=== PATIENT | female | born 1965 | race Caucasian/White ===

== ENCOUNTER 2020-01-19 08:46 | Outpatient (CLI) | payer MEDICAID, SELFPAY ==
[2020-01-21 17:42] LABS: COVID-19 RT-PCR Result NEGATIVE (Negative)
== END 2020-01-19 09:06 ==
PROVIDERS: PCP Neuromusculoskeletal Medicine & OMM; Visit Provider Orthopaedic Surgery
DX: Z11.59 Encounter for screening for other viral diseases (principal); Z01.818 Encounter for other preprocedural examination
CPT/HCPCS: U0003

== ENCOUNTER 2020-07-08 13:06 | Outpatient (REF) | payer MEDICAID, SELFPAY ==
--- NOTE | 2020-07-08 11:42 | PAPFT_PTH ---
PATIENT: Rox Cervantes LOC: [facility] U#:[id number] AGE/SX: 54/F ROOM: RE07/08/[address]: Toya Muniz MD : 1965 BED: DIS: 07/08/2020 SPEC #: [id number] RECD: 07/08/20 18:25 STATUS: JEANETH REAmado #: [id number] DEBORA: 07/08/20 11:[address]: Toya Muniz DEPT: [facility] Cytology RECD BY: Yenifer Leon ENTERED: 07/08/20 18:26 SP TYPE: PAPFT OTHR DR: Percy Roche Tissues: 1 - CX/ENDOCX FOR PAP SMEARS Procedures: PAP THIN PREP/UVM Screening HPV DNA PROBE Comments: [id number]
== END 2020-07-08 13:07 | disposition home or self-care (01) ==
LOC: LBN 13:06
PROVIDERS: PCP Neuromusculoskeletal Medicine & OMM; Visit Provider Obstetrics & Gynecology
DX: Z12.4 Encounter for screening for malignant neoplasm of cervix (principal); Z11.51 Encounter for screening for human papillomavirus (HPV); R87.810 Cervical high risk human papillomavirus (HPV) DNA test positive
CPT/HCPCS: 88142; 87624

== ENCOUNTER 2020-07-16 02:02 | Outpatient (CLI) | payer MEDICAID, SELFPAY ==
--- NOTE | 2020-07-16 06:45 | DI.MAMMO_ITS ---
EXAM: MAMMO SCREENING CLINICAL HISTORY: screening,z12.39 TECHNIQUE: Mammograms were interpreted according to the usual protocol including computer analysis w [employer] CAD system, tomosynthesis and C-view imaging. COMPARISON: FINDINGS: The breasts are of moderate density with fairly symmetrical distribution of fibroglandular tissue. N o dominant mass or clumped microcalcification is identified in either breast. No prior examinations are available for comparison. IMPRESSION: No specific evidence of malignancy at this time. Routine screening examinations are suggested at yea rly intervals in this age group according to the ACS ACR guidelines. BI-RADS Category 1 - Negative Breast Density - Category B - Scattered areas of fibroglandular density
== END 2020-07-16 02:22 ==
PROVIDERS: PCP Neuromusculoskeletal Medicine & OMM; Visit Provider Obstetrics & Gynecology
DX: Z12.31 Encounter for screening mammogram for malignant neoplasm of breast (principal)
CPT/HCPCS: 77063; 77067

== ENCOUNTER → 2022-04-02 13:03 | Outpatient (CLI) | payer MEDICAID, SELFPAY ==
--- NOTE | 2022-04-02 08:00 | DI.RAD_ITS ---
Exam(s) XR KNEE LT 4V AP,LAT,GERALDO,PAT XR KNEE RT 4V AP,LAT,GERALDO,PAT EXAM: XR KNEE RT 4V AP,LAT,GERALDO,PAT CLINICAL HISTORY: Severe knee pain, OA of bilateral knees, M17.0 TECHNIQUE: COMPARISON: CR XR KNEE LT 4V AP,LAT,GERALDO,PAT from 04/02/2022 FINDINGS: Four views of each knee were obtained. On the right, there is mild narrowing of the cartilaginous joint space of the medial tibiofemoral jarred nt. Otherwise cartilaginous joint spaces are well maintained. Moderate marginal osteophytes are not ed involving all 3 joints of the right knee. There are moderate-sized superior and inferior patellar enthesophytes. On the left, there may be slight narrowing of the medial tibiofemoral cartilaginous joint space. Oth erwise cartilaginous joint spaces are well maintained. Mild marginal osteophytes seen involving all 3 joints, superior patellar enthesophyte is also noted. IMPRESSION: Mild DJD both knees period RADIATION DOSE DELIVERED: Total DLP
--- OUTSIDE RECORDS SUMMARY | 2022-04-02 13:05 | XMS_ITS | CCD ---
:1965 Author Care Team Providers Name Role Phone MAE ALVAREZ Attending Physician Unavailable Vital Signs Unknown or Not Available. Allergies Unknown or Not Available. Procedures Unknown or Not Available. History of Immunizations Unknown or Not Available. Problems Unknown or Not Available. Results Unknown or Not Available. Active Medications Unknown or Not Available. Medications Administered During Visit Unknown or Not Available. Encounters Unknown or Not Available. Social History Smoking Status Code Start Date End Date Never smoker [id number] Patient Decision Aids Unknown or Not Available. Discharge Instructions You were admitted to [facility] on 06/21/2021 05:52 You were discharged from [facility] on 06/21/2021 05:52 Should you have any questions prior to d ischarge, please contact a member of your healthcare team. If you have left the [facility] and have any questions, please contact your primary care physician. Chief Complaint and Reason For Visit Unknown or Not Available. Function Status Unknown or Not Available. Plan of Care Unknown or Not Available. Referral/Transition of Care Unknown or Not Available.
--- OUTSIDE RECORDS SUMMARY | 2022-04-02 13:06 | XMS_ITS | Continuity of Care Document ---
:1965 Author Organization [facility] Address [address] [place] [address] Care Team Providers Name Role Phone Percy Roche Primary Care Physician Encounter [facility] Date(s): 02/16/22 - 02/16/22 [facility] [address] [place] [address] Discharge Disposition: Home or Self Care Attending Physician: Rox Clancy NP Admitting Physician: Rox Clancy NP Referring Physician: Rox Clancy FUEL CELL TEST ENGINEER Allergies, Adverse Reactions, Alerts Substance Reaction Severity Status meperidine Unknown Active aspirin Unknown Active cyclobenzaprine Unknown Active Demerol Unknown Active diphenhydrAMINE Unknown Active Assessment and Plan Future Appointments Immunizations Given and Recorded Vaccine Date Status Refusal Reason zoster vaccine, inactivated1 04/28/21 Recorded zoster vaccine, inactivated2 01/06/21 Recorded tetanus-diphth toxoids (Td) adult/adol3 01/06/21 Recorded SARS-CoV-2 (COVID-19) mRNA-1273 vaccine 09/22/20 Recorded SARS-CoV-2 (COVID-19) mRNA-1273 vaccine 08/25/20 Recorded influenza virus vaccine, inactivated 03/31/11 Recorded influenza virus vaccine, inactivated 09/09/10 Recorded tetanus/diphth/pertuss (Tdap) adult/adol 09/09/10 Recorde d 1Result Comment: Validated by RN FUEL CELL TEST ENGINEER. Patient tolerated well. Pressure bandage a2 Result Comment: pt. tolerated vaccine well; diluent Lot# [id number] Comment: pt. tolerated vaccine well Medications erythromycin 0.5% ophthalmic ointment 1 louis, Eye-Both, TID, APPLY 1 CM RIBBON INTO THE LOWER CONJUNCTIVAL SAC(S) IN THE AFFECTED EYE(S) BYOPHTHALMIC ROUTE 3 TIMES PER DAY, 0 Refill(s) Start Date: 12/31/21 Status: Orderedsertraline 100 mg oral tablet 150 mg = 1.5 tab, Oral, Daily, 0 Refill(s) Start Date: 11/18/21 Status: OrderedtraMADol 50 mg oral tablet 50 mg = 1 tab, Oral, every 12 hr, PRN as needed for pain, # 56 tab, 0 Refill(s), Pharmacy: [id number] Start Date: 01/21/22 Status: OrderedtraZODone 50 mg oral tablet 50 mg = 1 tab, Oral, every night at bedtime, 0 Refill(s) Start Date: 11/18/21 Status: Orderedtriamcinolone 0.1% topical cream 1 louis, Topical, BID, # 80 g, 3 Refill(s), Pharmacy: [id number] Start Date: 12/09/21 Status: Ordered Problem List Condition Confirmation Course Effective Dates Status Health I nformant Status Arthropathy Confirmed Active Calcaneal spur of Confirmed Active right foot Carpal tunnel Confirmed Active syndrome Ganglion and cyst of Confirmed Active synovium, tendon and bursa Deformity Confirmed 03/06/20 Active Depressive disorder Confirmed Active Hip pain Confirmed Active Hyperlipidemia Confirmed Active Idiopathic Confirmed Active osteoarthritis Insomnia Confirmed Active Knee pain Confirmed Active Obesity Confirmed Active Plantar fascial Confirmed Active fibromatosis Sciatica Confirmed Active Snoring Confirmed Active Procedures Procedure Date Related Diagnosis Body Site Status Carpal tunnel release1 08/07/21 Compl eted Cholecystectomy 01/03/96 Completed 1Right and Left at [facility] Social History Social History Type Response Tobacco Former tobacco user Tobacco Use:. Sex Female Patient Care team information PersonnelName: Percy Roche DO Address: Address: [place] [facility] [address]
--- OUTSIDE RECORDS SUMMARY | 2022-04-02 13:06 | XMS_ITS | Encounter Summary ---
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 Reason for Visit Reason Comments Follow-up Encounter Details Date Type Department Care Team Description 04/15/2020 Office Visit [facility] Slava Remy fic Achilles tendinitis of left lower extremity (Primary Dx); [facility] Bailee Lawton MD Little's deformity, bilateral [place] [address] Diony [place], [facility] [address] [facility] [phone] Social History Tobacco Use Types Packs/Day Years Used Date Smoking Tobacco: Former Cigarettes 0.3 Quit : 02/2019 Smokeless Tobacco: Never Comments: off and on 15 yrs Sex Assigned at Date Recorded Not on file documented as of this encounter Functional Status Functional Status Response Date of Assessment Because of a physical, mental, or emotional condition, No 03/10/2019 does this person have difficulty doing errands alone such as visiting a doctor's office or shopping? Cognitive Status Response Date of Assessment Because of a physical, mental, or emotional condition, No 03/10/2019 does this person have serious difficulty concentrating, remembering, or making decisions? documented as of this encounter Progress Notes Slava Remy MD - 04/15/2020 1515 EST Diagnosis: ICD-10-CM ICD-9-CM 1. 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 Roche She is now 3 months post left Achilles debridement and Little's resection. The patient denies fever, wound drainage, increasing redness, pus, increasing pain, increasing swelling. Post op problems reported: none. Current immobilization: walking boot. Pain Vitals: Pain Location: Foot Sandhu-Wiley Pain Rating (Scale 0-10): Hurts little more Numeric Pain Level (Scale 1-10): 5 Pain in another site? : No Pain Quality: Aching, Sore, Numbness, Tingling Pain Duration: Continuous Pain Aggravating Factors: Activity, Movement Outpatient Medications Prior to Visit Medication Sig Dispense Refill ??? acetaminophen (TYLENOL) 500 mg tablet Take 500 mg by mouth every 6 hours as needed for Pain. ??? oxyCODONE (ROXICODONE) 5 mg immediate release tablet Take 1 Tab by mouth every 6 hours as neededfor Pain. Daily Max: 20 mg (Patient not taking: Reported on 02/05/2020) 10 Tab 0 ??? promethazine (PHENERGAN) 12.5 mg tablet Take 1 Tab by mouth every 6 hours as needed for Nausea. (Patient not taking: Reported on 02/05/2020) 20 Tab 0 ??? sertraline (ZOLOFT) 100 mg tablet Take 150 mg by mouth daily. ??? traMADol (ULTRAM) 50 mg tablet Take 50 mg by mouth. No facility-administered medications prior to visit. Allergies Allergen Reactions ??? Aspirin ??? Benadryl [Diphenhydramine Hcl] ??? Flexeril [Cyclobenzaprine] Objective: General : alert, no distress Gait: Normal, ambulatory aid: walking boot. Neurosensory: decreased slightly over the lateral left heel Vascular: intact Incision: healing well, no significant drainage, no dehiscence, no significant erythema Tenderness: left: mild Swelling: left: mild ROM: left - her Starks test is physiologic. Imaging: none Assessment: Status post left Achilles debridement and Little's resection. Doing well postoperatively. Plan: ICD-10-CM ICD-9-CM 1. 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 Amb Consult/Follow Up Physical Therapy Immobilization: none Activities: No impact loading activities for 6 weeks. Medications: none Imaging at next visit: none Follow up: Return in about 3 months (around 07/14/2020). Cc: Referring Provider - Dr. Roche PCP - Percy Roche documented in this encounter Plan of Treatment Scheduled Referrals Name Type Priority Associated Diagnoses Order S chedule AMB CONS/FOLLOW UP Outpatient Referral Routine Calcific Achill es Expected: PHYSICAL THERAPY tendinitis of left 04/22 lower extremity (Approximate) Little's deformity, bilateral documented as of this encounter Visit Diagnoses Diagnosis Calcific Achilles tendinitis of left low er extremity - Primary Little's deformity, bilateral documented in this encounter Care Teams Pantograph Ii Engraver Relationship Specialty Start Date End Date Percy Roche DO PCP - General 03/08/[address] [place] [id number] documented as of this encounter
--- OUTSIDE RECORDS SUMMARY | 2022-04-02 13:06 | XMS_ITS | CCD ---
:1965 Author Care Team Providers Name Role Phone MAE ALVAREZ Attending Physician Unavailable Vital Signs Unknown or Not Available. Allergies Allergy Code Allergy Type Reaction Status CYCLOBENZAPRINE 40375 Drug allergy Hives Active BENADRYL 073193 Drug allergy Hives Active ASPIRIN 119 Drug allergy Hives Active Procedures Unknown or Not Available. History of Immunizations Unknown or Not Available. Problems Unknown or Not Available. Results Unknown or Not Available. Active Medications Unknown or Not Available. Medications Administered During Visit Unknown or Not Available. Encounters Encounter Diagnosis Diagnosis Code Start Date Carpal tunnel syndrome, bilateral upper limbs [id number] 08/08/2021 Social History Smoking Status Code Start Date End Date Never smoker [id number] Patient Decision Aids Unknown or Not Available. Discharge Instructions You were admitted to [facility] on 08/08/2021 08:48 with a principal diagnosis of Carpal tunnel syndrome, bilateral upp er limbs You were discharged from [facility] on 08/08/2021 08:48 Should you have any questions prior to d ischarge, please contact a member of your healthcare team. If [facility] and have any questions, please contact your primary care physician. Chief Complaint and Reason For Visit Unknown or Not Available. Function Status Unknown or Not Available. Plan of Care Unknown or Not Available. Referral/Transition of Care Unknown or Not Available.
--- OUTSIDE RECORDS SUMMARY | 2022-04-02 13:06 | XMS_ITS | Encounter Summary ---
:1965 Author Organization [facility] Address [address] [place] [address] Care Team Providers Name Role Phone Percy Roche DO Primary Care Provider Encounter Details Date Type Department Care Team Description 01/23/2020 Hospital Encounter [facility] OR Slava Remy, [address] [place] [address] [facility] [phone] [place] [address] (Wo rk) Social History Tobacco Use Types Packs/Day Years Used Date Smoking Tobacco: Former Cigarettes 0.3 Quit : 02/2019 Smokeless Tobacco: Never Comments: off and on 15 yrs Sex Assigned at Date Recorded Not on file COVID-19 Exposure Response Date Recorded In the last month, have you been in contact with No / Unsure 01/23/2020 6:07 EDT someone who was confirmed or suspected to have Coronavirus / COVID-19? documented as of this encounter Last Filed Vital Signs Vital Sign Reading Time Taken Comments Blood Pressure 138/64 01/23/2020 1115 EDT Pulse - - Temperature 36.4 ??C (97.5 ??F) 01/23/2020 1115 EDT Respiratory Rate 10 01/23/2020 1115 EDT Oxygen Saturation 98% 01/23/2020 1115 EDT Inhaled Oxygen Concentration - - Weight 117.2 kg (258 lb 6.1 oz) 01/23/2020 0706 EDT Height 152.4 cm (5') 01/23/2020 0648 EDT Body Mass Index 50.46 01/23/2020 0648 EDT documented in this encounter Functional Status Functional Status Response [...] making decisions? documented as of this encounter Discharge Instructions Nanette Santana RN - 01/23/2020 Stay non-weight bearing on the left in short-leg splint. Keep incision dry. Followup with Dr. Remy in 2 weeks. Future Appointments Date Time Provider Department [facility] 02[facility]05/2020 8[facility]00 [facility] Pain control: There are 3 forms of medications you can take to decrease your pain. You can take all of them in combination, since that can increase the effectiveness of your pain relief. The three types of medications are: 1. Non-steroidal anti-inflammatories (NSAID's) Motrin/Advil/Ibuprofen - can take 3 pills (600mg) 4 times a day Aleve - you can take 2 pills (440mg) twice a day You should only take one type of NSAID (for example, DO NOT take Aleve with Motrin) 2. Tylenol/acetaminophen - you can take 2 extra-strength pills (500mg each) up to 4 times a day 3. Narcotic - take this as it is prescribed. In general, you can maximize the pain relief using the NSAID and Tylenol before you take the narcotic. At very least, maximizing the use of the NSAID/Tylenol pills should help to decrease your need to use the narcotic medication. PLEASE NOTE THAT YOU MAY BE PREVENTED FROM TAKING EITHER AN NSAID MEDICATION OR TYLENOL DUE TO OTHERMEDICAL CONDITIONS AFFECTING YOUR KIDNEYS, LIVER, OR HEART; OR THEY MAY INTERACT WITH OTHER MEDICATIONS YOU ARE ALREADY TAKING. DO NOT TAKE ANY OF THE NSAID MEDICATIONS IF YOU HAVE PROBLEMS WITH BLEEDING OR CLOTTING, UNLESS YOUR[facility]ALTH[facility] CARE PROVIDER HAS GIVEN THEIR APPROVAL TO TAKE SUCH MEDICATIONS. IF ANY OF THE ABOVE SITUATIONS APPLIES TO YOU, PLEASE FOLLOW THE RECOMMENDATIONS OF YOUR PRIMARY CARE PROVIDER OR GIVE THEM A CALL IF YOU HAVE ANY QUESTIONS OR CONCERNS REGARDING WHAT YOU SHOULD BE TAKING. If there are any questions, please call [phone] and ask for Sammy Hawkins. TakeTylenol again at 4:00pm. documented in this encounter Medications at Time of Discharge Medication Sig Dispensed Refills Start Date End Date acetaminophen (TYLENOL) 500 Take 500 mg by mouth 0 mg tablet every 6 hours as needed for Pain. oxyCODONE (ROXICODONE) 5 mg Take 1 Tab by mouth 10 Tab 0 01/23/2020 immediate release tablet every 6 hours as needed for Pain. Daily Max: 20 mg promethazine (PHENERGAN) Take 1 Tab by mouth 20 Tab 0 12.5 mg tablet every 6 hours as needed for Nausea. sertraline (ZOLOFT) 100 mg Take 150 mg by mouth 0 tablet daily. traMADol (ULTRAM) 50 mg Take 50 mg by mouth. 0 tablet documented as of this encounter Ordered Prescriptions Prescription Sig Dispensed Refills Start Date End Date promethazine (PHENERGAN) Take 1 Tab by mouth 20 Tab 0 12.5 mg tablet every 6 hours as needed for Nausea. oxyCODONE (ROXICODONE) 5 mg Take 1 Tab by mouth 10 Tab 0 01/23/2020 immediate release tablet every 6 hours as needed for Pain. Daily Max: 20 mg documented in this encounter Discharge Disposition Disposition Code Departure Means Destination Home or Self Senior Care documented in this encounter H&P Notes Jerzy Maxwell MD - 01/23/2020 0627 EDT The preoperative history and physical which was performed within 30 days of this procedure has been reviewed and the clinically appropriate elements of the physical examination havebeen repeated. There are no changes to the documented history and physical or if so such changes aredocumented below Jerzy Maxwell MD 01/23/2020 6:27 documented in this encounter Nursing Notes Nancy Woodward RN - 01/23/2020 0702 EDT The Patient Declines testing for prior to the Surgery/ Procedure. The following were Explained to the Patient: ?? Testing is done to minimize the risk of potential adverse effects of Anesthesia/ Surgery on a developing fetus ?? It is a [facility] Policy to test all females who are having menstrual periods ?? It is for their safety and that of a developing fetus should they be ?? The Patient does have the right to decline and understands the risks of not obtaining the test The Surgeon Dr Remy and Anesthesiologist Dr Busby were notified. Nancy Woodward RN - 01/23/2020 0659 EDT Preop Covid DOS screening questionnaire Please document by exception (only check those that apply). Have you had any of the following symptoms recently? No Yes Chronic ? Cough Shortness of breath or difficulty breathing Fever Chills Fatigue Muscle or body aches Severe Headache New loss of taste or smell Sore throat Congestion or runny nose Rash Nausea, vomiting, or diarrhea (rare in adults. More common in children) Were you covid tested? Yes If yes, have you self-isolated/quarantined since your test? Yes See admission vital signs documentation for admission temperature. 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] Post-op Diagnosis * Little's deformity, 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] * Lipoma of left lower extremity [D17.24] * 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 Debridement of left Achilles calcific tendonitis was resection of bone spur at insertion. 2. Resection of left Little deformity. 3. Repair of Achilles tendon on the left with reattachment. 4. resection of lipoma from posterior ankle PREOPERATIVE DIAGNOSIS: Calcific tendinitis with posterior Achilles insertional heel spur and Little deformity. Left posterior-lateral ankle lipoma POSTOPERATIVE DIAGNOSIS: Calcific tendinitis with posterior Achilles insertional heel spur and Little deformity. Left posterior-lateral ankle lipoma SURGEON: Slava Remy MD LEAF STAMPER: MD Alissa ANESTHESIA: General. TOURNIQUET TIME: 58 minutes. ESTIMATED BLOOD LOSS: 5 cc. SPECIMENS: None. DRAINS: None. COMPLICATIONS: None. NARRATIVE: The patient was placed on the operating room table in prone position after anesthesia wasadministered. Preoperative antibiotics were given intravenously. Pneumatic tourniquet was then placed on the left upper calf with adequate Webril underpadding and the left lower extremity was sterilelyprepped and draped in the usual fashion. The leg was then exsanguinated using an Esmarch and then tourniquet inflated to 250 mmHg. A posterior longitudinal incision was then made over the distal Achilles, encompassing the insertion. This was taken down sharply with hemostasis achieved by judicious useof electrocautery. Blunt dissection was then carried out until the tendon sheath was identified. Subc utaneous dissection Was carried out laterally to expose the lipoma, which measured 2 cm x 3 cm. It was circumferentially dissected free of the surrounding soft tissue and resected. The sheath was then carefully from the underlying Achilles tendon. Once this was done, theAchilles was then split over the palpable insertional calcification. The heel spur was then fully exposed. The heel spur was then resected in its entirety. It was seen to encompass >80% of the Achilles insertion. The remaining Achilles was then completely released from its calcaneal insertion and the end of the tendon debrided of calcified and degenerated tissue. Once the heel spur was resected, this allowed direct access to the Little deformity which was then resected by a combination of osteotome, rongeur and rasp. Due to the extensive calcification within the tendon itself that was resected,there was effective shortening of the tendon. This was addressed by a V-Y lengthening that was carried out just above the insertion of the soleus. This achieved a cm of lengthening, which was sufficient to permit full dorsiflexion of the ankle when the distal Achilles was at its attachment. The V-Y lengthening was then sutured using 2-0 Fiberwire. The Achilles reattachment was then accomplished usinga #2 Fiberwire suture passed through the Achilles using a Krackow stitch. A 4.5mm FootPrint suture anchor was then placed into the posterior calcaneus at the site where the Achilles had been detached. The suture was then passed through the suture anchor and tensioned with the ankle in plantarflexion, and then secured. Excellent re-approximation of the Achilles was achieved without any instability of the reconstruction when the ankle was dorsiflexed to neutral. At this point, the wound was copiously i rrigated with solution. The posterior part of the Achilles was then reapproximated using a running 3-0 Monocryl suture distally. The tendon sheath was then repaired using a running 3-0 Monocryl suture.At this point, the tourniquet was deflated and hemostasis achieved. The wound was then closed using 3-0 Monocryl suture in subcutaneous tissue and 5-0 chromic gut in the skin. The incision was injectedwith 0.5% Marcaine without epinephrine. Sterile dressing was then applied and leg placed into a Vincent splint in slight plantarflexion. The vascular status of the foot at the termination of the case wassatisfactory. The patient tolerated the procedure well and was taken to the recovery room in stable condition. Slava Remy MD 01/23/2020 9:28 documented in this encounter Plan of Treatment Not on filedocumented as of this encounter Procedures Procedure Name Priority Date/Time Associated Comments Diagnosis POC US ANESTHESIA Routine 01/23/2020 10:49 Result s for this NERVE BLOCK EDT procedure are i n POPLITEAL FOSSA the results section. 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 Special Needs Pop Block, Foot Set: Drill, K-wire, FootPrint surture anchors, baby Hohmans, Suture:FiberWire EXCISION, TALUS OR 01/23/2020 7:22 EDT Little's deformity, left CALCANEUS, PARTIAL Lipoma of lef t lower extremity Calcific Achilles tendinitis of left lower extremity Special Needs Pop Block, Foot Set: Drill, K-wire, FootPrint surture anchors, baby Hohmans, Suture:FiberWire REPAIR, TENDON, ACHILLES, 01/23/2020 7:22 EDT Johnson glund's deformity, left SECONDARY Lipoma of left l ower extremity Calcific Achilles tendinitis of left lower extremity Special Needs Pop Block, Foot Set: Drill, K-wire, FootPrint surture anchors, baby Hohmans, Suture:FiberWire ECG REPORT - SCANNED 01/18/2020 9:40 EDT documented in this encounter Results POC US ANESTHESIA NERVE BLOCK POPLITEAL FOSSA (01/23/2020 10:49 EDT) Specimen (Source) Anatomical Location Collection Method / Collectio n Time Received Time / Laterality Volume Narrative 01/23/2020 10:49 EDT This is a non-reportable exam. Alejandra Le MD IMG US POC ORDERABLES ECG REPORT - SCANNED (01/18/2020 9:40 EDT) Specimen (Source) Anatomical Collection Method Collection Time Re ceived Time Location / / Volume Laterality 01/18/2020 9:40 EDT Narrative This result has an attachment that is no t available. 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 Calcific Achilles tendinitis of left low er extremity documented in this encounter Administered Medications Inactive Administered Medications - up to 3 most recent administrations Medication Order MAR Action Action Date Dose Rate Site acetaminophen (TYLENOL) tablet Given 01/23/2020 9:57 EDT 1,000 m g 1,000 mg 1,000 mg, oral, Once (NO Time Specified), 1 dose, Starting on Wed01/23/20 at 0945, Until Wed01/23/20 at 0957, Routine atropine 0.1 mg/mL syringe 0.5 mg 0.5 mg, intravenous, PRN, Starting on Wed01/23/20 at 09 06, Until 04/06/20 at 1755, Symptomatic HR < 50, Routine, Recovery (only) fentaNYL citrate (PF) injection 25-50 mc g Given 01/23/2020 10:10 EDT 50 mcg 25-50 mcg, intravenous, EVERY 5 MIN PRN, Starting on Wed01/23/20 at 0906, Until 04/06/20 at 1755, Pain, Routine, Recovery (only) Given 01/23/2020 9:57 EDT 25 mcg HYDROmorphone (PF) (DILAUDID) 0.5 mg/0.5 mL syringe 0.3-0.5 mg 0.3-0.5 mg, intravenous, EVERY 10 MINUTES PRN, Startin g on Wed01/23/20 at 0906, Until 04/06/20 at 1755, Pain, Routine, Recovery (o nly) lactated ringers (LR) infusion Continued by Anesthesia 01/23/2020 8:08 EDT at 25 mL/hr, intravenous, CONTINUOUS, Starting on Wed01/23/20 at 0700, Until 04/06/20 at 1755, Routine, Preprocedure New Bag 01/23/2020 7:15 EDT 25 mL/hr lactated ringers (LR) infusion Rate Documented 01/23/2020 10:04 EDT 75 mL/hr at 75 mL/hr, intravenous, CONTINUOUS, Starting on 01/23/20 at 0930, Until 04/06/20 at 1755, Routine, Recovery (only) naloxone (NARCAN) injection 0.2 mg 0.2 mg, intravenous, PRN, Starting on 01/23/20 at 09 06, Until 04/06/20 at 1755, Opioid Reversal, Routine, Recovery (only) documented in this encounter Historical Medications This list may reflect changes made after this encounter. Medication Sig Dispensed Refills Start Date End Date acetaminophen (TYLENOL) 500 Take 500 mg by mouth 0 mg tablet every 6 hours as needed for Pain. added in this encounter Active and Recently Administered Medications Times are shown in EDT. Scheduled Medication Order 01/21/2020 01/22/2020 01/23/2020 acetaminophen (TYLENOL) tablet 1,000 mg (COMPLETED) 0957 (Given - Provider: Nanette Burrows, LOUANN) 1,000 mg, oral, ONCE, 1 dose, Starting T ue 01/23/20 at 0945, Until Discontinued, Routine ceFAZolin (ANCEF) syringe 2 g (COMPLETED) 0752 (Given - Provider: Efrem Prieto MD) 2 g, intravenous, Administer over 10 Min utes, PRE-OP ONCE, 1 dose, 01/23/20 at 0745, Routine, Preprocedure Continuous Medication Order 01/21/2020 01/22/2020 01/23/2020 lactated ringers (LR) infusion 0 715 (New Bag - Provider: Nancy Woodward RN)0808 (Continued by Anesthesia - Provider: Efrem Prieto MD)0949 (Completed - Provider: Efrem Prieto MD) at 25 mL/hr, intravenous, CONTINUOUS, St arting 01/23/20 at 0700, Until 04/06/20 at 1755, Routine, Preprocedure lactated ringers (LR) infusion 1 004 (Rate Documented - Provider: Nanette Burrows RN) at 75 mL/hr, intravenous, CONTINUOUS, St arting 01/23/20 at 0930, Until 04/06/20 at 1755, Routine, Recovery (only) PRN Medication Order 01/21/2020 01/22/2020 01/23/2020 atropine 0.1 mg/mL syringe 0.5 mg 0.5 mg, intravenous, PRN, Starting Tue at 0906, Until 04/06/20 at 1755, Symptomatic HR < 50, Routine, Recovery (only) fentaNYL citrate (PF) injection 25-50 mcg 0957 (Given - Provider: Nanette Burrows, RN)1010 (Given - Provider: Nanette Burrows, RN) 25-50 mcg, intravenous, EVERY 5 MIN PRN, Starting 01/23/20 at 0906, Until 04/06/20 at 1755, Pain, Routine, Recovery (only) HYDROmorphone (PF) (DILAUDID) 0.5 mg/0.5 mL syringe 0.3-0.5 mg 0.3-0.5 mg, intravenous, EVERY 10 MINUTE S PRN, Starting 01/23/20 at 0906, Until 04/06/20 at 1755, Pain, Routine, Recovery (only) naloxone (NARCAN) injection 0.2 mg 0.2 mg, intravenous, PRN, Starting Tue at 0906, Until 04/06/20 at 1755, Opioid Reversal, Routine, Recovery (only) documented in this encounter Orders Medications Ordered That Might Not Have Count Last Ord ered Date First Ordered Date Been Administered atropine 0.1 mg/mL syringe 0.5 mg 1 01/23/2020 ceFAZolin (ANCEF) syringe 2 g 1 01/23/2020 HYDROmorphone (PF) (DILAUDID) 0.5 mg/0.5 1 020 mL syringe 0.3-0.5 mg lidocaine (PF) 10 mg/mL (1 %) injection 2 1 2019 mg metoCLOPramide (REGLAN) injection 10 mg 1 01/23/20 20 naloxone (NARCAN) injection 0.2 mg 1 01/23/2020 Nursing Count Last Ordered Date First Ordered Date INSERT PERIPHERAL IV 1 01/23/2020 Transfer Count Last Ordered Date First Ordered Date TEACHING SERVICE 1 01/23/2020 Discharge Count Last Ordered Date First Ordered Date DISCHARGE PATIENT 1 01/23/2020 documented in this encounter Care Teams Field Marketing Team Leader Relationship Specialty Start Date End Date Percy Roche DO PCP - General 03/08/19 [address] [place] [address] documented as of this encounter
--- OUTSIDE RECORDS SUMMARY | 2022-04-02 13:06 | XMS_ITS | Clinical Summary ---
:[address] [facility] Address [address] [place] [address] Care Team Providers Name Role Phone Percy Roche DO Primary Care Provider Allergies Active Allergy Reactions Severity Noted Date Comments Aspirin 03/10/2019 Diphenhydramine Hcl 03/10/2019 Cyclobenzaprine 03/10/2019 Medications Medication Sig Dispensed Refills Start Date End Date Status traMADol (ULTRAM) 50 mg Take 50 mg by 0 Active tablet mouth. sertraline (ZOLOFT) 100 Take 150 mg by 0 Active mg tablet mouth daily. acetaminophen (TYLENOL) Take 500 mg by 0 Active 500 mg tablet mouth every 6 hours as needed for Pain. oxyCODONE (ROXICODONE) 5 Take 1 Tab by 10 Tab 0 01/23/2020 Active mg immediate release mouth every 6 tablet hours as needed for Pain. Daily Max: 20 mg Additional Information Patient not taking. Reported on 02/05/2020 promethazine (PHENERGAN) 12.5 Take 1 Tab by mouth every 20 Tab 0 01/23/2020 Active mg tablet 6 hours as needed for Nausea. Additional Information Patient not taking. Reported on 02/05/2020 naproxen sodium (ALEVE) 220 mg tablet Take 220 mg by mouth daily. 0 Active traZODone (DESYREL) 50 mg tablet Take 50 mg by mouth at bedtime. 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 06/12/2019 Little's deformity, bilateral 06/12/2019 Surgical History Surgery Date Site/Laterality Comments CHOLECYSTECTOMY SECTION WRIST GANGLION EXCISION Medical History Medical History Date Comments Achilles tendinitis bilat Little's deformity bilat History of general anesthesia w/o issue Exercise involving walking 1 mile 2 x pe r wk, 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 , can do 2 flights w/o SOB Pain feet and knees Social History Tobacco Use Types Packs/Day Years Used Date Smoking Tobacco: Former Cigarettes 0.3 Quit : 02/2019 Smokeless Tobacco: Never Comments: off and on 15 yrs Sex Assigned at Date Recorded Not on file Obstetrics History Last Filed Vital Signs Vital Sign Reading [...] Body Mass Index 50.46 01/23/2020 0648 EDT Plan of Treatment Health Maintenance Due Date Last Done Comments Hepatitis C Screen 1965 COVID-19 Vaccine (#1) 05/06/1965 Medical Devices Implanted Type Area Temperature Regulator Pyrometer Device Identifier Shelf Model / Expiration Serial / Date Lot [place] Suture Fiberwire 4.5mm Footprint [id number] - [id number] Anch or Left: [employer] [id number] 07/28/2024 [id number] / Implanted: Qty: 1 on 01/23/2020 by Slava Remy MD at [facility] [employer] / [id number] Insurance Payer Benefit Plan Subscriber ID Effective Phone Address Typ e / Group Dates MEDICAID ACO MEDICAID ACO [id number] 2019-Pre [phone] [address] Medicaid [place] sent [address] [facility] [place] [address] (Work) Rox Cervantes Personal/Family Self 1965 [address] (Home) [place] [address] (Work) Rox Cervantes Personal/Family Self 1965 [address]Home) [place] [address] (Work) Rox Cervantes Personal/Family Self 1965 [address] (Home) [place] [address] (Work) Rox Cervantes Personal/Family Self 1965 [address] (Home) [place] [address] (Work) Rox Cervantes Personal/Family Self 1965 [address] (Home) [place] [address] (Work) Rox Cervantes Personal/Family Self 1965 [address]Home) [place] [address] (Work) Rox Cervantes Personal/Family Self 1965 [address] (Home) [place] [address] (Work) Advance Directives For more information, please contact: [phone] Latest Code Status on File Code Status Date Activated Date Inactivated Comments Full Code 01/23/2020 7:16 04/06/2020 17:55 Reason for decision includes: Full code consistent with over all plan of care Who participated in the discussion? Not Discussed Care Teams Rail Bonder Relationship Specialty Start Date End Date Percy Roche DO PCP - General 03/08/19 [address] [place] [address]
--- OUTSIDE RECORDS SUMMARY | 2022-04-02 13:06 | XMS_ITS | CCD ---
:1965 Author Care Team Providers Name Role Phone MAE ALVAREZ Attending Physician Unavailable Vital Signs Unknown or Not Available. Allergies Allergy Code Allergy Type Reaction Status CYCLOBENZAPRINE 29127 Drug allergy Hives Active BENADRYL 20330920 Drug allergy Hives Active ASPIRIN 1191 Drug allergy Hives Active Procedures Procedure Code Procedure Type Date Neuroplasty &/Or Transposition; [place] [address] CPT 08/08/2021 Carpal Tunnel History of Immunizations Unknown or Not Available. Problems Unknown or Not Available. Results Unknown or Not Available. Active Medications Medications Administered During Visit Medication Dose Units Frequency Route Date/Time of L ast Dose CEPHALEXIN CAPSULE: 500MG 1000 MG X1 PO 08/08/2021 13:34 ACETAMINOPHEN TABLET: 325MG 975 MG X1 PO 08/08/2021 13:34 Encounters Encounter Diagnosis Diagnosis Code Start Date Carpal tunnel syndrome, bilateral upper limbs G5603 08/08/2021 Social History Smoking Status Code Start Date End Date Never smoker [id number] Patient Decision Aids Unknown or Not Available. Discharge Instructions You were admitted to [facility] on 08/08/2021 12:01 with a principal diagnosis of Carpal tunnel syndrome, bilateral upp er limbs You had the following procedures done: Neuroplasty &/Or Transposition; Median Nerve At Carpal Tunnel You were discharged from [facility] on 08/08/2021 15:30 Should you have any questions prior to [...]
--- OUTSIDE RECORDS SUMMARY | 2022-04-02 13:06 | XMS_ITS | CCD ---
:1965 Author Care Team Providers Name Role Phone MAE ALVAREZ Attending Physician Unavailable Vital Signs Unknown or Not Available. Allergies Allergy Code Allergy Type Reaction Status CYCLOBENZAPRINE Drug allergy Hives Active BENADRYL 20330920 Drug allergy Hives Active ASPIRIN 1191 Drug allergy Hives Active Procedures Unknown or Not Available. History of Immunizations Unknown or Not Available. Problems Unknown or Not Available. Results [facility] COVID RHEONIX* - Collect Date/Robel e: 08/06/2021 09:38 Test Name Code Test Result Test Units Test Ref Range Tier- 63242-2 PRE-OP N/A SARS COV2 RNA: 52050-1 NEGATIVE N/A REFERENCE RAN GE: NEGAT Active Medications Unknown or Not Available. Medications Administered During Visit Unknown or Not Available. Encounters Encounter Diagnosis Diagnosis Code Start Date Pre-surgery testing [id number] 08/06/2021 Social History Smoking Status Code Start Date End Date Never smoker [id number] Patient Decision Aids Unknown or Not Available. Discharge Instructions You were admitted to [facility] on 08/06/2021 06:14 with a principal diagnosis of Encounter for preprocedural laborator y examination You had the following tests done: COPLE Y COVID RHEONIX* You were discharged from [facility] on 08/06/2021 06:14 Should you have any questions prior to [...]
--- OUTSIDE RECORDS SUMMARY | 2022-04-02 13:06 | XMS_ITS | Encounter Summary ---
:1965 Author Organization [facility] Address [address] [place] [address] Care Team Providers Name Role Phone Percy Roche DO Primary Care Provider Encounter Details Date Type Department Care Team Description 07/09/2020 Lab Requisition [facility] Toya Muniz for other Pathology & MD Albert general examination Laboratory Medicine [address] [facility], [id number] [place] [address] [phone] (Wo rk) Social History Tobacco Use Types [...] making decisions? documented as of this encounter Plan of Treatment Not on filedocumented as of this encounter Procedures Procedure Name Priority Date/Time Associated Comments Diagnosis PAP TEST Today 07/08/2020 11:42 Encounter for other Resu lts for this EST general examination procedur e are in the results section. HUMAN PAPILLOMAVIRUS Today 07/08/2020 11:42 Encounter for ot her Results for this (HPV) DETECTION-HIGH EST general examination procedure are in RISK TYPES the results section. documented in this encounter Results (ABNORMAL) HUMAN PAPILLOMAVIRUS (HPV) DETECTION-HIGH RISK TYPES (07/08/2020 11:42 EST) [facility] [employer] Method Time Signature Human Positive Negative 07/18/2020 [facility] MEDICAL Papillomavirus (A) 10:36 EST CENTER (HPV) LABORATORY Detection-High SERVICES Types Comment: E6 OR E7 mRNA from one or more types of HPV types 16,18,31,33,35,39,45,51,52,56,58,59,66, and 68 is detected by business continuity consultant mediated amplification. High and intermediate ris k HPV types are associated with most squamous intraepithelial lesions and cervical can cers. Specimen Anatomical Collection Method Collection Time Receive d Time (Source) Location / / Volume Laterality Pap Test (Cervix 07/08/2020 11:42 021 and/or EST 15:32 EST Endocervix) Toya Muniz MD MICROBIOLOGY - GENERAL ORDER KARL Performing Organization Address City/State/ZIP Code Phon e Number [facility] [address] [place] [address] SERVICES PAP TEST (07/08/2020 11:42 EST) Component Value Ref Test Analysis Performed At [facility] [employer] Range Method Time Signature Specimens A. Cervix and/or 07/18/2020 [facility] MEDICAL Endocervix , 10:[address] [facility] CENTER ThinPrep Imaging LABORATORY System with SERVICES Manual Evaluation Specimen Satisfactory for 07/18/2020 [facility] MEDICAL Adequacy Evaluation - 10:36 EST CENTER transformation LABORATORY zone component SERVICES present General Negative for 07/18/2020 [facility] MEDICAL Categorization intraepithelial 10:36 EST CENTER lesion or LABORATORY malignancy SERVICES Descriptive Shift in jayme 07/18/2020 [facility] MEDICAL Diagnosis present 10:36 EST CENTER suggestive of LABORATORY bacterial SERVICES vaginosis. Attestation . 07/18/2020 [facility] MEDICAL Elect ronically 10:36 EST CENTER signed by LABORATORY Graciela Phillips, SERVICES CT(ASCP) o n 07/18/2020 a t 1036 Clinical History See below 07/18/2020 [facility] 10:36 [facility] LABORATORY SERVICES HPV The result for the Human Pap illomavirus (HPV) Detection-High Risk Types is Positive . E6 OR E7 mRNA from one or more types of HPV types 16,18,31,33,35,39,45,51,52,56,58,59,66, and 68 is detected by escalante 07/18/2020 [facility] scription mediated amplifica tion. High and intermediate risk HPV types are associated with most squamous intraepithelial lesions and cervical cancers. Testing was performed on specimen [id number] and 10 :[address] [facility] CENTER was resulted on 07/18/2020 1022 EST by JAYSHREE BOWLING RESULTS IN LABORATORY SERVICES Performing Lab [facility] 07/18/2020 [facility] MEDIC AL LAB 10:36 [facility] LABORATORY SERVICES Scanned Images 07/18/2020 [facility] 10:36 [facility]ORY SERVICES Specimen Anatomical Collection Method Collection Time Receive d Time (Source) Location / / Volume Laterality Pap Test (Cervix 07/08/2020 11:42 021 and/or EST 14:41 EST Endocervix) Toya Muniz MD PATHOLOGY ORDERABLES Performing Organization Address City/State/ZIP Code Phon e Number [facility] [address] [place] [address] SERVICES documented in this encounter Visit Diagnoses Diagnosis Encounter for other general examination documented in this encounter Care Teams Sheet Fed Printer Relationship Specialty Start Date End Date Percy Roche DO PCP - General 03/08/[address] [place] [address] documented as of this encounter
--- OUTSIDE RECORDS SUMMARY | 2022-04-02 13:06 | XMS_ITS | CCD ---
:1965 Author Care Team Providers Name Role Phone MAE ALVAREZ Attending Physician Unavailable Vital Signs Unknown or Not Available. Allergies Allergy Code Allergy Type Reaction Status CYCLOBENZAPRINE 16648 Drug allergy Hives Active BENADRYL 20330920 Drug allergy Hives Active ASPIRIN 1191 Drug allergy Hives Active Procedures Unknown or Not Available. History of Immunizations Unknown or Not Available. Problems Unknown or Not Available. Results [facility] COVID RHEONIX* - Collect Date/Robel e: 07/30/2021 10:14 Test Name Code Test Result Test Units Test Ref Range Tier- 51762-6 PRE-OP N/A SARS COV2 RNA: 54372-4 NEGATIVE N/A REFERENCE RAN GE: NEGAT Active Medications Unknown or Not Available. Medications Administered During Visit Unknown or Not Available. Encounters Encounter Diagnosis Diagnosis Code Start Date Pre-surgery testing [id number] 07/30/2021 Social History Smoking Status Code Start Date End Date Never smoker [id number] Patient Decision Aids Unknown or Not Available. Discharge Instructions You were admitted to [facility] on 07/30/2021 05:42 with a principal diagnosis of Encounter for preprocedural laborator y examination You had the following tests done: COPLE Y COVID RHEONIX* You were discharged from [facility] on 07/30/2021 05:42 Should you have any questions prior to [...]
--- OUTSIDE RECORDS SUMMARY | 2022-04-02 13:06 | XMS_ITS | CCD ---
:1965 Author Care Team Providers Name Role Phone CHARY LI Attending Physician Unavailable CHARY LI Rounding (Secondary) Physician Unavailab le Vital Signs Unknown or Not Available. Allergies Allergy Code Allergy Type Reaction Status CYCLOBENZAPRINE 85954 Drug allergy Hives Active BENADRYL 137076 Drug allergy Hives Active ASPIRIN 1191 Drug allergy Hives Active Procedures Unknown or Not Available. History of Immunizations Unknown or Not Available. Problems Unknown or Not Available. Results Unknown or Not Available. Active Medications Unknown or Not Available. Medications Administered During Visit Unknown or Not Available. Encounters Encounter Diagnosis Diagnosis Code Start Date Procedure on nervous system [id number] 08/22/2021 Social History Smoking Status Code Start Date End Date Never smoker 530381957 Patient Decision Aids Unknown or Not Available. Discharge Instructions You were admitted to [facility] on 08/22/2021 11:09 with a principal diagnosis of Encounter for surgical aftercare foll owing surgery on the nervous system You were discharged from [facility] on 08/22/2021 00:00 Should you have any questions prior to [...]
--- OUTSIDE RECORDS SUMMARY | 2022-04-02 13:06 | XMS_ITS | Encounter Summary ---
:1965 Author Organization [facility] Address [address] [place] [address] Care Team Providers Name Role Phone Percy Roche DO Primary Care Provider Reason for Visit Reason Onset Date Comments COVID-19 01/17/2020 Encounter Details Date Type Department Care Team Description 01/17/2020 Telephone [facility] Slava Lezama MD [facility] [address] [place] [address] [address] [phone] Social History Tobacco Use Types Packs/Day Years Used Date Smoking Tobacco: Former Cigarettes 0.3 Quit : 02/2019 Smokeless Tobacco: Never Comments: off and on 15 yrs Sex Assigned at Date Recorded Not on file COVID-19 Exposure Response Date Recorded In the last month, have you been in contact with No / Unsure 01/15/2020 15:43 EDT someone who was confirmed or suspected to have Coronavirus / COVID-19? documented as of this encounter Functional Status [...] making decisions? documented as of this encounter Miscellaneous Notes Telephone Encounter - Coty Gonzáles - 01/18/2020 0952 EDT Called patient regarding covid testing for procedure 01/22. LMOM x 2 to call @ [phone] to schedule 01/17-01/18 by 12 Telephone Encounter - Patrica Koenig - 01/17/2020 0943 EDT Called patient to schedule COVID-19 testing. Requested a call back @[phone] on [phone] & [phone]. This is our 1st attempt at contacting patient documented in this encounter Plan of Treatment Not on filedocumented as of this encounter Visit Diagnoses Not on filedocumented in this encounter Care Teams Manager Proposal Relationship Specialty Start Date End Date Percy Roche DO PCP - General 03/08/19 [address] [place] [address] documented as of this encounter
--- OUTSIDE RECORDS SUMMARY | 2022-04-02 13:06 | XMS_ITS | CCD ---
:1965 Author Care Team Providers Name Role Phone MAE ALVAREZ Attending Physician Unavailable MAE ALVAREZ Rounding (Secondary) Physician Unavaila ble Vital Signs Unknown or Not Available. Allergies Unknown or Not Available. Procedures Unknown or Not Available. History of Immunizations Unknown or Not Available. Problems Unknown or Not Available. Results Unknown or Not Available. Active Medications Unknown or Not Available. Medications Administered During Visit Unknown or Not Available. Encounters Encounter Diagnosis Diagnosis Code Start Date Carpal tunnel syndrome, bilateral upper limbs G5603 07/16/2021 Social History Smoking Status Code Start Date End Date Never smoker [id number] Patient Decision Aids Unknown or Not Available. Discharge Instructions You were admitted to [facility] on 07/16/2021 15:34 with a principal diagnosis of Carpal tunnel syndrome, bilateral upp er limbs You were discharged from [facility] on 07/16/2021 00:00 Should you have any questions prior to d ischarge, please contact a member of your healthcare team. If you have left the spital and have any questions, please contact your primary care physician. Chief Complaint and Reason For Visit Unknown or Not Available. Function Status Unknown or Not Available. Plan of Care Unknown or Not Available. Referral/Transition of Care Unknown or Not Available.
--- OUTSIDE RECORDS SUMMARY | 2022-04-02 13:06 | XMS_ITS | Encounter Summary ---
:1965 Author Organization [facility] Address [address] [place] [address] Care Team Providers Name Role Phone Percy Roche DO Primary Care Provider Reason for Visit Reason Comments Foot Problem Encounter Details Date Type Department Care Team Description 07/15/2020 Office Visit [facility] Slava Remy fic Achilles tendinitis of both lower extremities (Primary Dx); Foot & Ankle Program - MD Leighann Little's deformity, bilateral [address] [place], [facility] [address] [phone] Social History Tobacco Use Types Packs/Day Years [...] encounter Progress Notes Slava Remy MD - 07/15/2020 1245 EST Diagnosis: ICD-10-CM ICD-9-CM 1. 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 Roche She is now 6 months post left Achilles debridement and Little's resection. The patient denies fever, wound drainage, increasing redness, pus, increasing pain, increasing swelling. Post op problems reported: Persistent but improving numbness over the dorsolateral left foot/ankle. Current immobilization: none. Pain Vitals: Pain Location: Foot Numeric Pain Level (Scale 1-10): 0 Outpatient Medications Prior to Visit Medication Sig Dispense Refill ??? acetaminophen (TYLENOL) 500 mg tablet Take 500 mg by mouth every 6 hours as needed for Pain. ??? naproxen sodium (ALEVE) 220 mg tablet Take 220 mg by mouth daily. ??? oxyCODONE (ROXICODONE) 5 mg immediate release [...] mg tablet Take 50 mg by mouth. ??? traZODone (DESYREL) 50 mg tablet Take 50 mg by mouth at bedtime. No facility-administered medications prior to visit. Allergies Allergen Reactions ??? Aspirin ??? Benadryl [Diphenhydramine Hcl] ??? Flexeril [Cyclobenzaprine] Objective: General : alert, no distress Gait: Normal, ambulatory aid: none. Neurosensory: decreased over the left SPN Vascular: intact Incision: healing well, no significant drainage, no dehiscence, no significant erythema Tenderness: left: none Swelling: left: mild ROM: left - her Starks test is physiologic. Imaging: none Assessment: Status post left Achilles debridement and Little's resection. Doing well postoperatively. She wantsto begin the process to schedule her surgery on the right side. This would also be an Achilles debridement with possible reattachment, and Little's resection. Risks and benefits of the surgery were discussed with the patient (including risks of infection, bleeding, nerve damage, healing, and anesthesia), and all questions were answered. She understands and will call when she wishes to proceed with the surgery. Plan: ICD-10-CM ICD-9-CM 1. 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 Immobilization: none Activities: Activities as tolerated Medications: none Imaging at next visit: none Follow up: Return for surgery on the right. Cc: Referring Provider - Dr. Roche PCP - Percy Roche documented in this encounter Plan of Treatment Not on filedocumented as of this encounter Visit Diagnoses Diagnosis Calcific Achilles tendinitis of both low er extremities - Primary Little's deformity, bilateral documented in this encounter Historical Medications This list may reflect changes made after this encounter. Medication Sig Dispensed Refills Start Date End Date traZODone (DESYREL) 50 mg Take 50 mg by mouth 0 tablet at bedtime. naproxen sodium (ALEVE) Take 220 mg by mouth 0 220 mg tablet daily. added in this encounter Care Teams Atomic Physics Professor Relationship Specialty Start Date End Date Percy Roche DO PCP - General 03/08/[address] [place] [address] documented as of this encounter
--- OUTSIDE RECORDS SUMMARY | 2022-04-02 13:06 | XMS_ITS | Encounter Summary ---
:1965 Author Organization [facility] Address [address] [place] [address] Care Team Providers Name Role Phone Percy Roche DO Primary Care Provider Encounter Details Date Type Department Care Team Description 01/23/2020 Surgery [facility] Main [place] OR Slava Remy, left debridement / [address] Christo arcos MD repair achilles, [place] [address] spur removal, resection [phone] [place], [place] [address] flexur hallux longus [phone] (Wo rk) transfer for achilles reconstru ction, removal ankle lipoma [2 7654 (CPT??)] Surgery Details Date/Time Status Location OR Service Patient Class Case Class Case Trauma Type Case? 01/23/20 0725 Posted [facility] OR [facility] Orthopedics [facility] H - Outpatient Elective Surgery Panel 1 Procedure LRB Anes Op Region Wound Class Commen ts left debridement / repair Left Patient Choice Ankle Class I/ Clean 90 mins achilles, bone spur removal, resection [place], [place] flexur hallux longus transfer for achilles reconstruction, removal ankle lipoma PARTIAL EXCISION, BONE; Left Patient Choice Ankle Class I/ Clean TALUS/CALCANEUS EXCISION, TUMOR, SOFT TISSUE Left Patient Choice Ankle Cla ss I/ Clean FOOT/TOE; SUBQ TISSUE Surgeon Surgeon Role Service Panel Slava Remy MD Primary Orthopedics 1 Jerzy Maxwell MD Resident - Assisting Orthopedics 1 Special Needs Pop Block, Foot Set: Drill, K-wire, Foot Print surture anchors, baby Hohmans, Suture:FiberWire documented in this encounter Social History Tobacco Use Types Packs/Day Years [...] Sign Reading Time Taken Comments Blood Pressure 132/72 01/23/2020 0949 EDT Pulse - - Temperature 36.3 ??C (97.3 ??F) 01/23/2020 0949 EDT Respiratory Rate 10 01/23/2020 0949 EDT Oxygen Saturation 99% 01/23/2020 0949 EDT Inhaled Oxygen Concentration - - Weight [...] Department Center 02/05/2020 8:00 Slava Remy MD TillFootAnk None Pain control: There are 3 forms [...] HAVE PROBLEMS WITH BLEEDING OR CLOTTING, UNLESS [facility] CARE PROVIDER HAS GIVEN THEIR APPROVAL TO TAKE SUCH MEDICATIONS. IF ANY OF THE ABOVE SITUATIONS APPLIES TO YOU, PLEASE FOLLOW THE RECOMMENDATIONS OF YOUR PRIMARY CARE PROVIDER OR GIVE THEM A CALL IF YOU HAVE ANY QUESTIONS OR CONCERNS REGARDING WHAT YOU SHOULD BE TAKING. If there are any questions, please call [phone] and ask for Sammy Hawkins. TakeTylenol again [...] Code Departure Means Destination Home or Self Nursing Home documented in this encounter H&P Notes Jerzy [...] a developing fetus ?? It is a [facility] Policy to test all females who are [...] TISSUE (L) Operative Note Date: 01/23/2020 Location: [facility] OR Name: Rox Cervantes, : 1965, Diagnosis [...] transfer for achilles reconstruction, removal ankle lipoma [address]47[address] - IN REPAIR ACHILLES TENDON,SECONDARY PARTIAL EXCISION, BONE; TALUS/CALCANEUS 94885 - IN PART REMV TALUS OR CALCANEUS EXCISION, TUMOR, SOFT TISSUE FOOT/TOE; SUBQ TISSUE 39595 - IN EXCISION TUMOR SOFT TISSUE FOOT/TOE SUBQ <1.5CM [...] posterior-lateral ankle lipoma SURGEON: Slava Remy MD CHEESE SUPERVISOR: MD Alissa ANESTHESIA: General. TOURNIQUET TIME: 58 [...] that is no t available. 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 Calcific Achilles tendinitis of left low er extremity Little's deformity, left Lipoma of left lower extremity Calcific Achilles tendinitis of left low er [...] mg 0.5 mg, intravenous, PRN, Starting on 01/23/20 at 09 06, Until 04/06/20 at 1755, Symptomatic HR < 50, Routine, Recovery (only) fentaNYL citrate (PF) injection 25-50 mc g Given 01/23/2020 10:10 EDT 50 mcg 25-50 mcg, intravenous, EVERY 5 MIN PRN, Starting on 01/23/20 at 0906, Until 04/06/20 at 1755, Pain, Routine, Recovery (only) Given 01/23/2020 9:57 EDT 25 mcg HYDROmorphone (PF) (DILAUDID) 0.5 mg/0.5 mL syringe 0.3-0.5 mg 0.3-0.5 mg, intravenous, EVERY 10 MINUTES PRN, Startin g on 01/23/20 at 0906, Until 04/06/20 at 1755, Pain, Routine, Recovery (o nly) lactated ringers (LR) infusion Continued by Anesthesia 01/23/2020 8:08 EDT at 25 mL/hr, intravenous, CONTINUOUS, Starting on 01/23/20 at 0700, Until 04/06/20 at 1755, Routine, Preprocedure New Bag 01/23/2020 7:15 EDT 25 mL/hr lactated ringers (LR) infusion Rate Documented 01/23/2020 10:04 EDT 75 mL/hr at 75 mL/hr, intravenous, CONTINUOUS, Starting on e 01/23/20 at 0930, Until 04/06/20 at 1755, [...] (COMPLETED) 0957 (Given - Provider: Nanette Burrows, RN) 1,000 mg, oral, ONCE, 1 dose, Starting [...] Burrows, RN)1010 (Given - Provider: Nanette Burrows, LOUANN) 25-50 mcg, intravenous, EVERY 5 MIN PRN, [...] 01/23/2020 documented in this encounter Care Teams Recreation Leader Relationship Specialty Start Date End Date Percy Roche DO PCP - General 03/08/19 [address] [place] [address] documented as of this encounter
--- OUTSIDE RECORDS SUMMARY | 2022-04-02 13:06 | XMS_ITS | Encounter Summary ---
:1965 Author Organization [facility] Address [address] [place] [address] Care Team Providers Name Role Phone Percy Roche DO Primary Care Provider Reason for Visit Reason Comments Tendonitis Left ankle Encounter Details Date Type Department Care Team Description 03/04/[address] [facility] Slava Remy nd's deformity, bilateral (Primary Dx); Foot & Ankle Program - MD Leighann Calcific Achilles tendinitis of left low er extremity [address] [place], [facility] [phone] Social History Tobacco Use Types Packs/Day Years [...] as of this encounter Progress Notes Slava Rmey MD - 03/04/2020 1100 EDT Diagnosis: ICD-10-CM ICD-9-CM 1. 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 Brenna stroud. provider found She is now 6 weeks post left Achilles debridement with reattachment, and Little's resection. The patient denies fever, wound drainage, increasing redness, pus, increasing pain, increasing swelling. Post op problems reported: none. Current immobilization: Achilles walking boot. Pain Vitals: Pain Location: Ankle Numeric Pain Level (Scale 1-10): 4 Pain Quality: Sore Facility-Administered Medications Prior to Visit Medication Dose Route Frequency Provider Last Rate Last Dose ??? atropine 0.1 mg/mL syringe 0.5 mg 0.5 mg intravenous PRN Efrem Prieto MD ??? fentaNYL citrate (PF) injection 25-50 mcg 25-50 mcg intravenous Q5 MINUTES PRN Efrem Prieto MD 50 mcg at 01/23/20 1010 ??? HYDROmorphone (PF) (DILAUDID) 0.5 mg/0.5 mL syringe 0.3-0.5 mg 0.3-0.5 mg intravenous Q10 MINUTES PRN Efrem Prieto MD ??? lactated ringers (LR) infusion intravenous CONTINUOUS Radha Cardenas MD Stopped at 01/23/20 0949 ??? lactated ringers (LR) infusion intravenous CONTINUOUS Efrem Prieto MD 75 mL/hr at 01/22/201004 ??? naloxone (NARCAN) injection 0.2 mg 0.2 mg intravenous PRN Efrem Prieto MD Outpatient Medications Prior to Visit Medication Sig [...] mg tablet Take 50 mg by mouth. Allergies Allergen Reactions ??? Aspirin ??? Benadryl [Diphenhydramine Hcl] ??? Flexeril [Cyclobenzaprine] Objective: General : alert, no distress Gait: Normal, ambulatory aid: Achilles walking boot. Neurosensory: intact Vascular: intact Incision: healing well, no significant drainage, no dehiscence, no significant erythema Tenderness: left: mild Swelling: left: mild ROM: left - her Starks test is physiologic, ankle passively to neutral without pain Imaging: none Assessment: Status post left Achilles debridement with reattachment, and Little's resection. Doing well postoperatively. Plan: ICD-10-CM ICD-9-CM 1. 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 Pneumatic Walking Boot - Tall (L4360) Immobilization: walking boot Activities: No impact loading activities. Medications: none Imaging at next visit: none Follow up: Return in about 6 weeks (around 04/15/2020). Cc: Referring Provider - Dr. Ceja ref. provider found PCP - Percy Roche Amandeep Huffman MA - 03/04/2020 1100 EDT Patient has received and signed [facility] patient consent form. Copy of consent will be placedin the scans section of patient chart. AMANDEEP HUFFMAN MA documented in this encounter Plan of Treatment Not on filedocumented as of this encounter Visit Diagnoses Diagnosis Little's deformity, bilateral - Primary Calcific Achilles tendinitis of left low er extremity documented in this encounter Orders Equipment Count Last Ordered Date First Ordered Date PNEUMATIC WALKING BOOT - TALL (L4360) 1 03/04/2020 documented in this encounter Care Teams Senior Librarian Relationship Specialty Start Date End Date Percy Roche DO PCP - General 03/08/19 [address] [place] [address] documented as of this encounter
--- OUTSIDE RECORDS SUMMARY | 2022-04-02 13:06 | XMS_ITS | Encounter Summary ---
:1965 Author Organization [facility] Address [address] [place] [address] Care Team Providers Name Role Phone Percy Roche DO Primary Care Provider Encounter Details Date Type Department Care Team Description 01/19/2020 Lab Requisition [facility] Outr Resulting Lab, Pathology & Laboratory Provider General acute hospital [address] [place] [address] Social History Tobacco Use Types Packs/Day Years [...] Procedure Name Priority Date/Time Associated Comments Diagnosis DO NOT ORDER Today 01/19/2020 11:38 Results for this STANDALONE - [facility] EDT procedure are in COVID TEST the results section. COVID-19 TESTING Routine 01/19/2020 11:38 Results for this EDT procedure are i n the results section. documented in this encounter Results DO NOT ORDER STANDALONE - [facility] COVID TEST (01/19/2020 11:38 EDT) Analysis Performed At Patho logist Time Signature COVID-19 NEGATIVE Negative 01/21/2020 [facility] rt-PCR Result 15:18 EDT [facility] Comment: 2019-novel Coronavirus (2019-nCoV) not d etected by the qRT-PCR assay. Consider testing for other respiratory viruses or re-collecting for 2019-nCoV testing. Note: Optimum timing for peak viral levels du ring infections caused by 2019-nCoV have not been determined. Collection of multiple specimens from the same patient may be necessary to detect the virus. Limitations Positive results are indicative of activ e infection with SARS-CoV-2 but do not rule out bacterial infection or co-infection with other viruses. The agent detected may not be the definite cause of diseas e. In addition, detection of viral RNA m ay not indicate the presence of infectious virus or that SARS-CoV-2 is the causative agent for clinical symptoms. Negative results do not preclude SARS-Co V-2 infection and should not be used as the sole basis for patient management decisions. Negative results must be combined with clinical observations, patient his tory, and epidemiological information. F alse negative results may also occur if amplification inhibitors are present in the specimen or if inadequate numbers of organisms are present in the specimen. Op timum specimen types and timing for peak viral levels during infections caused by SARS-CoV-2 have not been fully determined. Collection of multiple specimens (types and time points) from the same patient may be necessary to detect the virus. The test was validated for use with uppe r respiratory specimens obtained via nasopharyngeal or oropharyngeal swabs in VTM, UTM, M4, M5, M6, saline, and MTM media. The performance of this test has not be en established for other specimens. Spec imens collected using other FDA recommended Specimen Collection Materials listed in the FDA COVID-19 [employer] communication (August 10, 2019) are pr ocessed with the caveat that they were n ot all validated for use with this test and the result must be interpreted in this context. Furthermore, a false negative results may occur if a specimen is improperly collected, transported or handled. If the virus mutates in the RT-PCR targe t region, SARS-CoV-2 may not be detected or may be detected less predictably. Inhibitors or other types of interferenc e may produce a false negative result. An interference study evaluating the effect of common cold medications was not performed. This test is not FDA-cleared but its per formance characteristics were established by our CLIA-certified, CAP-accredited, high complexity laboratory in accordance with CLIA regulations, [employer] (CAP) guidelines (Jul), and FDA guidance (Jul 15, 2019). This test is only for use under the Food and Drug Administration's Emergency Use Authorization. Specimen Anatomical Location Collection Method Collection Time Received Time (Source) / Laterality / Volume Swab ENTIRE NASOPHARYNX 01/19/2020 11:38 01/18 / Unknown EDT 15:39 EDT Provider Outr Resulting Lab MICROBIOLOGY - GENERAL ORD ERABLES Performing Organization Address City/State/ZIP Code Phon e Number [facility] [place], [place] COVID-19 TESTING (01/19/2020 11:38 EDT) [facility] Signature COVID-19 NEGATIVE Negative 01/21/2020 [facility] rt-PCR Result 17:36 EDT [facility] Comment: 2019-novel Coronavirus (2019-nCoV) not d etected by the qRT-PCR assay. Consider testing for other respiratory viruses or re-collecting for 2019-nCoV testing. Note: Optimum timing for peak viral levels du ring infections caused by 2019-nCoV have not been determined. Collection of multiple specimens from the same patient may be necessary to detect the virus. Limitations Positive results are indicative of activ e infection with SARS-CoV-2 but do not rule out bacterial infection or co-infection with other viruses. The agent detected may not be the definite cause of diseas e. In addition, detection of viral RNA m ay not indicate the presence of infectious virus or that SARS-CoV-2 is the causative agent for clinical symptoms. Negative results do not preclude SARS-Co V-2 infection and should not be used as the sole basis for patient management decisions. Negative results must be combined with clinical observations, patient his tory, and epidemiological information. F alse negative results may also occur if amplification inhibitors are present in the specimen or if inadequate numbers of organisms are present in the specimen. Op timum specimen types and timing for peak viral levels during infections caused by SARS-CoV-2 have not been fully determined. Collection of multiple specimens (types and time points) from the same patient may be necessary to detect the virus. The test was validated for use with uppe r respiratory specimens obtained via nasopharyngeal or oropharyngeal swabs in VTM, UTM, M4, M5, M6, saline, and MTM media. The performance of this test has not be en established for other specimens. Spec imens collected using other FDA recommended Specimen Collection Materials listed in the FDA COVID-19 [employer] communication (August 10, 2019) are pr ocessed with the caveat that they were n ot all validated for use with this test and the result must be interpreted in this context. Furthermore, a false negative results may occur if a specimen is improperly collected, transported or handled. If the virus mutates in the RT-PCR targe t region, SARS-CoV-2 may not be detected or may be detected less predictably. Inhibitors or other types of interferenc e may produce a false negative result. An interference study evaluating the effect of common cold medications was not performed. This test is not FDA-cleared but its per formance characteristics were established by our CLIA-certified, CAP-accredited, high complexity laboratory in accordance with CLIA regulations, College of [employer]ologists (CAP) guidelines (Jul), and FDA guidance (Jul 15, 2019). This test is only for use under the Food and Drug Administration's Emergency Use Authorization. Performing Lab [facility] 01/21/2020 17:3 6 EDT [facility] Specimen Anatomical Collection Method Collection Time Receive d Time (Source) Location / / Volume Laterality Swab 01/19/2020 11:38 01/19/2020 EDT 15:39 EDT Provider Outr Resulting Lab MICROBIOLOGY - GENERAL ORD ERABLES Performing Organization Address City/State/ZIP Code Phon e Number [facility] [address] [place] [address] SERVICES [facility] [place], [place] documented in this encounter Visit Diagnoses Not on filedocumented in this encounter Care Teams Inclinometer Tester Relationship Specialty Start Date End Date Percy Roche DO PCP - General 03/08/19 [address] [place] [address] documented as of this encounter
--- OUTSIDE RECORDS SUMMARY | 2022-04-02 13:06 | XMS_ITS | Encounter Summary ---
:1965 Author Organization [facility] Address [address] [place] [address] Care Team Providers Name Role Phone Percy Roche DO Primary Care Provider Encounter Details Date Type Department Care Team Description 01/23/2020 Travel Social History Tobacco Use Types Packs/Day Years [...] on filedocumented in this encounter Care Teams Dial Refinisher Relationship Specialty Start Date End Date Percy Roche DO PCP - General 03/08/19 [address] [place] [address] documented as of this encounter
--- OUTSIDE RECORDS SUMMARY | 2022-04-02 13:06 | XMS_ITS | Continuity of Care Document ---
:[address] [facility] Address [address] [place] [address] Care Team Providers Name Role Phone Percy Roche Primary Care Physician [facility] - 03/17/22 [facility] [address] [place] [address] Discharge Disposition: Home or Self Care Attending Physician: Rox Clancy NP Admitting Physician: Rox Clancy NP Referring Physician: Rox Clancy RESIDENTIAL SUPERVISOR Allergies, Adverse Reactions, Alerts Substance Reaction Severity Status meperidine Unknown Active aspirin Unknown Active cyclobenzaprine Unknown Active Demerol Unknown Active diphenhydrAMINE Unknown Active Immunizations Given and Recorded Vaccine Date Status Refusal Reason zoster vaccine, inactivated1 04/28/21 Recorded zoster vaccine, inactivated2 01/06/21 Recorded tetanus-diphth toxoids (Td) adult/adol3 01/06/21 Recorded SARS-CoV-2 (COVID-19) mRNA-1273 vaccine 09/22/20 Recorded SARS-CoV-2 (COVID-19) mRNA-1273 vaccine 08/25/20 Recorded influenza virus vaccine, inactivated 03/31/11 Recorded influenza virus vaccine, inactivated 09/09/10 Recorded tetanus/diphth/pertuss (Tdap) adult/adol 09/09/10 Recorde d 1Result Comment: Validated by RN RESIDENTIAL SUPERVISOR. Patient tolerated well. Pressure bandage a2 Result Comment: pt. tolerated vaccine well; diluent Lot# [id number] Comment: pt. tolerated vaccine well Medications erythromycin 0.5% ophthalmic ointment 1 louis, Eye-Both, TID, APPLY 1 CM RIBBON INTO THE LOWER CONJUNCTIVAL SAC(S) IN THE AFFECTED EYE(S) BYOPHTHALMIC ROUTE 3 TIMES PER DAY, 0 Refill(s) Start Date: 12/31/21 Status: Orderedmagnesium gluconate 250 mg oral tablet 500 mg 2 tab, Oral, BID, may substitute with magnesium gluconate 500mg 1 tab bid x 90 days at 180 tabs x 3 refills, # 360 tab, 3 Refill(s), Pharmacy: [id number] Start Date: 03/06/22 Stop Date: 03/01/23 Status: Orderedsertraline 100 mg oral tablet 150 mg = 1.5 tab, Oral, Daily, 0 Refill(s) Start Date: 11/18/21 Status: OrderedtraMADol 50 mg oral tablet 50 mg = 1 tab, Oral, every 12 hr, PRN as needed for pain, # 56 tab, 0 Refill(s), Pharmacy: [facility] Start Date: 03/10/22 Status: OrderedtraZODone 50 mg oral tablet 50 mg = 1 tab, Oral, every night at bedtime, 0 Refill(s) Start Date: 11/18/21 Status: Orderedtriamcinolone 0.1% topical cream 1 louis, Topical, BID, # 80 g, 3 Refill(s), Pharmacy: [id number] Start Date: 12/09/21 Status: Ordered Problem [...] Knee pain Confirmed Active Obesity Confirmed Active Obstructive sleep Confirmed Active apnea Plantar fascial Confirmed Active fibromatosis Sciatica Confirmed Active Snoring Confirmed Active Procedures Procedure Date Related Diagnosis Body Site Status Carpal tunnel release1 08/07/21 Compl eted Cholecystectomy 01/03/96 Completed 1Right and Left at [facility] Results Laboratory List Name Date Ferritin 03/17/22 TSH w/ Rflx to Free T4 03/17/22 Free T4 03/17/22 Most recent to oldest [Reference Range]: 1 T4 Free [0.76-1.46 ng/dL] 0.89 ng/dL (03/17/22 3:33 PM) Ferritin Level [8-252 ng/mL] 98 ng/mL (03/17/22 3:33 PM) TSH [0.358-3.740 mcIntlUnit/mL] 4.560 mcIntlUnit/mL *HI* (03/17/22 3:33 PM) Social History Social History Type Response Tobacco Former tobacco user Tobacco Use:. Sex Female Patient Care team information PersonnelName: Percy Roche DO Address: Address: MD Primary Care [address]
--- OUTSIDE RECORDS SUMMARY | 2022-04-02 13:06 | XMS_ITS | Encounter Summary ---
:1965 Author Organization [facility] Address [address] [place] [address] Care Team Providers Name Role Phone Percy Roche DO Primary Care Provider Encounter Details Date Type Department Care Team Description 01/23/2020 Anesthesia Event [facility] OR Graciela Busby MD [address] [facility], Level 2 [place] [address] [place] [address] Efrem Prieto MD [address] [place], [place] [id number] [place], [place] [address] Anesthesia Record Procedure Summary Procedure Name Responsible Anesthesia Start Anesthesia Stop Anesthesiologist Time Time left debridement / Graciela Busby MD 01/23/20 0730 01/23/20 09 50 repair achilles, bone spur removal, resection haglunds, possible flexur hallux longus transfer for achilles reconstruction, removal ankle lipoma (Left: Ankle) Events Date Time Event Comment 01/23/2020 0730 An Start The patient was re-evaluated immediately before moderate or deep sedation use, before anesthesia induction, or be fore the anesthesia procedure. 0730 An Start Data 0745 An Induction The patient was reevaluated immediately before moderate or deep sedation use and before anesthesia induction. 0750 An Intubation 0752 Anesthesia Ready 0809 An Tourn Inflated Tourniquet Inf lated - Location = left leg, Pressure = 250 mmHg 0908 An Tourn Deflated Tourniquet Def lated - Duration = 58 minutes 0942 An Extubation 0945 an stop data 0949 Handoff to RN I completed my h andoff to the receiving nurse during which we: 1. Identified the patient 2. Identified the r esponsible provider 3. Reviewed the pertinent medica l history 4. Discussed the surgical course 5. Review ed intra-op anesthesia management and issues durin g anesthesia 6. Set expectations for post-procedu re period 7. Allowed opportunity for questions an d acknowledgement of understanding. 0950 An Stop Name Total fentanyl citrate (PF) injection 100 mcg HYDROmorphone vial 2 mg/mL 0.6 mg lidocaine 2% (PF) injection glass vial 100 mg ketAMINE 5 mL prefilled syringe 20 mg midazolam 1 mg/mL 2 mL vial 2 mg ondansetron (PF) (ZOFRAN) injection 4 mg phenylephrine pre-filled syringe 100 mcg propOFol (DIPRIVAN) injection 200 mg rocuronium 10 mg/mL vial 60 mg ceFAZolin (ANCEF) syringe 2 g 2 g ropivacaine 5 mg/mL vial 20 mL lactated ringers (LR) infusion 900 mL Agents Name Insp Sevoflurane Exp Sevoflurane O2 N2O Air Blood No blood administrations on file. Lines, Drains, and Airways Type Details Placement Removal Peripheral IV 04/20/19; 2123; B George 04/20/192123 by Introcan; Left, Anterior, Horacio Matos, Medial, Distal; Forearm; RN Inserted by RN; 1; None; 3.15% Chlorhexidine with IPA Wound 01/23/20; Incision; Left, 01/23/20 0000 by Posterior; Ankle Giselle Ge, (achilles); achilles RN repair, bone spur removal; N; Full thickness Nerve Block (must 01/23/20; 1147 (created 01/23/20 1147 by document CSMTs and via procedure Rey, urinary function) documentation); Left MD Alejandra Peripheral IV 20; Right; Hand; In OR by 01/23/20 0857 by 01/22 1139 by MD; 1; (alcohol swab); Sonia Michael, 01/23/20; 1139; Therapy RN completed Peripheral IV 01/23/20; 0713; 20; 1.25; 01/23/20 0713 by 01/22 1139 by Siri George Introcan; Left, Nancy Woodward, LOUANN cheng, Sonia, Posterior; Hand; Inserted RN by RN; 1; None; 3.15% Chlorhexidine with IPA; 01/23/20; 1139; Therapy completed Non-Surgical Airway 01/23/20; 08 (created 01/23/20 08 by 01/03 0942 by via procedure Efrem Prieto Migliazzo, Jo seph, documentation); 01/23/20; MD ANDRES 09 documented in this encounter Social History Tobacco [...] making decisions? documented as of this encounter OR Notes Anesthesia Procedure Notes - Alejandra Le MD - 01/23/2020 1147 EDT Associated Order(s): Peripheral Block Peripheral Block Patient location during procedure: post-op Staffing Performed: resident/PRODUCTION SUPERVISOR OFF SHIFT/AA Anesthesiologist: Tim Johnson MD Resident/PRODUCTION SUPERVISOR OFF SHIFT: Alejandra Le MD Preanesthetic Checklist Completed: patient identified, IV checked, risks and benefits discussed, surgical consent, monitors and equipment checked, pre-op evaluation and timeout performed Peripheral Block Patient position: supine Prep: ChloraPrep Patient monitoring: heart rate, continuous pulse ox and BP cuff Block type: popliteal Laterality: left Injection technique: single-shot Guidance: ultrasound guided Needle Needle length: 80 mm Needle localization: ultrasound guidance Test dose: negative Assessment Injection assessment: negative aspiration for heme, no paresthesia on injection, incremental injection and local visualized surrounding nerve on ultrasound Heart rate change: no Slow fractionated injection: yes Ultrasound Equipment Machine used: Energy Excelerator SII ([facility]) sterile probe cover Probe did NOT contact body fluids/broken skin. Standard cleaning with recommended disinfectant Reason for block: at surgeon's request, for post-op pain management Anesthesia Postprocedure Evaluation - Efrem Prieto MD - 01/23/2020 0950 EDT Patient: Rox Cervantes Vital signs were reviewed with the recovery nurse. Complete vitals history is available in the Epic flowsheets. Vitals Value Taken Time BP 132/72 01/23/20 0950 Temp 36.6 01/23/20 0950 Resp 12 01/23/20 0949 Pulse From Oximetry 79 BPM 01/23/20 0949 SpO2 98 % 01/23/20 0949 Vitals shown include unvalidated device data. Last Pain Score - Numeric Pain Level (Scale 1-10): 7 Type of Anesthesia - regional Anesthesia Post Evaluation Post-procedure vitals reviewed and are stable. Level of consciousness: awake Temperature status: normothermia and patient returned to pre-procedure baseline Respiratory status: airway patent and stable Cardiovascular status: stable Hydration status: adequate Nausea/Vomiting: none Pain management: adequate Post-Op Assessment: patient tolerated procedure well with no complications Patient participation: able to participate Disposition: outpatient/home Anesthesia Complications: No apparent anesthesia complications Anesthesia Procedure Notes - Efrem Prieto MD - 01/23/2020 0805 EDT Associated Order(s): Airway Airway Date/Time: 01/23/2020 7:50 Urgency: elective General Information and Staff Patient location during procedure: OR Anesthesiologist: Graciela Busby MD Resident/PRODUCTION SUPERVISOR OFF SHIFT: Efrem Prieto MD Performed: resident/PRODUCTION SUPERVISOR OFF SHIFT/AA Indications and Patient Condition Indications for airway management: anesthesia Sedation level: GA Preoxygenated: yes Patient position: sniffing Ventilation assessment: 2 - Oral airway inserted Final Airway Details Final airway type: endotracheal airway Successful airway: ETT Cuffed: yes Successful intubation technique: direct laryngoscopy Facilitating devices/methods: intubating stylet Endotracheal tube insertion site: oral Blade: Mack Blade size: #3 ETT size (mm): 7.0 Cormack-Lehane Classification: grade I - full view of glottis Placement verified by: chest auscultation and capnometry Measured from: gums ETT to gums (cm): 22 Number of attempts at approach: 1 Anesthesia Preprocedure Evaluation - Efrem Prieto MD - 01/23/2020 0713 EDT Anesthesia Preprocedure Evaluation Patient Medical History, including Anesthesia History reviewed. Chart and Nursing Notes reviewed, including NPO status and Medication History. Additional ROS/History Findings: Allergies Allergen Reactions ??? Aspirin ??? Benadryl [Diphenhydramine Hcl] ??? Flexeril [Cyclobenzaprine] Review of Systems Constitutional: Negative. Negative for chills and fever. Respiratory: Negative for cough, sputum production and shortness of breath. Cardiovascular: Negative for chest pain. Gastrointestinal: Negative for heartburn, nausea and vomiting. Neurological: Negative. Psychiatric/Behavioral: Positive for depression. Past Medical History: Diagnosis Date ??? Achilles tendinitis bilat ??? 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 Little's deformity bilat ??? History of general anesthesia w/o issue ??? Pain feet and knees Relevant Problems No relevant active problems Physical Exam Airway Mallampati: II TM distance: <3 FB Neck ROM: full Cardiovascular - normal exam Rhythm: regular Rate: normal Dental Pulmonary - normal exam Abdominal Anesthesia Plan ASA 3 Anesthesia Type - regional, to include intravenous induction. - via popliteal block Anesthesia plan and risks discussed. Informed consent obtained from patient. Specific risks discussed were dental injury, nausea, vomiting and nerve damage. PAT Note (Notes from 12/24/19 through 01/23/20) No notes of this type exist for this encounter. documented in this encounter Miscellaneous Notes Addendum Note - Alejandra Le MD - 01/23/2020 1147 EDT Addendum created 01/23/20 1147 by Alejandra Le MD Child order released for a procedure order, Clinical Note Signed, Intraprocedure Blocks edited, Intraprocedure Meds edited, LDA created via procedure documentation Addendum Note - Tim Johnson MD - 01/23/2020 1139 EDT Addendum created 01/23/20 1139 by Tim Johnson MD Attestation recorded in Intraprocedure, Intraprocedure Attestations filed Addendum Note - Alejandra Le MD - 01/23/2020 1049 EDT Addendum created 01/23/20 1049 by Alejandra Le MD Order list changed documented in this encounter Plan of Treatment Not on filedocumented as of this encounter Procedures Procedure Name Priority Date/Time Associated Comments Diagnosis ANESTHESIA Routine 01/23/2020 11:47 Results for this PERIPHERAL BLOCK EDT procedure a re in the results section. ANESTHESIA Routine 01/23/2020 8:05 EDT Results for this INTUBATION procedure are i n the results section. documented in this encounter Results Peripheral Block (01/23/2020 11:47 EDT) Narrative Alejandra Le MD - 01/23/2020 11:47 EDT Alejandra Le MD ? 01/23/2020 11:47 Peripheral Block Patient location during procedure: post- op Staffing Performed: resident/PRODUCTION SUPERVISOR OFF SHIFT/AA Anesthesiologist: Tim Johnson MD Resident/PRODUCTION SUPERVISOR OFF SHIFT: Alejandra Le M D Preanesthetic Checklist Completed: patient identified, IV checke d, risks and benefits discussed, surgical consent, monitors and equipment checked, pre-op evaluation and timeout performed Peripheral Block Patient position: supine Prep: ChloraPrep Patient monitoring: heart rate, continuo us pulse ox and BP cuff Block type: popliteal Laterality: left Injection technique: single-shot Guidance: ultrasound guided Needle Needle length: 80 mm Needle localization: ultrasound guidance Test dose: negative Assessment Injection assessment: negative aspiratio n for heme, no paresthesia on injection, incremental injection and loc al visualized surrounding nerve on ultrasound Heart rate change: no Slow fractionated injection: yes Ultrasound Equipment Machine used: ChupaMobileI ([facility]) steri le probe cover Probe did NOT contact body fluids/broken skin. Standar d cleaning with recommended disinfectant Reason for block: at surgeon's request, for post-op pain management Graciela Busby MD ANESTHESIA ORDERABLES MS AN ELECTIVE ENDOTRACHEAL AIRWAY (01/23/2020 8:05 EDT) Narrative Efrem Prieto MD - 01/23/2020 8:05 EDT Efrem Prieto MD ? 01/23/2020 ??8:06 Airway Date/Time: 01/23/2020 7:50 Urgency: elective General Information and Staff Patient location during procedure: OR Anesthesiologist: Graciela Busby MD Resident/PRODUCTION SUPERVISOR OFF SHIFT: Efrem Prieto MD Performed: resident/PRODUCTION SUPERVISOR OFF SHIFT/AA Indications and Patient Condition Indications for airway management: anest hesia Sedation level: GA Preoxygenated: yes Patient position: sniffing Ventilation assessment: 2 - Oral airway inserted Final Airway Details Final airway type: endotracheal airway Successful airway: ETT Cuffed: yes Successful intubation technique: direct laryngoscopy Facilitating devices/methods: intubating stylet Endotracheal tube insertion site: oral Blade: Mack Blade size: #3 ETT size (mm): 7.0 Cormack-Lehane Classification: grade I - full view of glottis Placement verified by: chest auscultatio n and capnometry Measured from: gums ETT to gums (cm): 22 Number of attempts at approach: 1 Graciela Busby MD ANESTHESIA ORDERABLES documented in this encounter Visit Diagnoses Not on filedocumented in this encounter Administered Medications Inactive Administered Medications - up to 3 most recent administrations Medication Order MAR Action Action Date Dose Rate Site ceFAZolin (ANCEF) syringe 2 g Given 01/23/2020 7:52 EDT 2 g 2 g, intravenous, Administer over 10 Minutes, PRE-OP ONCE, 1 dose, On 01/23/20 at 0745, Routine, Preprocedure fentaNYL citrate (PF) injection Given 01/23/2020 7:45 EDT 100 mcg PRN, Starting on 01/23/20 at 0745, Until 01/23/20 at 0909, Routine, Anesthesia Intraprocedure HYDROmorphone (DILAUDUD) 2 mg/mL injecti on Given 01/23/2020 8:12 EDT 0.6 mg PRN, Starting on 01/23/20 at 0812, Until 01/23/20 at 0908, Routine, Anesthesia Intraprocedure ketAMINE in NaCl, iso-osmotic (KETALAR) 50 mg/5 Given 2019 7:45 EDT 20 mg mL (10 mg/mL) IV injection PRN, Starting on 01/23/20 at 0745, Until 01/23/20 at 0950, Routine, Anesthesia Intraprocedure lactated ringers (LR) infusion Continued by Anesthesia 01/23/2020 8:08 EDT at 25 mL/hr, intravenous, CONTINUOUS, Starting on 01/23/20 at 0700, Until 04/06/20 at 1755, Routine, Preprocedure New Bag 01/23/2020 7:15 EDT 25 mL/hr lidocaine (PF) 20 mg/mL (2 %) injection Given 01/23/2020 7:45 EDT 100 mg PRN, Starting on 01/23/20 at 0745, Until 01/23/20 at 0950, Routine, Anesthesia Intraprocedure midazolam (PF) (VERSED) injection Given 01/23/2020 7:31 EDT 2 mg PRN, Starting on 01/23/20 at 0731, Until 01/23/20 at 0950, Routine, Anesthesia Intraprocedure ondansetron (PF) (ZOFRAN) injection Given 01/23/2020 9:21 EDT 4 mg PRN, Starting on Wed01/23/20 at 0921, Until Wed01/23/20 at 0950, Routine, Anesthesia Intraprocedure phenylephrine HCl in 0.9% NaCl injection Given 01/23/2020 8:36 EDT 100 mcg PRN, Starting on Wed01/23/20 at 0836, Until Wed01/23/20 at 0950, Routine, Anesthesia Intraprocedure propOFol (DIPRIVAN) injection Given 01/23/2020 7:45 EDT 200 mg PRN, Starting on Wed01/23/20 at 0745, Until Wed01/23/20 at 0950, Routine, Anesthesia Intraprocedure rocuronium (ZEMURON) injection Given 01/23/2020 7:45 EDT 60 mg PRN, Starting on Wed01/23/20 at 0745, Until Wed01/23/20 at 0950, Routine, Anesthesia Intraprocedure ropivacaine (PF) (NAROPIN) 5 mg/mL (0.5 %) Given 01/23/2020 11:3 8 EDT 20 mL injection PRN, Starting on Wed01/23/20 at 1138, Until Wed01/23/20 at 1146, Routine, Anesthesia Intraprocedure documented in this encounter Care Teams Electrical Manager Relationship Specialty Start Date End Date Percy Roche DO PCP - General 03/08/[address] [place] [id number] documented as of this encounter
--- OUTSIDE RECORDS SUMMARY | 2022-04-02 13:06 | XMS_ITS | Encounter Summary ---
:1965 Author Organization [facility] Address [address] [place] [address] Care Team Providers Name Role Phone Percy Roche DO Primary Care Provider Reason for Visit Reason Onset Date Comments Pre-op Exam 01/19/2020 Encounter Details Date Type Department Care Team Description 01/19/2020 Prep for Procedure [facility] - Ti beatris ANDRES [address] [place], [place] [address] [place] [address] (Wo rk) Social History Tobacco Use [...] on filedocumented in this encounter Care Teams Parts Counterperson Relationship Specialty Start Date End Date Percy Roche DO PCP - General 03/08/[address] [place] [id number] documented as of this encounter
--- OUTSIDE RECORDS SUMMARY | 2022-04-02 13:06 | XMS_ITS | Encounter Summary ---
:[address] [facility] Address [address] [place] [address] Care Team Providers Name Role Phone Percy Roche DO Primary Care Provider Reason for Visit Reason Comments Post-OP Follow Up Encounter Details Date Type Department Care Team Description 02/05/2020 [facility] Slava Remy S/P Achilles tendon repair (Primary Dx); Foot [facility] Ankle Program MD Leighann Calcific Achilles tendinitis of both low er extremities; - [address] Little's deformity, bilateral [address] [place] [facility] [phone] Social History Tobacco Use Types Packs/Day Years [...] encounter Progress Notes Slava Remy MD - 02/05/2020 0800 EDT Diagnosis: ICD-10-CM ICD-9-CM 1. S/P Achilles tendon repair Z98.890 V45.89 ACHILLES WALKING BOOT- PNEUMATIC (L4360) 2. 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 Roche She is now 2 weeks post left Achilles debridement with reattachment, and Little's resection and lipoma resection. The patient denies fever, wound drainage, increasing redness, pus, increasing pain, increasing swelling. Post op problems reported: none. Current immobilization: short-leg splint. Pain Vitals: Pain Location: Ankle Sandhu-Wiley Pain Rating (Scale 0-10): Hurts little more Numeric Pain Level (Scale 1-10): 4 Pain in another site? : No Pain Quality: Aching, Sore Pain Duration: Intermittent Pain Aggravating Factors: Activity, Movement Facility-Administered Medications Prior to Visit Medication Dose [...] ??? lactated ringers (LR) infusion intravenous CONTINUOUS Grondin, Radha Graves MD Stopped at 01/23/20 0949 ??? lactated [...] Objective: General : alert, no distress Gait: Knee walker, ambulatory aid: short-leg splint. Neurosensory: decreased over the lateral side of the incision Vascular: intact Incision: healing well, no significant drainage, no dehiscence, no significant erythema Tenderness: left: mild Swelling: left: mild ROM: left - ankle in PF position Imaging: none Assessment: Status post left Achilles debridement with reattachment, and Little's resection and lipoma resection. Doing well postoperatively. Plan: ICD-10-CM ICD-9-CM 1. S/P Achilles tendon repair Z98.890 V45.89 ACHILLES WALKING BOOT- PNEUMATIC (L4360) 2. 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 Achilles Walking Boot- Pneumatic (L4360) Immobilization: Achilles walking boot Activities: No impact loading activities. Medications: none Imaging at next visit: none Follow up: Return in about 4 weeks (around 03/04/2020). Cc: Referring Provider - Dr. Roche PCP - Percy Roche documented in this encounter Plan of Treatment Not on filedocumented as of this encounter Visit Diagnoses Diagnosis S/P Achilles tendon repair - Primary Other postprocedural status Calcific Achilles tendinitis of both low er extremities Little's deformity, bilateral documented in this encounter Orders Equipment Count Last Ordered Date First Ordered Date ACHILLES WALKING BOOT- PNEUMATIC (L4360) 1 020 documented in this encounter Care Teams Java Developer Analyst Relationship Specialty Start Date End Date Percy Roche DO PCP - General 03/08/[address] [place] [id number] documented as of this encounter
--- OUTSIDE RECORDS SUMMARY | 2022-04-02 13:07 | XMS_ITS | Encounter Summary ---
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 Mass of left ankle Abigail Barahona, THERESA Procedures MR ANKLE W WO CONTRAST LEFT [address] [place] [phone] Referral ID Status Reason Start Expiration Visits Visits Date Date Requested Authorized [id number] Authorization Not 1 1 Required 9 Encounter Details Date Type Department Care Team Description 04/20/2019 [facility]counter [facility] Misa 's deformity, bilateral; Radiology MRI - Main Calcifi c Achilles tendinitis of both lower extremities; [place] Mass of left ankle [address], [place] [id number] Social History Tobacco Use Types Packs/Day Years Used Date Smoking Tobacco: Never Smokeless Tobacco: Never Sex Assigned at Date Recorded Not on [...] making decisions? documented as of this encounter Medications at Time of Discharge Medication Sig Dispensed Refills Start Date End Date sertraline (ZOLOFT) 100 mg Take 150 mg by mouth 0 tablet daily. traMADol (ULTRAM) 50 mg Take 50 mg by mouth. 0 tablet documented as of this encounter Discharge Disposition Disposition Code Departure Means Destination Home or Self Care documented in this encounter Plan of Treatment Not on filedocumented as of this encounter Procedures Procedure Name Priority Date/Time Associated Diagnosis Comme nts MR ANKLE W WO Routine 04/20/2019 22:31 Misa's deformity, Re sults for this CONTRAST LEFT EST bilateral procedure are in Calcific Achilles the result s tendinitis of both section. lower extremitie s Mass of left ankle documented in this encounter Results MR ANKLE W WO CONTRAST LEFT (04/20/2019 22:31 EST) Anatomical Region Laterality Modality Lower Extremities Left Magnetic Resonance Specimen (Source) Anatomical Collection Method Collection Time Re ceived Time Location / / Volume Laterality 04/21/2019 11:48 EST Impressions 04/21/2019 11:48 EST 1. 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 Correlating with the left ankle r adiographs chronic exuberant enthesopathic related changes are noted on the posterior aspect of the calcaneus and an area of irregular heterotopic ossification is also noted at the Achilles tendon tear site. 2. Findings compatible with Misa's sy ndrome a clinical diagnosis, as described above. Please correlate. Including an irregular osseous excrescence projecting from the superior aspect of the posterior calcaneus, consistent with a Misa's deformity. In addition, there are moderately prominent findings of retrocalcaneal bursitis and mild findings of retro-Achilles bursitis as well. 3. A lateral skin marker has been placed at the site of the reportedly clinically palpable lump. Underlying the skin marker is a small area of mild thickening with decreased T1 and increased T2 signal s howing mild enhancement, nonspecific. Th is could represent injury, inflammation or other infiltrative process. Please correlate. Particularly if there is concern for a discrete palpable abnormality adam mmend performing high resolution ultraso und imaging for more complete assessment. This occurs in a background of bimalleolar edema without enhancement. Anterior to the level of the lateral skin marker t here is focal prominence of the lateral subcutaneous fat which could represent a localized area of subcutaneous lipomatosis or a nonencapsulated lipoma in the subcutaneous fat. 4. Sequela from remote lateral ankle lig ament complex injury including slightly attenuated and lax appearance of the anterior talofibular ligament and chronic partial tearing with thinning of the calcaneofibular ligament. 5. Mild residual changes from prior delt oid ligamentous injury. 6. At least moderate degenerative change s visualized at the partially evaluated Lisfranc articulation. The main component of the Lisfranc ligament shows chronic low signal and irregularity consistent wi th remote injury that has healed with sc arring. This can be correlated clinically and with weightbearing radiographs of the foot. 7. Small chronic appearing osteochondral lesion on the medial talar dome occurring in a background of mild degenerative changes at the tibiotalar joint. There are mostly mild degenerative changes visual ized at the subtalar joints and Chopart joints. Mild to moderate degenerative changes evident at the navicular-cuneiform articulation. 8. Minimal to small size ankle and subta lar joint effusions with associated synovitis. 9. Findings compatible with minimal acut e on moderate chronic chronic changes of proximal plantar fasciitis, a clinical diagnosis. A chronic appearing moderately prominent plantar calcaneal enthesophyte is noted as well. 10. Small os trigonum with superimposed degenerative changes noted at the synchondrosis and small amount of surrounding synovitis. 11. Additional findings as above. . Narrative 04/21/2019 11:48 EST MR ANKLE W WO CONTRAST LEFT ??04/20/2019 9:40 PM Clinical History/Comments: soft tissue mass lateral aspect of left ankle, significant enthesopathy noted at the insertion site of the Achilles tendon, misa's deformity, evaluate for surgery; soft tissue mass lateral aspect of left ankle, significant enthesopathy not ed at the insertion site of the Achilles tendon, misa's deformity, evaluate for surgery Comparison: Left ankle radiographs on 2018 Technique: Routine multiplanar and multi sequence MR imaging of the left ankle is performed. Intravenous contrast was administered. Findings: A lateral skin marker at the site of the reportedly clinically palpable lump overlies the retromalleolar portion of the peroneal tendons. There is a small area of mild thickening with decreased T1 and i ncreased T2 signal showing mild enhancem ent in the lateral subcutaneous soft tissues underlying the region of the skin marker. This occurs in a background of bimalleolar edema without enhancement. Anter ior to the level of the lateral skin mar ker there is focal prominence of the lateral subcutaneous fat which could represent a localized area of subcutaneous lipomatosis or a nonencapsulated lipoma in the subcutaneous fat. The distal portion of the Achilles tendo n demonstrates marked thickening consistent with severe insertional tendinosis. In addition, there are vertically oriented, T2 hyperintense striations within the distal fibers of the Achilles, consisten t with mucoid tendinopathy. Also with superimposed focal mainly interstitial partial tear of the Achilles tendon in the region of the distal insertion (axial 21, sagittal 16-17). Correlating with the le ft ankle radiographs an area of irregular heterotopic ossification is noted at the Achilles tendon tear site. In addition, there are findings of retro calcaneal bursitis, with fluid and synovial proliferative changes with enhancement distending bursal space. There is enhancement and inflammatory thickening of th e retro-Achilles bursa, without a sizabl e retro-Achilles intrabursal fluid component. As seen on comparison radiographs, chron ic exuberant enthesopathic related changes are noted on the posterior aspect of the calcaneus and an irregular osseous excrescence projects from the superior aspe ct of the posterior calcaneus, consisten t with a Misa's deformity. The peroneal brevis and longus tendons s how mild tendinosis though no discrete tear is identified. The visualized portions of the medial fl exor tendons including the posterior tibial, the flexor digitorum longus and the flexor hallucis longus tendons are intact. The visualized portions of the anterior extensor tendons including the anterior tibial, extensor hallucis longus, and extensor digitorum longus tendons are intact. The distal tibiofibular syndesmotic liga ment complex including the anterior inferior tibial-fibular ligament and posterior inferior tibial-fibular ligament is intact. Evaluation of the lateral ankle ligament complex structures shows slightly attenuated and lax appearance of the anterior talofibular ligament consistent with sequela from remote injury. The calcaneofibu lar ligament shows chronic partial tear with attenuation. The posterior talofibular ligament has a more normal appearance. The superficial and deep components of t he deltoid ligament complex show signal heterogeneity consistent with mild residual sequela from prior injury. The plantar calcaneal-navicular (spring) ligament complex is intact. The Lisfranc ligament shows chronic low signal and irregularity consistent with remote injury that has healed with scarring. There is mild to moderate thickening of the proximal portion of the central cord of the plantar aponeurosis in the region of its calcaneal attachment, with small amount of perifascial edema and mild enh ancement. A chronic appearing moderately prominent plantar calcaneal enthesophyte is noted as well. The MRI signal within the sinus tarsi is within normal limits. There are minimal to small size ankle an d subtalar joint effusions with associated synovitis. There is a small chronic appearing osteo chondral lesion on the medial talar dome manifest mainly as focal cartilage thinning with underlying degenerative subchondral cyst formation and small amount of a ssociated enhancement. This occurs in a background of mild degenerative changes at the tibiotalar joint. There are mostly mild degenerative black es visualized at the subtalar joints and Chopart joints. Mild to moderate degenerative changes evident at the navicular- cuneiform joints with at least moderate de generative changes visualized at the par tially evaluated Lisfranc articulation. There is a small os trigonum with superi mposed degenerative changes noted at the synchondrosis between the os trigonum and dorsal talus, and small amount of surrounding synovitis. Procedure Note Scar Be MD - 04/21/2019Formatt ing of this note might be different from the original. MR ANKLE W WO CONTRAST LEFT 04/20/2019 9: 40 PM Clinical History/Comments: soft tissue mass lateral aspect of left ankle, significant enthesopathy noted at the insertion site of the Achilles tendon, misa's deformity, evaluate for surgery; soft tissue mass lateral aspect of left ankle, significant enthesopathy noted at the in sertion site of the Achilles tendon, misa's deformity, evaluate for surgery Comparison: Left ankle radiographs on 2018 Technique: Routine multiplanar and multi sequence MR imaging of the left ankle is performed. Intravenous contrast was administered. Findings: A lateral skin marker at the site of the reportedly clinically palpable lump overlies the retromalleolar portion of the peroneal tendons. There is a small area of mild thickening with decreased T1 and increased T2 signal showing mild enhancement in the lateral subcutaneous soft tissues underlying the region of the skin marker. This occurs in a background of bimalleolar edema without enhancement. Anterior to the level of the lateral skin marker there is focal promi nence of the lateral subcutaneous fat which could represent a localized area of subcutaneous lipomatosis or a nonencapsulated lipoma in the subcutaneous fat. The distal portion of the Achilles tendo n demonstrates marked thickening consistent with severe insertional tendinosis. In addition, there are vertically oriented, T2 hyperintense striations within the distal fibers of the Achilles, consistent with mucoid tendinopathy. Also with superimposed focal mainly interstitial partial tear of the Achilles tendon in the region of the distal insertion (axial 21, sagittal 16-17). Correlating with the left ankle radiogra phs an area of irregular heterotopic ossification is noted at the Achilles tendon tear site. In addition, there are findings of retro calcaneal bursitis, with fluid and synovial proliferative changes with enhancement distending bursal space. There is enhancement and inflammatory thickening of the retro-Achilles bursa, without a sizable retro-Achilles intrabursal fluid component. As seen on comparison radiographs, chron ic exuberant enthesopathic related changes are noted on the posterior aspect of the calcaneus and an irregular osseous excrescence projects from the superior aspect of the posterior calcaneus, consistent with a H aglund's deformity. The peroneal brevis and longus tendons s how mild tendinosis though no discrete tear is identified. The visualized portions of the medial fl exor tendons including the posterior tibial, the flexor digitorum longus and the flexor hallucis longus tendons are intact. The visualized portions of the anterior extensor tendons including the anterior tibial, extensor hallucis longus, and extensor digitorum longus tendons are intact. The distal tibiofibular syndesmotic liga ment complex including the anterior inferior tibial-fibular ligament and posterior inferior tibial-fibular ligament is intact. Evaluation of the lateral ankle ligament complex structures shows slightly attenuated and lax appearance of the anterior talofibular ligament consistent with sequela from remote injury. The calcaneofibular ligament shows chronic partial tear with attenuat ion. The posterior talofibular ligament has a more normal appearance. The superficial and deep components of t he deltoid ligament complex show signal heterogeneity consistent with mild residual sequela from prior injury. The plantar calcaneal-navicular (spring) ligament complex is intact. The Lisfranc ligament shows chronic low signal and irregularity consistent with remote injury that has healed with scarring. There is mild to moderate thickening of the proximal portion of the central cord of the plantar aponeurosis in the region of its calcaneal attachment, with small amount of perifascial edema and mild enhancement. A chronic appearing moderately prominent p lantar calcaneal enthesophyte is noted as well. The MRI signal within the sinus tarsi is within normal limits. There are minimal to small size ankle an d subtalar joint effusions with associated synovitis. There is a small chronic appearing osteo chondral lesion on the medial talar dome manifest mainly as focal cartilage thinning with underlying degenerative subchondral cyst formation and small amount of associated enhancement. This occurs in a background of mild degenerative changes at the tibiotalar joint. There are mostly mild degenerative black es visualized at the subtalar joints and Chopart joints. Mild to moderate degenerative changes evident at the navicular- cuneiform joints with at least moderate degenerative changes visualized at the partially eval uated Lisfranc articulation. There is a small os trigonum with superi mposed degenerative changes noted at the synchondrosis between the os trigonum and dorsal talus, and small amount of surrounding synovitis. IMPRESSION 1. Severe insertional Achilles tendinosi s with findings of mucoid tendinopathy and a superimposed focal mainly interstitial partial tear of the Achilles tendon in the region of the distal calcaneal insertion. Correlating with the left ankle radiogra phs chronic exuberant enthesopathic related changes are noted on the posterior aspect of the calcaneus and an area of irregular heterotopic ossification is also noted at the Achilles tendon tear site. 2. Findings compatible with Misa's sy ndrome a clinical diagnosis, as described above. Please correlate. Including an irregular osseous excrescence projecting from the superior aspect of the posterior calcaneus, consistent with a Misa's d eformity. In addition, there are moderately prominent findings of retrocalcaneal bursitis and mild findings of retro-Achilles bursitis as well. 3. A lateral skin marker has been placed at the site of the reportedly clinically palpable lump. Underlying the skin marker is a small area of mild thickening with decreased T1 and increased T2 signal showing mild enhancement, nonspecific. This could rep resent injury, inflammation or other infiltrative process. Please correlate. Particularly if there is concern for a discrete palpable abnormality recommend performing high resolution ultrasound imaging for more c omplete assessment. This occurs in a background of bimalleolar edema without enhancement. Anterior to the level of the lateral skin marker there is focal prominence of the lateral subcutaneous fat which could represent a localized area of subcutaneous lipomatosis or a nonencapsulated lipoma in the subcutaneous fat. 4. Sequela from remote lateral ankle lig ament complex injury including slightly attenuated and lax appearance of the anterior talofibular ligament and chronic partial tearing with thinning of the calcaneofibular ligament. 5. Mild residual changes from prior delt oid ligamentous injury. 6. At least moderate degenerative change s visualized at the partially evaluated Lisfranc articulation. The main component of the Lisfranc ligament shows chronic low signal and irregularity consistent with remote injury that has healed with scarring. Th is can be correlated clinically and with weightbearing radiographs of the foot. 7. Small chronic appearing osteochondral lesion on the medial talar dome occurring in a background of mild degenerative changes at the tibiotalar joint. There are mostly mild degenerative changes visualized at the subtalar joints and Chopart joints. Mild to moderate degenerative changes evident at the navicular-cuneiform articulation. 8. Minimal to small size ankle and subta lar joint effusions with associated synovitis. 9. Findings compatible with minimal acut e on moderate chronic chronic changes of proximal plantar fasciitis, a clinical diagnosis. A chronic appearing moderately prominent plantar calcaneal enthesophyte is noted as well. 10. Small os trigonum with superimposed degenerative changes noted at the synchondrosis and small amount of surrounding synovitis. 11. Additional findings as above. . Abigail Barahona NP [facility] MRI ORDERABLES documented in this encounter Visit Diagnoses Diagnosis Misa's deformity, bilateral Calcific Achilles tendinitis of both low er extremities Mass of left ankle documented in this encounter Administered Medications Inactive Administered Medications - up to 3 most recent administrations Medication Order MAR Action Action Date Dose Rate Site gadobutrol (GADAVIST PFS) solution Given 04/20/2019 22:02 EST 12 mmol solution 1-15 mmol 1-15 mmol (1-15 mL), intravenous, Once in imaging, 1 dose, Starting on Jasmyne 04/20/19 at 2202, Until Jasmyne 04/20/19 at 2202, Routine documented in this encounter Orders Medications Ordered That Might Not Have Count Last Ord ered Date First Ordered Date Been Administered gadobutrol (GADAVIST PFS) solution 1 04/20/2019 solution 1-15 mmol IV Count Last Ordered Date First Ordered Date IV REQUEST 1 04/20/2019 documented in this encounter Care Teams Sharepoint Analyst Relationship Specialty Start Date End Date Percy Roche DO PCP - General 03/08/19 [address] [place] [address] documented as of this encounter
--- OUTSIDE RECORDS SUMMARY | 2022-04-02 13:07 | XMS_ITS | Encounter Summary ---
:1965 Author Organization [facility] Address [address] [place] [address] Care Team Providers Name Role Phone Unavailable Primary Care Provider Unavailable Encounter Details Date Type Department Care Team Description 08/18/2005 Results Only [facility] - Tim Goodman MD conversion [address] [place] [id number] Social History Tobacco Use Types Packs/Day Years Used Date Smoking Tobacco: Never Assessed Sex Assigned at Date Recorded Not on file documented as of this encounter Plan of Treatment Not on filedocumented as of this encounter Procedures Procedure Name Priority Date/Time Associated Diagnosis Comme nts CYTOPATHOLOGY Routine 08/18/2005 0:00 EDT Results for this procedure are i n the results section . documented in this encounter Results CYTOPATHOLOGY (08/18/2005 0:00 EDT) Component Value Ref Test Analysis Performed At [facility] Method Time Signature Pathology CYTOPATHOLOGY REPORT PABLO Report: [facility] Reports generated via electronic interface contain original data; however they are lacking the format of the original report. Caution should be taken when reading/interpreting unformatte d reports. Name: ? ROX CERVANETS ? Accession #: ? [id number] : ? 1965 (Age: 39) ??F ?Collect Date: ? 08/18/2005 Location: ? [facility] ? Receive Date: ? 08/19/2005 Provider: ?TIM FAULKNER MD Copy to: ? Specimen/Source: ? ThinPrep Pap Test, Cervix/Endocervix, processed on [employer] Imaging System, with manual evaluation Last Menstrual Period: ? 07/27/05 Hormonal/Contraceptive Status: ? Tubal ligation Previous Gynecologic Pathology: ? ASC-US: RENETTA SHAMIR III: Benign cellular changes: 10/15 Treatment History: ? Cervical biopsy: LEEP: ? SPECIMEN ADEQUACY ? Satisfactory for Evaluation - transformation zone component present GENERAL CATEGORIZATION ? Negative for Intraepithelial Lesion or Malignancy INTERPRETATION ? Shift in jayme present suggestive of bacterial vagino sis. ? Document reviewed and electronically signed by: ? ANALY Sutherland(ASCP) ? Report Date: ??08/21/2005 08:30 End of Report Specimen (Source) Anatomical Location Collection Method / Collectio n Time Received Time / Laterality Volume 08/18/2005 08/19/2005 Tim Faulkner MD PATHOLOGY ORDERABLES Performing Organization Address City/State/ZIP Code Phon e Number [facility] [address] [place] [address] SERVICES [facility] [address] [place] [address] documented in this encounter Visit Diagnoses Not on filedocumented in this encounter
--- OUTSIDE RECORDS SUMMARY | 2022-04-02 13:07 | XMS_ITS | Encounter Summary ---
:1965 Author Organization [facility] Address [address] [place] [address] Care Team Providers Name Role Phone Unavailable Primary Care Provider Unavailable Encounter Details Date Type Department Care Team Description 03/03/2011 Results Only [facility]- PRISM Damian Medina MD [phone] [place] [address] Social History Tobacco Use Types Packs/Day Years Used Date Smoking Tobacco: Never Assessed Sex Assigned at Date Recorded Not on file documented as of this encounter Plan of Treatment Not on filedocumented as of this encounter Procedures Procedure Name Priority Date/Time Associated Diagnosis Comme nts PAP TEST- RESULT Routine 03/03/2011 0:00 EDT Resu lts for this ONLY procedure are i n the results section. documented in this encounter Results PAP TEST- RESULT ONLY (03/03/2011 0:00 EDT) Component Value Ref Test Analysis Performed At [facility] Method Time Signature Pathology CYTOPATHOLOGY REPORT PABLO Report: [facility] Reports generated via electronic interface contain original data; however they are lacking the format of the original report. Caution should be taken when reading/interpreting unformatte d reports. Name: ? ROX CERVANTES ? Accession #: ? [id number] ? : ? 1965 (Age: 45) ??F ?Collect Da te: ? 03/03/2011 ? Location: ? [facility] ? Receive Date: ? 03/04/2011 ? Provider: DAMIAN MEDINA MD Copy to: ALICE QUIGLEY-PAGE ANP ? Final Report SPECIMEN ADEQUACY ? Satisfactory for Evaluation - transformation zone component present GENERAL CATEGORIZATION ? Negative for Intraepithelial Lesion or Malignancy INTERPRETATION ? Shift in jayme present suggestive of bacterial vagino sis. Previous Gynecologic Pathology: ASC-US: pap 08/20/05 pap negative RENETTA: SHAMIR III: Treatment History: LEEP: Cervical biopsy: Specimen/Source: ??Pap Test, Cervix/Endocervix, ThinPr ep Imaging System with manual evaluation Document reviewed and electronically signed by: ? Holli Frost, ANALY(ASCP)(IAC) ? Report ??Date: 03/11/2011 16:38 HPV with Pap Test ? Date Ordered: ? 03/11/2011 ? Status: ?? Hilary d Out ?Date Complete: ? 03/16/2011 ? By: ??System Interface ? Date Reported: ? 03/16/2011 ? Interpretation RESULT: Negative for HPV types 16, 18, 31, 33, 35, 39, 45, 5 1, 52, 56, 58, 59, and 68. Comments Document reviewed and electronically signed by: ? System Interface ? Report date: 03/16/2011 By the signature above, the attending physician certifies th at he/she has personally conducted a gross and/or microscopic examin ation of the described specimens and rendered or confirmed the above diagnosis. End of Report Specimen (Source) Anatomical Location Collection Method / Collectio n Time Received Time / Laterality Volume 03/03/2011 03/04/2011 Damian Medina MD PATHOLOGY ORDERABLES Performing Organization Address City/State/ZIP Code Phon e Number [facility] [address] [place] [address] SERVICES [facility] [address] [place] [address] documented in this encounter Visit Diagnoses Not on filedocumented in this encounter
--- OUTSIDE RECORDS SUMMARY | 2022-04-02 13:07 | XMS_ITS | Encounter Summary ---
:1965 Author Organization [facility] [place] [address] Care Team Providers Name Role Phone Percy Roche DO Primary Care Provider Reason for Referral Consultation (Routine) - Closed Specialty Diagnoses / Procedures Referred By Contact Refer red To Contact General Surgery Diagnoses Morbid obesity Lucas Berger MD [facility] Gen Surgery 4l [facility] [place] [address] [place] [address] Fax: Referral ID Status Reason Start Date Expiration Date Visits V isits Requested Authorized [id number] Closed Consult, 01/08/2015 01/08/2016 3 3 Test & Treat Reason for Visit Reason Onset Date Comments Medication Refill 01/08/2015 Encounter Details Date Type Department Care Team Description 01/08/2015 Refill Pain Management at Lucas Degroot MD Morbid obesity [facility] [place] [address] PAIN CLINIC [phone] [place], [place] [address] (Wo rk) Social History Tobacco Use Types Packs/Day Years Used Date Smoking Tobacco: Never Assessed Sex Assigned at Date Recorded Not on file documented as of this encounter Plan of Treatment Scheduled Referrals Name Type Priority Associated Diagnoses Order S chedule Referral to Outpatient Referral Routine Morbid obesity Ordere d: Bariatric Surgery 01/08/2015 Program documented as of this encounter Visit Diagnoses Diagnosis Morbid obesity documented in this encounter Care Teams Dance Teacher Relationship Specialty Start Date End Date Percy Roche DO PCP - General 04/18/[address] [place] [phone] documented as of this encounter
--- OUTSIDE RECORDS SUMMARY | 2022-04-02 13:07 | XMS_ITS | Encounter Summary ---
:1965 Author Organization [facility] Address [address] [place] [address] Care Team Providers Name Role Phone Percy Roche DO Primary Care Provider Reason for Visit Reason Onset Date Comments Surgery Scheduling 08/02/2019 Encounter Details Date Type Department Care Team Description 08/02/2019 Telephone [facility] Foot & Braulio Remy, Surgery Scheduling Ankle Program - [address] [place], [place] [address] [place] [address] [phone] (Wo rk) Social History Tobacco Use [...] this encounter Miscellaneous Notes Telephone Encounter - Percy Hawkins LPN - 08/02/2019 1516 EDT The patient was contacted today regarding their upcoming surgery and have left a voice message. To reduce unnecessary exposure of patients and staff, we have cancelled Rox's surgery for 09/11 withDr Remy. It was communicated with the patient that given the uncertainty around how long the current COVID-19situation will last, we are unable to predict when we will be able to reschedule this surgery. We have added this patient to our reschedule list and will reach out to reschedule as soon as things stabilize in the community. The patient was encouraged to call the office if they have a change in symptoms and we will work them to ensure they receive the care needed. Any questions or concerns were addressed with the patient today. documented in this encounter Plan of Treatment Not on filedocumented as of this encounter Visit Diagnoses Not on filedocumented in this encounter Care Teams Manifold Builder Relationship Specialty Start Date End Date Percy Roche, PCP - General 03/08/[address] [place] [address] documented as of this encounter
--- OUTSIDE RECORDS SUMMARY | 2022-04-02 13:07 | XMS_ITS | Encounter Summary ---
:1965 Author Organization [facility] Address [address] [place] [address] Care Team Providers Name Role Phone Unavailable Primary Care Provider Unavailable Encounter Details Date Type Department Care Team Description 10/21/1999 Results Only [facility] - Tim Goodman MD conversion [address] [place] [address] Social History Tobacco Use Types Packs/Day Years Used Date Smoking Tobacco: Never Assessed Sex Assigned at Date Recorded Not on file documented as of this encounter Plan of Treatment Not on filedocumented as of this encounter Procedures Procedure Name Priority Date/Time Associated Diagnosis Comme [facility] SURGICAL PATHOLOGY Routine 10/21/1999 0:00 EDT Re sults for this procedure are i n the results section. documented in this encounter Results SURGICAL PATHOLOGY (10/21/1999 0:00 EDT) Component Value Ref Test Analysis Performed At [facility] Method Time Signature Pathology SURGICAL PATHOLOGY REPORT CEE THORNE Report: Reports generated via electronic interface contain jaqueline marroquin data; JOHN MARTELL however they are lacking the format of the original report. Caution should be taken when reading/interpreting unformatte d reports. Name: ? ROX CERVANTES ? Accession #: ? [id number] ? : ? 1965 (Age: 33) ??F ? Collect Date: ? 10/21/1999 ? Location: ? [facility] ? Receive Date: ? 10/22/1999 ? Provider: TIM FAULKNER MD Copy to: LISANDRO MEDINA MD ? Final Pathologic Diagnosis: ? Cervix, 10 o' clock, biopsy: - High grade squamous intraepithelial lesion (SHAMIR II). ??See comment. Comment: ? Deeper sections have been reviewed on this case. ??The dysplasia is best seen on the deeper levels.(Dr. Barker)/[facility] Document reviewed and electronically signed by: MICHAEL ASHLEY MD Report ??Date: 10/24/1999 16:27 By the signature above, the attending physician certifies th at he/she has personally conducted a gross and/or microscopic examin ation of the described specimens and rendered or confirmed the above diagnosis. Specimen(s) Received: ? Cx bx Clinical History: ? H/o abnormal pap; 08/22/99 ASCUS, RENETTA pap; LMP 09/29/99 Gross Description: ? Received in formalin labelled Kia and cervix at 10 o' clock is an irregularly shaped fragment of sales-pink soft tissue which measures 0.4 x 0.3 x 0.3 cm. ??Submitted entirely in one cassette. ??(Dr. Latosha reece)/ljn End of Report Specimen (Source) Anatomical Collection Method Collection Time Re ceived Time Location / / Volume Laterality 10/21/1999 10/22/1999 15:3 5 EDT Tim Faulkner MD PATHOLOGY ORDERABLES Performing Organization Address City/State/ZIP Code Phon e Number [facility] [address] [place] [address] SERVICES [facility] [address] [place] [address] documented in this encounter Visit Diagnoses Not on filedocumented in this encounter
--- OUTSIDE RECORDS SUMMARY | 2022-04-02 13:07 | XMS_ITS | Encounter Summary ---
:1965 Author Organization [facility] Address [address] [place] [address] Care Team Providers Name Role Phone Percy Roche DO Primary Care Provider Encounter Details Date Type Department Care Team Description 04/14/2019 Orders Only [facility] Luis Antonio Blackman, Interventional Radio logy Unit [address] [address] GLADIS MULLEN [phone] Social History Tobacco Use Types Packs/Day Years [...] on filedocumented in this encounter Care Teams Freight Conductor Relationship Specialty Start Date End Date Percy Roche DO PCP - General 03/08/[address] [place] [phone] documented as of this encounter
--- OUTSIDE RECORDS SUMMARY | 2022-04-02 13:07 | XMS_ITS | Encounter Summary ---
:1965 Author Organization [facility] Address [address] [place] [address] Care Team Providers Name Role Phone Percy Roche DO Primary Care Provider Reason for Visit Reason Onset Date Comments Appointment Related 04/06/2019 Encounter Details Date Type Department Care Team Description 04/06/2019 Telephone [facility] Foot Slava Remy, Appointment Related & Ankle Program - Ludin spear MD [address] [place], [place] [address] [place] [address] [phone] (Wo rk) Social History Tobacco Use [...] this encounter Miscellaneous Notes Telephone Encounter - Harris Oliva MA - 04/06/2019 0947 EST Left VM for Rox to notify of clinical cancellation on 05/04/19. Office number was left to call and reschedule. documented in this encounter Plan of Treatment Not on filedocumented as of this encounter Visit Diagnoses Not on filedocumented in this encounter Care Teams Police Captain Senior Relationship Specialty Start Date End Date Percy Roche DO PCP - General 03/08/[address] [place] [phone] documented as of this encounter
--- OUTSIDE RECORDS SUMMARY | 2022-04-02 13:07 | XMS_ITS | Encounter Summary ---
:1965 [place] [address] Care Team Providers Name Role Phone Percy Roche DO Primary Care Provider Encounter Details Date Type Department Care Team Description 03/21/2014 Orders Only Radiology Chani DavidPercy Madera DO [address] [address] [place] [address] [phone] Social History Tobacco Use Types Packs/Day Years Used Date Smoking Tobacco: Never Assessed Sex Assigned at Date Recorded Not on file documented as of this encounter Plan of Treatment Not on filedocumented as of this encounter Procedures Procedure Name Priority Date/Time Associated Diagnosis Comme nts FILM LIBRARY Routine 03/21/2014 10:36 AM Results for this STORAGE ONLY MR EST procedure ar e in SPINE the results section. documented in this encounter Results Film Library- Storage only MR Spine (03/21/2014 10:36 AM EST) Anatomical Region Laterality Modality Other Specimen (Source) Anatomical Collection Method Collection Time Re ceived Time Location / / Volume Laterality 03/21/2014 10:36 AM EST Narrative 04/18/2014 10:41 AM EST This is a Non-reportable exam Procedure Note DASH, UNSIGNED REPORT - 04/18/2014Formatt ing of this note might be different from the original. This is a Non-reportable exam Percy Roche DO IMG FILM LIBRARY ORDERABLES documented in this encounter Visit Diagnoses Not on filedocumented in this encounter Care Teams Vice President Process Relationship Specialty Start Date End Date Percy Roche DO PCP - General 04/18/14 [address] [place] [phone] documented as of this encounter
--- OUTSIDE RECORDS SUMMARY | 2022-04-02 13:07 | XMS_ITS | Encounter Summary ---
:1965 Author Organization [facility] Address [address] [place] [address] Care Team Providers Name Role Phone Percy Roche DO Primary Care Provider Encounter Details Date Type Department Care Team Description 01/16/2020 - Hospital Encounter [facility] No Show 01/17/[address] [facility] Main [place] Pre-Surgical Testing [address] [place] [address] Social History Tobacco Use Types [...] Sign Reading Time Taken Comments Blood Pressure - - Pulse - - Temperature - - Respiratory Rate - - Oxygen Saturation - - Inhaled Oxygen Concentration - - Weight 117 kg (258 lb) 01/16/2020 1049 EDT Height 152.4 cm (5') 01/16/2020 1049 EDT Body Mass Index 50.39 01/16/2020 1049 EDT documented in this encounter Functional Status [...] or Self Care documented in this encounter OR Notes Preprocedure Instructions - Sondra Knight RN - 01/16/2020 1030 EDT Rox Cervantes has been instructed as follows regarding medication administration for the day of the scheduled procedure. Date of Surgery: 01/23/20 Instructions for Taking Medications Day of Surgery Medication Sig Last Dose Hold DOS Take DOS sertraline (ZOLOFT) 100 mg tablet Take 150 mg by mouth daily. Yes traMADol (ULTRAM) 50 mg tablet Take 50 mg by mouth. Yes documented in this encounter Plan of Treatment Not on filedocumented as of this encounter Visit Diagnoses Not on filedocumented in this encounter Care Teams Will Call Clerk Relationship Specialty Start Date End Date Percy Roche DO PCP - General 03/08/[address] [place] [phone] documented as of this encounter
--- OUTSIDE RECORDS SUMMARY | 2022-04-02 13:07 | XMS_ITS | Encounter Summary ---
:1965 Author Organization [facility] Address [address] [place] [address] Care Team Providers Name Role Phone Percy Roche DO Primary Care Provider Reason for Visit Reason Onset Date Comments Other 10/18/2019 Reschedule sx Encounter Details Date Type Department Care Team Description 10/18/2019 Telephone [facility] Ramona Esquivel RN Other (R eschedule sx) Orthopedic Trauma - [address] [address] Social History Tobacco Use Types Packs/Day Years [...] this encounter Miscellaneous Notes Telephone Encounter - Ramona Esquivel RN - 10/18/2019 5593 EDT Called pt back after she called with interest in rescheduling her sx. 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 She would like a call when dates in November/december start to open up. She will be at the main campus. She will call back if she has changed her mind about 11.14.2019 which is our only available day for main or at [facility] documented in this encounter Plan of Treatment Not on filedocumented as of this encounter Visit Diagnoses Not on filedocumented in this encounter Care Teams Tank Storage Supervisor Relationship Specialty Start Date End Date Percy Roche DO PCP - General 03/08/19 [address] [place] [address] documented as of this encounter
--- OUTSIDE RECORDS SUMMARY | 2022-04-02 13:07 | XMS_ITS | Encounter Summary ---
:1965 Author Organization [facility] Address [address] [place] [address] Care Team Providers Name Role Phone Unavailable Primary Care Provider Unavailable Encounter Details Date Type Department Care Team Description 07/26/2001 Results Only [facility] - Stella Knight od, Chiqui Rodriguez, CUSTOM MOTORCYCLE PAINTER conversion [facility] [address] [place] [phone] (Wo rk) Social History Tobacco Use Types Packs/Day Years Used Date Smoking Tobacco: Never Assessed Sex Assigned at Date Recorded Not on file documented as of this encounter Plan of Treatment Not on filedocumented as of this encounter Procedures Procedure Name Priority Date/Time Associated Diagnosis Comme nts CYTOPATHOLOGY Routine 07/26/2001 0:00 EST Results for this procedure are i n the results section . documented in this encounter Results CYTOPATHOLOGY (07/26/2001 0:00 EST) Component Value Ref Test Analysis Performed At [facility] Time [facility] Pathology CYTOPATHOLOGY REPORT PABLO Report: [facility] Reports generated via electronic interface contain original data; however they are lacking the format of the original report. Caution should be taken when reading/interpreting unformatte d reports. Name: ? ROX CERVANTES ? Accession #: ? [id number] : ? 1965 (Age: 35) ??F ?Collect Date: ? 07/26/2001 Location: ? [facility] ? Receive Date: ? 07/27/2001 Provider: ?CHIQUI AGUILLON CUSTOM MOTORCYCLE PAINTER Copy to: ? Specimen/Source: ?ThinPrep Pap Test, Cervix/Endoce rvix Last Menstrual Period: ? 07/02/01 Previous Gynecologic Pathology: ? ASC-US: , RENETTA SHAMIR III: cx bx Benign cellular changes: 10/15 Treatment History: ? Cervical biopsy: SHAMIR III LEEP: no dysplasia ? SPECIMEN ADEQUACY ? Satisfactory for Evaluation - transformation zone component present GENERAL CATEGORIZATION ? Negative for Intraepithelial Lesion or Malignancy ? Document reviewed and electronically signed by: ? Holli Frost, CT(ASCP)(IAC) ? Report Date: ??08/01/2001 15:11 End of Report Specimen (Source) Anatomical Location Collection Method / Collectio n Time Received Time / Laterality Volume 07/26/2001 07/27/2001 Chiqui Aguillon CUSTOM MOTORCYCLE PAINTER PATHOLOGY ORDERABLES Performing Organization Address City/State/ZIP Code Phon e Number [facility] [address] [place] [address] SERVICES [facility] [address] [place] [address] documented in this encounter Visit Diagnoses Not on filedocumented in this encounter
--- OUTSIDE RECORDS SUMMARY | 2022-04-02 13:07 | XMS_ITS | Encounter Summary ---
:1965 Author Organization [facility] Address [address] [place] [address] Care Team Providers Name Role Phone Unavailable Primary Care Provider Unavailable Encounter Details Date Type Department Care Team Description 11/27/1999 Results Only [facility] - Cinthya Goodman MD conversion [address] [place] [address] Social History Tobacco Use Types Packs/Day Years Used Date Smoking Tobacco: Never Assessed Sex Assigned at Date Recorded Not on file documented as of this encounter Plan of Treatment Not on filedocumented as of this encounter Procedures Procedure Name Priority Date/Time Associated Diagnosis Comme [facility] SURGICAL PATHOLOGY Routine 11/27/1999 0:00 EDT Re sults for this procedure are i n the results section. documented in this encounter Results SURGICAL PATHOLOGY (11/27/1999 0:00 EDT) Component Value Ref Test Analysis Performed At [facility] Method Time Signature Pathology SURGICAL PATHOLOGY REPORT CEE THORNE Report: Reports generated via electronic interface contain jaqueline bourgeois; JOHN MARTELL however they are lacking the format of the original report. Caution should be taken when reading/interpreting unformatte d reports. Name: ? MELLISSA CERVANTES ? Accession #: ? [id number] ? : ? 1965 (Age: 34) ??F ? Collect Date: ? 11/27/1999 ? Location: ? [facility] ? Receive Date: ? 11/27/1999 ? Provider: CINTHYA FAULKNER MD Copy to: LISANDRO MEDINA MD ? Final Pathologic Diagnosis: ? Cervix, LEEP biopsy: 1. ?Transitiona l zone epithelium with chronic and focal acute cervicitis with reactive epithelial change. 2. ?No dysplasia identified. ??See comment. Comment: ? Deeper sections of th e entire LEEP biopsy have been examined. ??The previous cervical biopsy ([id number]) has also bee n reviewed and the high grade (SHAMIR II) squamous intraepithelial les ion present on the biopsy specimen confirmed. ??(Dr. Lujan)/[facility] Document reviewed and electronically signed by: MICHAEL ASHLEY MD Report ??Date: 12/02/1999 12:51 By the signature above, the attending physician certifies th at he/she has personally conducted a gross and/or microscopic examin ation of the described specimens and rendered or confirmed the above diagnosis. Specimen(s) Received: ? LEEP cervix Clinical History: ? pap ASCUS, RENETTA; cervix bx SHAMIR III Gross Description: ? Received in formalin labelled [place] and LEEP ce rvix are two fragments of a LEEP biopsy of cervix. ??The first is roughly circular and measures 1.5 x 1.1 cm, excis ed to a depth of 0.8 cm and has a smooth glistening pink to white mucosal ectoce rvical surface. ??The second fragment is irregularly shaped with no definitive mu cosal surface. ??It measures 1.8 x 1.5 x 0.6 cm and does appear to contain a por tion of endocervical canal. ??The first specimen is inked blue (endocervical mar gin) and black (remaining margin). ??This portion of cervix is serially sectioned radially and submitted en tirely as (A1) through (A5). ??The smaller fragment is black inked melissa g the discernible soft tissue resection margin and serially sectioned, radially through th e endocervical canal, and is submitted entirely as (A6) through (A8). ??(Dr Lawrence Lujan)/benoit End of Report Specimen (Source) Anatomical Collection Method Collection Time Re ceived Time Location / / Volume Laterality 11/27/1999 11/27/1999 15:4 6 EDT Cinthya Faulkner MD PATHOLOGY ORDERABLES Performing Organization Address City/State/ZIP Code Phon e Number [facility] [address] [place] [address] SERVICES [facility] [address] [place] [address] documented in this encounter Visit Diagnoses Not on filedocumented in this encounter
--- OUTSIDE RECORDS SUMMARY | 2022-04-02 13:07 | XMS_ITS | Encounter Summary ---
:1965 Author Organization [facility] Address [address] [place] [address] Care Team Providers Name Role Phone Percy Roche DO Primary Care Provider Reason for Visit Reason Onset Date Comments Other 10/13/2019 re-book surgery with MD Remy Encounter Details Date Type Department Care Team Description 10/13/2019 Telephone [facility] Jayshree Arellano RN Other (re-book [facility] Pediatric [address] [place] [address] surgery with Orthopedics - [address] [place] [address] Sandrita) [address] [place] [address] [place] [address] Social History Tobacco Use Types Packs/Day Years [...] this encounter Miscellaneous Notes Telephone Encounter - Jennifer Arellano RN - 10/13/2019 1009 EDT Left a message on Rox's voicemail (10/11/2019) explaining that we are re-booking surgeries for Dr. Remy. Asked her to call our office if she would like to re-book documented in this encounter Plan of Treatment Not on filedocumented as of this encounter Visit Diagnoses Not on filedocumented in this encounter Care Teams Fishing Line Winding Machine Operator Relationship Specialty Start Date End Date Percy Roche DO PCP - General 03/08/[address] [place] [phone] documented as of this encounter
--- OUTSIDE RECORDS SUMMARY | 2022-04-02 13:07 | XMS_ITS | Encounter Summary ---
:1965 Author Organization [facility] Address [address] [place] [address] Care Team Providers Name Role Phone Unavailable Primary Care Provider Unavailable Encounter Details Date Type Department Care Team Description 08/26/1999 Results Only [facility] - Stella Knight od, Chiqui Rodriguez, PROFESSIONAL ATHLETE conversion [facility] [address] [place] [phone] (Wo rk) Social History Tobacco Use Types Packs/Day Years Used Date Smoking Tobacco: Never Assessed Sex Assigned at Date Recorded Not on file documented as of this encounter Plan of Treatment Not on filedocumented as of this encounter Procedures Procedure Name Priority Date/Time Associated Diagnosis Comme nts CYTOPATHOLOGY Routine 08/26/1999 14:13 EDT Result s for this procedure are i n the results section . documented in this encounter Results CYTOPATHOLOGY (08/26/1999 14:13 EDT) Component Value Ref Test Analysis Performed At [facility] Method Time Signature Pathology CYTOPATHOLOGY REPORT PABLO Report: [facility] Reports generated via electronic interface contain original data; however they are lacking the format of the original report. Caution should be taken when reading/interpreting unformatte d reports. Name: ? ROX CERVANTES ? Accession #: ? [id number] : ? 1965 (Age: 33) ??F ?Collect Date: ? 08/26/1999 Location: ?Receive Date: ? 0 08/26/1999 Provider: ?CHIQUI CLARK PROFESSIONAL ATHLETE Copy to: ?CHIQUI CLARK PROFESSIONAL ATHLETE ? Specimen/Source: ?[employer] Officer [employer] Last Menstrual Period: ? GYNECOLOGIC ??CYTOPATHOLOGY ??RE PORT Name: JEANE,ROX ?FAH C : 1965 ?? 33Y F ?Client I D: ?? SS#: ? Clinician: CLARK PROFESSIONAL ATHLETE, CHIQUI ?? Location: [facility] ??Copy to: ?? Specimen: ?[employer] Officer [employer] ? Source: Cervix/Endocervix ?Collected: 08/22/99 ? Received: 08/26/1999 ?LMP: 07/30/99 ? Hormone Therapy: No ? : No ? Radiation Therapy: No ?? Post : No ?Chemotherapy: No ?IUD: No ? Prev Abnormal Pap: No ?? Clinical Hx: ?(Blank sánchez indicate information not provided on req uisition) SPECIMEN ADEQUACY: ? Satisfactory For Evaluation ?? GENERAL CATEGORIZATION: ? EPITHELIAL CELL ABNORMALITY ?? DESCRIPTIVE DIAGNOSIS: ? Atypical Squamous Cells Of Undetermined Significance (ASCUS), ? Cannot Rule Out Squamous Intraepithelial Lesion (RENETTA) ?? RECOMMENDATION: ? Recommend Clinical Correlation Or Further Evaluation, As ? Clinically Indicated ? Reviewed And Electronically Signed By: ? Marcel Hardwick M.D. ? Report Date: ?? 0 09/05/1999 [employer] Archived Tests - Final Diagnosis Text Field: Clinical History : ? Document reviewed and electronically signed by: ? Conversion ? Report Date: ??09/05/1999 00:00 End of Report Specimen Anatomical Collection Method Collection Time Receive d Time (Source) Location / / Volume Laterality 08/26/1999 14:13 08/26/1999 EDT 14:14 EDT Chiqui Aguillon PROFESSIONAL ATHLETE PATHOLOGY ORDERABLES Performing Organization Address City/State/ZIP Code Phon e Number [facility] [address] [place] [address] SERVICES [facility] [address] [place] [address] documented in this encounter Visit Diagnoses Not on filedocumented in this encounter
--- OUTSIDE RECORDS SUMMARY | 2022-04-02 13:07 | XMS_ITS | Encounter Summary ---
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 Mass of left ankle Abigail Barahona, THERESA Procedures MR EXTREMITY ANKLE W/WO CONTRAST [address] [place] [address] Referral ID Status Reason Start Date Expiration Date Visits V isits Requested Authorized [id number] New Request 03/10/2019 1 1 Reason for Visit Reason Comments Foot Pain bilateral Consult, Test and Treat (Routine) - Authorization Not Required Specialty Diagnoses / Procedures Referred By Contact Refer red To Contact Orthopedic Surgery Diagnoses Bilateral calcaneal spurs Percy Roche DO [facility] [place] [address] [place] [address] Phone: Fax: Referral ID Status Reason Start Expiration Visits Visits Date Date Requested Authorized [id number] Authorization Not 1 1 Required Encounter Details Date Type Department Care Team Description 03/10/2019 Office Visit [facility] Gurjit Barahonalund's deformity, bilateral (Primary Dx); Foot & Ankle Program - THERESA Hayes Calcific Achilles tendinitis of both low er extremities; [address] Mass of left ankle [address] [place], [facility] [phone] [phone] Social History Tobacco Use Types Packs/Day Years [...] decisions? 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 Misa's deformity, bilateral M92.61 732.5 MR EXTREMITY ANKLE W/WO CONTRAST M92.62 2. 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 Mass of left ankle R22.42 719.67 MR EXTREMITY ANKLE W/WO CONTRAST Rox Cervantes is being seen today for Foot Pain (bilateral) We have been asked to see her in consultation by Dr. Roche. SUBJECTIVE: Rox Cervantes is a 53 y.o. female who presents for evaluation of bilateral posterior heel pain, left greater than right. For many years she has been dealing with pain in the back of both heels. She has chronic pain and swelling in this region, which is aggravated by any pressure over the backs of her heels. She has been worked up for this in the past by an Orthopedic surgeon in [facility] she had heel spurs and misa's deformities. She was also found to have a lipoma in her left ankle which was confirmed on ankle MRI over 7 years ago. This has gradually gotten larger over time. She was scheduled to have surgery on her left heel/ankle about 4 years ago, although ultimately got nervous about it and cancelled the surgery. The pain has gradually worsened over time and she is now ready to move forward with surgery. 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 No past medical history on file. No past surgical history on file. Social History Tobacco Use ??? Smoking status: Never Smoker ??? Smokeless tobacco: Never Used Substance Use Topics ??? Alcohol use: Not on file No family history on file. Current Outpatient Medications Medication Sig Dispense Refill ??? sertraline (ZOLOFT) 100 mg tablet Take 100 mg by mouth daily. ??? traMADol (ULTRAM) 50 mg tablet Take 50 mg by mouth. No current facility-administered medications for this visit. Allergies Allergen Reactions ??? Aspirin ??? Benadryl [Diphenhydramine Hcl] ??? Flexeril [Cyclobenzaprine] Review of Systems: Documented on the patient intake form. These were reviewed by me. Pertinent positives mentioned above. Musculoskeletal: positive as per HPI. OBJECTIVE: The patient is in no acute distress. She appears normal with appropriate mood and affect. She is alert and oriented to person, place, and time. She is a good historian. Capillary refill of both feet is normal and pedal pulses are palpable. Light touch sensation is intact in the deep peroneal, superficial peroneal, sural, saphenous and tibial nerve distributions. Musculoskeletal: Gait: normal. Standing Alignment: arches are normal, with neutral alignment of the heels and neutral alignment of the midfoot/forefoot. Hallux Exam: no deformity with good ROM, no inflammation and no tenderness. Tailors's Bunions are absent Hammertoes are absent. Range of Motion: ankles normal, subtalar joints normal Motor Strength: Dorsiflexion is normal - Plantar flexion is normal - Resisted inversion is normal - Resisted eversion is normal Areas of Swelling: Posterior heel swelling bilaterally; Left ankle- there is a soft tissue mass palpated posterior lateral ankle joint Areas of Tenderness: Posterior heel pain bilaterally Skin exam of lower extremities: Metatarsal Callus: absent. Rash: absent. Prior workup of the patient: none Xrays obtained today: 3 weight bearing views of both ankles. Independent review: There is evidence of Misa's deformity bilaterally with significant enthesopathy noted at the insertion site of the Achilles tendons bilaterally. ASSESSMENT: 1. Misa's deformity, bilateral MR EXTREMITY ANKLE W/WO CONTRAST 2. 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 Mass of left ankle MR EXTREMITY ANKLE W/WO CONTRAST Other Orders Placed This Visit Procedures ??? MR EXTREMITY ANKLE W/WO CONTRAST PLAN: Conservative and surgical management options for Misa's Deformity and calcific Achilles tendonitis were reviewed. She feels the pain negatively affects her quality of life, she has exhausted conservative treatment modalities, and she would like to consider her surgical options. Her left ankle is most problematic and she would like to start with this one first. She will be sent for an MRI of her left ankle to evaluate the Achilles tendon, as well as the soft tissue mass further, which she has previously been told is a lipoma. She will follow-up with one of the foot and ankle surgeons for surgicalconsult. Plan includes: -Activity: as tolerated -Comfort: donut padding around prominence to offload -Shoe modification: wear open backed shoes to decrease pressure over prominence; -Ice: if inflammation present -Stretching: Achilles tendon stretches -Medications: OTC anti-inflammatories as needed with meals -Smoking cessation: encouraged- she quite for 12 years and recently restarted. She has plans to quitagain by next week. -Consults:none -X-rays for next visit:none -Tests prior to next visit: MRI left ankle w/wo contrast -Follow up: will call after MRI to review results; return for consult with one of the foot and anklesurgeons Patient voices understanding and agrees with the plan. Dr. Sarath Smith MD, was on site and available for questions during this visit but was not consulted. Cc: Requesting Provider - Dr. 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 Medication Sig Dispensed Refills Start Date End Date sertraline (ZOLOFT) 100 mg Take 150 mg by mouth 0 tablet daily. traMADol (ULTRAM) 50 mg Take 50 mg by mouth. 0 tablet added in this encounter Care Teams [employer] Industrial [employer] Teacher Relationship Specialty Start Date End Date Percy Roche DO PCP - General 03/08/[address] [place] [id number] documented as of this encounter
--- OUTSIDE RECORDS SUMMARY | 2022-04-02 13:07 | XMS_ITS | Encounter Summary ---
:1965 Author Organization [facility] Address [address] [place] [address] Care Team Providers Name Role Phone Percy Roche DO Primary Care Provider Reason for Visit Reason Comments Pain Pain Encounter Details Date Type Department Care Team Description 06/12/2019 Office Visit [facility] Slava Remy fic Achilles tendinitis of both lower extremities (Primary Dx); Foot & Ankle Program - DMD Little's deformity, bilateral [address] [place], [facility] [phone] [phone] Social History Tobacco Use Types Packs/Day Years [...] encounter Progress Notes Slava Remy MD - 06/12/2019 1030 EST Diagnosis: ICD-10-CM ICD-9-CM 1. 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 Little's deformity, bilateral M92.61 732.5 CASE REQUEST OPERATING ROOM M92.62 CASE REQUEST OPERATING ROOM Rox Cervantes is being seen today for Pain of the Right Foot and Pain of the Left Foot We have been asked to see her in consultation by Dr. Roche. HPI: Rox Cervantes is a 53-year-old 4 foot eleven 235 pound young lady comes in today with several year history of bilateral heel pain. 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 The pain is gradually gotten worse to the point where it is interfering with her ability to work. She is tried stretching and immobilization none of which have been helpful. We have been asked to see her in consultation regarding her diagnosis and treatment options. She is not had any specific trauma to either heel. She does not smoke or drink. She is not allergic to anything and takes no medications. Patient Active Problem List Diagnosis Code ??? 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 Little's deformity, bilateral M92.61, M92.62 History reviewed. No pertinent past medical history. History reviewed. No pertinent surgical history. Social History Tobacco Use ??? Smoking status: Never Smoker ??? Smokeless tobacco: Never Used Substance Use Topics ??? Alcohol use: Not on file History reviewed. No pertinent family history. Current Outpatient Medications Medication Sig Dispense Refill ??? sertraline (ZOLOFT) 100 mg tablet Take 150 mg by mouth daily. ??? traMADol (ULTRAM) 50 mg tablet Take 50 mg by mouth. No current facility-administered medications for this visit. Allergies Allergen Reactions ??? Aspirin ??? Benadryl [Diphenhydramine Hcl] ??? Flexeril [Cyclobenzaprine] Review of Systems A ten point review of systems was performed. Pertinent positives are listed below, all others are negative: Musculoskeletal: positive for as per HPI vitals were not taken for this visit. Pain Vitals: Pain Location: Foot Sandhu-Wiley Pain Rating (Scale 0-10): Hurts whole lot Numeric Pain Level (Scale 1-10): 7 Pain in another site? : No Pain Quality: Aching, Sore, Sharp, Throbbing, Burning Pain Duration: Continuous Pain Aggravating Factors: Activity, Movement General appearance: alert, no distress Physical examination today shows that her hand exam is completely within normal limits. DTR's are 2+at both knees and ankles with intact pulses throughout. Sensation to light touch is intact. Skin is intact with no fat pad atrophy noted. Passive range of motion of the ankle, subtalar and midfoot joints are within normal limits bilaterally. Motor function about the ankle bilaterally is within normal limits. She has normal arches bilaterally. Her gait is antalgic. Overall alignment of the ankle, midfoot, and hindfoot bilaterally is within normal limits. She has no plantar calluses underneath the metatarsal heads. Alignment of her great toe bilaterally is within normal limits. She has normal motion on dorsiflexion, plantarflexion of first metatarsophalangeal joint bilaterally. There is normal flexibility and negative grind test of the first MTP joint bilaterally. She has no hammertoes that are flexible or fixed and her toenails are normal in appearance. Anxiety index is 5/10. Pertinent positive findings: Examination of her posterior heels shows that she has prominences at the Achilles insertions. Both are tender both in the retrocalcaneal spaces as well as at the Achilles insertion. In addition she has what appears to be a lipoma over the lateral aspect between the peroneal tendons and the Achilles. She has recent standing films of both feet as well as an MRI on the left. The standing films show extensive calcification of the Achilles insertion with prominent Little's deformities. The MRI shows over 50% involvement of the Achilles by the calcification as well as the lipoma noted on clinical [facility]. Plan: I have discussed with Ms. Cervantes the possibility of surgery, which would be a left Achilles debridement with detachment and repair and possible FHL transfer and resection of the lateral lipoma. Risksand benefits of the surgery were discussed with the patient (including risks of infection, bleeding,nerve damage, healing, and anesthesia), and all questions were answered. She understands and wishes to proceed with the surgery. ICD-10-CM ICD-9-CM 1. 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 Little's deformity, bilateral M92.61 732.5 CASE REQUEST OPERATING ROOM M92.62 CASE REQUEST OPERATING ROOM No orders of the defined types were placed in this encounter. Imaging for next visit:none Follow up: Return for surgery. Cc: Referring Provider - Dr. Roche PCP - Percy Roche Nel Aviles LPN - 06/12/2019 1030 EST Patient Education Topic: pre-op for 09-13-[address] Remy Method: Handout and Verbal Taught to: Patient Barriers: None Outcomes: independent and verbalized understanding Discussed acetaminophen protocol; hand-out given. Signed informed consent. Signature: NEL AVILES LPN 9:28 documented in this encounter Plan of Treatment Not on filedocumented as of this encounter Visit Diagnoses Diagnosis Calcific Achilles tendinitis of both low er extremities - Primary Little's deformity, bilateral documented in this encounter Orders Case Request Count Last Ordered Date First Ordered Date CASE REQUEST OPERATING ROOM 1 06/12/2019 documented in this encounter Care Teams Principal Associate Relationship Specialty Start Date End Date Percy Roche DO PCP - General 03/08/[address] [place] [id number] documented as of this encounter
--- OUTSIDE RECORDS SUMMARY | 2022-04-02 13:07 | XMS_ITS | Clinical Summary ---
:1965 Author Organization [facility] [place] [address] Care Team Providers Name Role Phone Percy Roche DO Primary Care Provider Medications No known medications Active Problems Problem Noted Date Morbid obesity 01/08/2015 Immunizations Name Administration Dates Next Due Influenza PF, Split 03/18/2012 Influenza Vaccine PF, Quadrivalent 02/28/2019, 03/22/2018 Social History Tobacco Use Types Packs/Day Years Used Date Smoking Tobacco: Never Assessed Sex Assigned at Date Recorded Not on file Plan of Treatment Health Maintenance Due Date Last Done Comments Hepatitis B vaccine (0-59 yrs) (1 of 1965 3 - 3-dose series) Covid-19 Vaccine (#1) 05/06/1965 HIV screen 1982 Hepatitis C Screening 1982 Tdap adult 11/05/1983 Tetanus vaccine 11/05/1983 HPV test 1994 PAP Smear 1994 Breast Cancer Share Decision Needed 2004 Colonoscopy 2009 Breast Cancer screening 2014 Zoster vaccine (1 of 2) 2014 Advance Directive 11/05/2019 Influenza (Flu) vaccine (1 of 1 - 01/15/2022 02/28/2019, , Influenza standard series) 03/18/2012 Care Teams Room Service Attendant Relationship Specialty Start Date End Date Percy Roche DO PCP - General 04/18/[address] [place] [phone]
--- OUTSIDE RECORDS SUMMARY | 2022-04-02 13:07 | XMS_ITS | Encounter Summary ---
:[address] [facility] Address [address] [place] [address] Care Team Providers Name Role Phone Percy Roche DO Primary Care Provider Reason for Visit Reason Onset Date Comments Pre-op Exam 01/16/2020 Encounter Details Date Type Department Care Team Description 01/16/2020 Orders Only [facility] Slava Remy red Little's deformity of left heel (Primary Dx); Foot & Ankle Program - DMD Calcific Achilles tendonitis [address] [facility] [address] [place], [place] [facility] [address] [phone] Social History Tobacco Use Types Packs/Day Years [...] as of this encounter Visit Diagnoses Diagnosis Acquired Little's deformity of left marisa l - Primary Calcific Achilles tendonitis Calcium deposits in tendon and bursa documented in this encounter Care Teams Forest Nursery Worker Relationship Specialty Start Date End Date Percy Roche DO PCP - General 03/08/[address] [place] [id number] documented as of this encounter
--- OUTSIDE RECORDS SUMMARY | 2022-04-02 13:07 | XMS_ITS | Encounter Summary ---
:1965 Author Organization [facility] Address [address] [place] [address] Care Team Providers Name Role Phone Percy Roche DO Primary Care Provider Encounter Details Date Type Department Care Team Description 03/10/2019 Results Only Imaging [facility] Foot Jun, & Ankle Program - THERESA Hayes [address] [place], [place], [place] [address] [place] [phone] (Wo rk) Social History Tobacco Use [...] Name Priority Date/Time Associated Diagnosis Comme nts ANKLE 3 OR MORE 03/10/2019 10:58 Results for this VIEWS EDT procedure are i n the results section. documented in this encounter Results ANKLE 3 OR MORE VIEWS (03/10/2019 10:58 EDT) Anatomical Region Laterality Modality Other Specimen Anatomical Collection Method Collection Time Receive d Time (Source) Location / / Volume Laterality 03/10/2019 10:58 03/10/2019 EDT 11:47 EDT Narrative 03/10/2019 11:47 EDT ANKLE 3 OR MORE VIEWS, ANKLE 3 OR MORE VIEWS ??03/10/2019 10:58 AM Clinical History/Comments: M25.571-Pain in right ankle and joints o f right foot-ICD-10 M25.572-Pain in left ankle and joints of left foot-ICD-10; bilateral ankle pain COMPARISON: None available FINDINGS: Left ankle 3 views show chronic appearin g, exuberant and large size enthesophyte arising from the posterior aspect of the calcaneus. Also with soft tissue thickening in and along the distal portion of the Achilles tendon shadow, findings com patible with insertional Achilles tendinosis and/or retro calcane al / retro achilles bursitis. In addition there is prominenc e of the posterosuperior aspect of the calcaneus consistent with a small Little's osseous deformity. Please correlate for any clin ical evidence of Little's syndrome, a clinical diagnosis. MR imagi ng of the ankle may be obtained for further assessment, if clin ically warranted. A chronic appearing moderately prominent plantar c alcaneal enthesophyte is present. Mild degenerative changes visua lized at the tibiotalar, subtalar and Chopart joints. Degenerativ e changes in the midfoot region to be more severe but with this a clif incompletely assessed. There is an os trigonum with superimpose d degenerative changes at the synchondrosis. Right ankle 3 views show chronic appeari ng, exuberant and large size enthesophyte arising from the posterior aspect of the calcaneus. Also with soft tissue thickening in and along the distal portion of the Achilles tendon shadow, findings com patible with insertional Achilles tendinosis and/or retro calcane al / retro achilles bursitis. In addition there is prominenc e of the posterosuperior aspect of the calcaneus consistent with a small Little's osseous deformity. Please correlate for any clin ical evidence of Little's syndrome, a clinical diagnosis. MR imagi ng of the ankle may be obtained for further assessment, if clin ically warranted. A chronic appearing moderately prominent plantar c alcaneal enthesophyte is present. Mild degenerative changes visua lized at the tibiotalar, subtalar and Chopart joints. Degenerativ e changes in the midfoot region to be more severe but with this a clif incompletely assessed. Procedure Note Scar Be MD - 03/10/2019 ANKLE 3 OR MORE VIEWS, ANKLE 3 OR MORE V IEWS 03/10/2019 10:58 AM Clinical History/Comments: M25.571-Pain in right ankle and joints o f right foot-ICD-10 M25.572-Pain in left ankle and joints of left foot-ICD-10; bilateral ankle pain COMPARISON: None available FINDINGS: Left ankle 3 views show chronic appearin g, exuberant and large size enthesophyte arising from the posterior aspect of the calcaneus. Also with soft tissue thickening in and along the distal portion of the Achilles tendon shadow, findings com patible with insertional Achilles tendinosis and/or retro calcane al / retro achilles bursitis. In addition there is prominenc e of the posterosuperior aspect of the calcaneus consistent with a small Little's osseous deformity. Please correlate for any clin ical evidence of Little's syndrome, a clinical diagnosis. MR imagi ng of the ankle may be obtained for further assessment, if clin ically warranted. A chronic appearing moderately prominent plantar c alcaneal enthesophyte is present. Mild degenerative changes visua lized at the tibiotalar, subtalar and Chopart joints. Degenerativ e changes in the midfoot region to be more severe but with this a clif incompletely assessed. There is an os trigonum with superimpose d degenerative changes at the synchondrosis. Right ankle 3 views show chronic appeari ng, exuberant and large size enthesophyte arising from the posterior aspect of the calcaneus. Also with soft tissue thickening in and along the distal portion of the Achilles tendon shadow, findings com patible with insertional Achilles tendinosis and/or retro calcane al / retro achilles bursitis. In addition there is prominenc e of the posterosuperior aspect of the calcaneus consistent with a small Little's osseous deformity. Please correlate for any clin ical evidence of Little's syndrome, a clinical diagnosis. MR imagi ng of the ankle may be obtained for further assessment, if clin ically warranted. A chronic appearing moderately prominent plantar c alcaneal enthesophyte is present. Mild degenerative changes visua lized at the tibiotalar, subtalar and Chopart joints. Degenerativ e changes in the midfoot region to be more severe but with this a clif incompletely assessed. Abigail Barahona NP IMG DIAGNOSTIC IMAGING ORDER KARL documented in this encounter Visit Diagnoses Not on filedocumented in this encounter Care Teams Chief Lending Officer Relationship Specialty Start Date End Date Percy Roche DO PCP - General 03/08/[address] [place] [id number] documented as of this encounter
--- OUTSIDE RECORDS SUMMARY | 2022-04-02 13:07 | XMS_ITS | Encounter Summary ---
:1965 Author Organization [facility] Address [address] [place] [address] Care Team Providers Name Role Phone Percy Roche DO Primary Care Provider Encounter Details Date Type Department Care Team Description 01/15/2020 Travel Social History Tobacco Use Types Packs/Day [...] on filedocumented in this encounter Care Teams Data Communications Engineer Relationship Specialty Start Date End Date Percy Roche DO PCP - General 03/08/19 [address] [place], [place] [id number] documented as of this encounter
--- OUTSIDE RECORDS SUMMARY | 2022-04-02 13:07 | XMS_ITS | Encounter Summary ---
:1965 Author Organization [facility] Address [address] [place] [address] Care Team Providers Name Role Phone Percy Roche DO Primary Care Provider Reason for Referral Radiology Services (Routine) - New Request Specialty Diagnoses / Procedures Referred By Contact Refer red To Contact Diagnoses Bilateral ankle pain, unspecified chronicity Abigail Barahona NP Procedures ANKLE 3 OR MORE VIEWS [address] [place] [address] Referral ID Status Reason Start Date Expiration Date Visits V isits Requested Authorized [id number] New Request 03/09/2019 1 1 Encounter Details Date Type Department Care Team Description 03/08/2019 Orders Only [facility] Jun Bilateral ankle pain, Foot & Ankle Program - THERESA Hayes unspecified chronicity [address] (Primary Dx) [address] [place], [facility] [id number] Social History Tobacco Use Types Packs/Day Years Used Date Smoking Tobacco: Never Assessed Sex Assigned at Date Recorded Not on file documented as of this encounter Plan of Treatment Not on filedocumented as of this encounter Procedures Procedure Name Priority Date/Time Associated Diagnosis Comme nts ANKLE 3 OR MORE Routine 03/10/2019 10:58 Bilateral ankle Resul ts for this VIEWS EDT pain, unspecified procedure are in chronicity the results section. documented in this encounter [...] KARL documented in this encounter Visit Diagnoses Diagnosis Bilateral ankle pain, unspecified chroni city - Primary documented in this encounter Care Teams Wilton Weaver Relationship Specialty Start Date End Date Percy Roche DO PCP - General 03/08/19 [address] [place] [address] documented as of this encounter
--- OUTSIDE RECORDS SUMMARY | 2022-04-02 13:07 | XMS_ITS | Encounter Summary ---
:1965 Author Organization [facility] Address [address] [place] [address] Care Team Providers Name Role Phone Percy Roche DO Primary Care Provider Reason for Visit Reason Onset Date Comments Appointment Related 04/06/2019 Encounter Details Date Type Department Care Team Description 04/06/2019 Telephone [facility] Foot Ike Barahona ra, Appointment Related & Ankle Program - Ludin spear NP [address] [phone] (Wo rk) Social History Tobacco Use [...] this encounter Miscellaneous Notes Telephone Encounter - Jeannette Garza MA - 04/06/2019 1145 EST Left message with MRI date and time, 04/20/2019, check in at main hospital registration at 815 PM. Left MRI scheduling line in cast she needs a different appointment and advised her to call with any questions or concerns in the meantime. documented in this encounter Plan of Treatment Not on filedocumented as of this encounter Visit Diagnoses Not on filedocumented in this encounter Care Teams Apn Relationship Specialty Start Date End Date Percy Roche DO PCP - General 03/08/[address] [place] [address] documented as of this encounter
--- OUTSIDE RECORDS SUMMARY | 2022-04-02 13:07 | XMS_ITS | Encounter Summary ---
:1965 Author Organization [facility] Address [address] [place] [address] Care Team Providers Name Role Phone Percy Roche DO Primary Care Provider Reason for Visit Reason Onset Date Comments Results 05/01/2019 Encounter Details Date Type Department Care Team Description 05/01/2019 Telephone [facility] Foot & Abigail Rankin lt, NP Results Ankle Program - [facility] [address] [facility] [place], [place] [phone] (Wo rk) Social History Tobacco Use [...] this encounter Miscellaneous Notes Telephone Encounter - Abigail Barahona APRN - 05/01/2019 1026 EST I left Rox a message detailing her MRI results. She already has a surgical consult scheduled with Dr. Remy for 06/12/2019. She was encouraged to call back if she has any questions or concerns prior to her consult. documented in this encounter Plan of Treatment Not on filedocumented as of this encounter Visit Diagnoses Not on filedocumented in this encounter Care Teams Teleprinter Relationship Specialty Start Date End Date Percy Roche DO PCP - General 03/08/[address] [place] [address] documented as of this encounter
== END ==
PROVIDERS: PCP Neuromusculoskeletal Medicine & OMM; Visit Provider Preventive Medicine Occupational Medicine
DX: M17.0 Bilateral primary osteoarthritis of knee (principal)
CPT/HCPCS: 73564

== ENCOUNTER 2022-04-20 14:19 | Outpatient (CLI) | payer MEDICAID, SELFPAY ==
--- NOTE | 2022-04-20 14:15 | DI.RAD_ITS ---
Exam(s) XR HIP PELVIS ADULT BL EXAM: XR HIP PELVIS ADULT BL CLINICAL HISTORY: bilateral hip pain. TECHNIQUE: 2D digital imaging was performed. Three views. COMPARISON: No exams were available for comparison FINDINGS: BONES: No acute fracture is present. No bony destructive lesion is seen. Enthesophytes are seen at the greater trochanters and iliac wings. JOINTS: No dislocation present. Moderate to severe bilateral hip joint space narrowing, symmetric b ilaterally.. Prominent periarticular spurring greatest at the acetabula. SOFT TISSUE: Normal. IMPRESSION: Moderate to severe degenerative changes of both hips. DATA REPOSITORY: RADIATION DOSE DELIVERED:
== END 2022-04-20 14:20 | disposition home or self-care (01) ==
LOC: DIORS 14:20
PROVIDERS: PCP Neuromusculoskeletal Medicine & OMM; Referring Provider Neuromusculoskeletal Medicine & OMM; Visit Provider Physician Assistant
DX: M25.551 Pain in right hip (principal); M25.552 Pain in left hip; M16.0 Bilateral primary osteoarthritis of hip
CPT/HCPCS: 73521

== ENCOUNTER 2022-04-28 14:26 | Outpatient (CLI) | payer MEDICAID, SELFPAY ==
--- NOTE | 2022-04-28 06:00 | DI.RAD_ITS ---
Exam(s) XR PAIN CLINIC LUMBAR SP 2V EXAM: XR PAIN CLINIC LUMBAR SP 2V CLINICAL HISTORY: DX: Lumbar spondylosis TECHNIQUE: 2D and realtime digital imaging was performed. CONTRAST MATERIAL: Refer to procedure report. COMPARISON: No exams were available for comparison FINDINGS: Fluoroscopy was provided for Dr. Felton during the performance of a bilateral lumbar medial branch block . Please refer to the procedure report for complete details. Ka,r=9.1 mGy IMPRESSION:
[2022-04-28 14:39] VITALS: BP 133/90; PULSE 85; RESP 20; TEMP 36.6; O2SAT 96
--- NOTE | 2022-04-28 15:34 | PDOC.PAIN ---
Date of service: 04/28/22 Time of Service: 15:34 Pain Clinic Procedure Note Procedure Note Procedure Note: Lumbar/Sacral Medial Branch Blocks Rox Cervantes has been referred to the [facility] for lumbar/sacral medial branch blocks. Pre-Procedure Diagnosis: lumbar spondylosis Post-procedure diagnosis: same as above COMMENTS: patient underwent bilateral lumbar RFA by Dr Berger in 2014 which provided 80% pain relief lasting for more than 15 months. Patient was interviewed and the medical record reviewed. There were no medical, pharmacologic, radiographic or other structural contraindications to attempting fluoroscopically guided local anesthetic lumbar/sacral medial branch blocks. Risks and expected side effects as well as potential benefit of the procedure were reviewed and voiced concerns addressed. The printed consent form was signed and witnessed. Standard time-out procedure was performed. Patient was placed in the prone position on the fluoroscopy table and automated blood pressure cuff and pulse oximeter applied. The skin entry points for approaching the anatomic target points of the segmental medial branches of bilateral L3, L4, L5-DR were identified with anfluoroscopy and marked. Following thorough Chlorhexadine preparation of the skin and draping and 1% lidocaine infiltration of the skin entry points and subcutaneous tissues, a 22 gauge spinal needle was placed under fluoroscopic guidance down on to the target point for each respective segmental medial branch.Position was confirmed in A/P, oblique and lateral views with 0.25ml of omnipaque 240. Coult be this method .5ml 0.5% Bupivacaine was injected. Vital signs were stable throughout the procedure and were as recorded in the docflowsheet by the nursing staff. Follow up plans and appointments were discussed and was instructed to keep careful note of how the usual pain was modified by these injections. Specifically was asked to keep a pain diary for the next 24 hours using a numeric pain scale of 0-10 and report these results at the follow-up visit. Post procedure instruction was given as documented in the nursing documentation and having met discharge criteria. Patient was discharged from the [facility]. Based on the medial branches blocked today, if the patient has adequate relief and we are able to proceed to radiofrequency ablation, the treatment should result in the denervation of the bilateral L4/5, L5/S1 facets. We would expect to denervate a total of 4 facets during the radiofrequency ablation. COMMENTS: Pre-procedure VAS 8/10 and post-procedure VAS 8/10 Davey Felton MD Pain Management CC: Percy Roche
[2022-04-28 15:36] VITALS: BP 128/90; PULSE 83; RESP 17; O2SAT 96
[2022-04-28] MEDS: Omnipaque 240 MG/ML 50 ML BTL IJ (15:37)
[2022-04-28] MEDS: Bupivacaine 0.5% Pres-Free 10 ML VIAL IJ (15:37)
[2022-04-28] MEDS: Lidocaine 1% Pres-Free 5 ML VIAL (15:38)
--- NOTE | 2022-04-28 16:02 | PDOC.PAIN ---
Date of service: 04/28/22 Time of Service: 16:02 Pain Clinic Procedure Note Procedure Note Procedure Note: Lumbar/Sacral Medial Branch Blocks Rox Cervantes has been referred to the [facility] for lumbar/sacral medial branch blocks. Pre-procedure diagnosis: lumbar spondylosis Post-procedure diagnosis: same as above COMMENTS: Patient presents with axial back pain that had previously responded to lumbar RFA by Dr Berger in 2015, which provided sustained pain relief of 15 months. She is here to have confirmatory diagnostic lumbar medial branch nerve block. Patient was interviewed and the medical record reviewed. There were no medical, pharmacologic, radiographic or other structural contraindications to attempting fluoroscopically guided local anesthetic lumbar/sacral medial branch blocks. Risks and expected side effects as well as potential benefit of the procedure were reviewed and voiced concerns addressed. The printed consent form was signed and witnessed. Standard time-out procedure was performed. Patient was placed in the prone position on the fluoroscopy table and automated blood pressure cuff and pulse oximeter applied. The skin entry points for approaching the anatomic target points of the segmental medial branches of bilateral L3, L4, L5-DR were identified with anfluoroscopy and marked. Following thorough Chlorhexadine preparation of the skin and draping and 1% lidocaine infiltration of the skin entry points and subcutaneous tissues, a 22 gauge spinal needle was placed under fluoroscopic guidance down on to the target point for each respective segmental medial branch.Position was confirmed in A/P, oblique and lateral views with 0.25ml of omnipaque 240. Coult be this method .5ml 0.5% Bupivacaine was injected. Vital signs were stable throughout the procedure and were as recorded in the docflowsheet by the nursing staff. Follow up plans and appointments were discussed and was instructed to keep careful note of how the usual pain was modified by these injections. Specifically was asked to keep a pain diary for the next 24 hours using a numeric pain scale of 0-10 and report these results at the follow-up visit. Post procedure instruction was given as documented in the nursing documentation and having met discharge criteria. Patient was discharged from the [facility]. Based on the medial branches blocked today, if the patient has adequate relief and we are able to proceed to radiofrequency ablation, the treatment should result in the denervation of the bilateral L4/5, L5/S1. We would expect to denervate a total of 4 facets during the radiofrequency ablation. COMMENTS: Pre-procedure VAS score 6/10, post-procedure VAS score 4/10 Davey Felton MD Pain Management CC: Percy Roche
== END 2022-04-28 14:27 | disposition home or self-care (01) ==
LOC: PC 14:32
PROVIDERS: PCP Neuromusculoskeletal Medicine & OMM; Visit Provider Internal Medicine
DX: M47.816 Spondylosis without myelopathy or radiculopathy, lumbar region (principal)
CPT/HCPCS: 64493; 64494; 72100; Q9967

== ENCOUNTER 2022-04-30 02:11 | Outpatient (CLI) | payer MEDICAID, SELFPAY ==
--- NOTE | 2022-04-30 08:15 | DI.RAD_ITS ---
Exam(s) RF JOINT INJECTION FLUORO GUID EXAM: RF JOINT INJECTION FLUORO GUID CLINICAL HISTORY: LT HIP PAIN, FLUORO GUIDED INJECTION, M15.12,OA TECHNIQUE: 2D and realtime digital imaging was performed. CONTRAST MATERIAL: Refer to procedure report. COMPARISON: No exams were available for comparison FINDINGS: Fluoroscopy was provided for Dr. Greer during the performance of a left hip injection. Please re rafy to the procedure report for complete details. Ka,r=18.9 mGy IMPRESSION: RADIATION DOSE DELIVERED:
--- NOTE | 2022-04-30 08:15 | DI.RAD_ITS ---
Exam(s) RF JOINT INJECTION FLUORO GUID EXAM: RF JOINT INJECTION FLUORO GUID CLINICAL HISTORY: right hip pain, FLUORO GUIDED INJECTION,DJD, M6.11 TECHNIQUE: 2D and realtime digital imaging was performed. CONTRAST MATERIAL: Refer to procedure report. COMPARISON: No exams were available for comparison FINDINGS: Fluoroscopy was provided for Dr. Greer during the performance of a right hip injection. Please r efer to the procedure report for complete details. Ka,r=20.3 mGy IMPRESSION: RADIATION DOSE DELIVERED:
[2022-04-30] MEDS: Bupivacaine 0.5% Pres-Free 10 ML VIAL IJ (14:45)
[2022-04-30] MEDS: methylPREDNISolone ACETATE 80 MG/ML VIAL IM (14:45)
--- NOTE | 2022-04-30 14:46 | W.PROCNOTE ---
Date of service: 04/30/22 Time of Service: 14:47 Procedure Note Date of procedure: 04/30/22 Procedure: Bilateral Hip Injection with Fluoroscopic Guidance Surgeon/Proceduralist/Physician: Marcel Greer Procedure Diagnosis: Bilateral Hip Osteoarthritis Procedure Indications: Rox has had persistent pain of the BILATERAL hip and groin. Noninvasive measures have been tried. To serve as both diagnostic and therapeutic, an injection under fluoroscopy was recommended. I had discussed the risks of the procedure and the patient elected to proceed. Procedure Description: Rox was greeted in the flouroscopy room. The consent was reviewed with the patient and signed. The patient was then placed in the supine position on the fluoroscopy table. The RIGHT hip was then prepped with Chloraprep. The anterolateral injection starting point was identiifed by bony landmarks and fluoroscopy. The skin and soft tissue in the tract of the injection was anesthetized with 1% Lidocaine. A spinal needle was then inserted deep into the hip joint at the level of the lateral femoral neck under fluoroscopic guidance. A small amount of Omnipaque solution was injected to confirm intraarticular placement. Once confirmed, the hip was injected with 5cc of 0.5% Bupivicaine and 80mg of Depo-Medrol. The LEFT hip was then prepped with Chloraprep. The anterolateral injection starting point was identiifed by bony landmarks and fluoroscopy. The skin and soft tissue in the tract of the injection was anesthetized with 1% Lidocaine. A spinal needle was then inserted deep into the hip joint at the level of the lateral femoral neck under fluoroscopic guidance. A small amount of Omnipaque solution was injected to confirm intraarticular placement. Once confirmed, the hip was injected with 5cc of 0.5% Bupivicaine and 80mg of Depo-Medrol. The patient tolerated the procedure well.
== END 2022-04-30 02:31 ==
LOC: DI 02:12
PROVIDERS: PCP Neuromusculoskeletal Medicine & OMM; Visit Provider Student in an Organized Health Care Education/Training Program
DX: M16.11 Unilateral primary osteoarthritis, right hip (principal); M16.12 Unilateral primary osteoarthritis, left hip
CPT/HCPCS: 77002; J1040

== ENCOUNTER 2022-05-14 13:01 | Outpatient (CLI) | payer MEDICAID, SELFPAY ==
[2022-05-14 13:07] VITALS: BP 188/65; PULSE 66; RESP 20; TEMP 36.8; O2SAT 97
[2022-05-14] MEDS: Midazolam 2 MG/2 ML VIAL IVP (13:47)
[2022-05-14] MEDS: fentaNYL 100 MCG/2 ML VIAL IVP (13:47)
[2022-05-14] MEDS: Lactated Ringers 500 ML 80 ML IV (13:50)
--- NOTE | 2022-05-14 14:17 | DI.RAD_ITS ---
Exam(s) XR PAIN CLINIC LUMBAR SP 2V EXAM: XR PAIN CLINIC LUMBAR SP 2V CLINICAL HISTORY: Dx: Lumbar Spondylosis. TECHNIQUE: 2D and realtime digital imaging was performed. CONTRAST MATERIAL: None COMPARISON: No exams were available for comparison FINDINGS: Fluoroscopy provided during pain management lumbar spine injections. See procedure report for detail s. Radiation exposure index: Ka,r= 47.06mGy IMPRESSION: RADIATION DOSE DELIVERED: Ka,r=47.06mGy
[2022-05-14 14:18] VITALS: BP 180/68; PULSE 66; RESP 16; O2SAT 99
--- NOTE | 2022-05-14 14:27 | PDOC.PAIN ---
Date of service: 05/14/22 Time of Service: 14:27 Pain Clinic Procedure Note Procedure Note Procedure Note: Bilateral Lumbar Radiofrequency with Coolief Machine PROCEDURE NOTE Date of Service: May 14, 2022 Patient: Rox Cervantes Provider: Davey Felton MD Pre Operative Diagnosis: Lumbosacral Spondylosis without Myelopathy Post Operative Diagnosis: Same Post procedure pain; VAS= 8/10 PROCEDURE: Radiofrequency Ablation of medial branches - Bilateral L3, L4, L5-DR. Rox Nunez Helen was brought into the fluoroscopy suite and positioned into the prone position on the fluoroscopy table and allowed to adjust to a position of comfort. A grounding pad was placed on the left thigh. The lumbar region was widely prepped with a chloraprep solution, allowed to air dry and draped in standard sterile surgical fashion. Local anesthesia was provided by 10mL of 1% Lidocaine delivered with a 25g needle. A 17g 100mm radiofrequency introducer needle was placed to the planned anatomic targets guided with intermittent fluoroscopy with a perpendicular approach to terminally place at the junction of the superior articular process and the transverse process of the bilateral L3, L4, the base of the sacral ala on the bilateral for the L5 medial branch nerve. The stylets were removed and radiofrequency probes with a 4mm active tip were then inserted. Needle tip position of the probes was verified in the AP, oblique, and lateral views. At each site, the medial branch nerve was stimulated at 2 Hz to a maximum 1-2 volts determined to finalize safe needle and electrode placement. The patient was awake and responsive during this portion of the procedure. Each target was anesthetized with 1mL of 2% Lidocaine for anesthesia for lesioning and then each target was lesioned at 80 degrees Celsius for 2 minutes and 30 seconds. Tissue impedences were noted to be between 250 and 500 Ohms. Electrodes and needles were then removed and bandages placed over the needle placement sites, the patient then returned to the supine position on a stretcher and transported to the recovery room without hemodynamic, neurologic, or allergic reactions. Fluoroscopic images were printed for hard copy recording and digitally archived. POST PROCEDURE EVALUATION: IMPRESSION: 1. Summary of procedure. Medication given is documented in the MAR. Total of 1mg of IV versed and 25mcg of IV Fentanyl. 2. The patient will be contacted in 1-3 weeks 3. Estimated Blood Loss: <5 mls 4. Fluoroscopy time: Documented in the EMR. Follow up plans and appointments were discussed with the Rox . Post procedure instruction was given as documented in nursing documentation and having met discharge criteria, Rox was discharged from the Pain Management [facility]. COMMENTS: No apparent complications. Post-procedure pain: VAS= 5/10. F/U with our office as needed. I personally performed this entire procedure. Davey Felton MD Attending Physician Pain Management
[2022-05-14] MEDS: Bupivacaine 0.5% Pres-Free 10 ML VIAL IJ (14:36)
[2022-05-14] MEDS: methylPREDNISolone ACETATE 40 MG/ML VIAL IJ (14:36)
[2022-05-14] MEDS: Lidocaine 2% Pres-Free 5 ML VIAL IJ (14:36)
== END 2022-05-14 13:02 | disposition home or self-care (01) ==
LOC: PC 13:01
PROVIDERS: PCP Neuromusculoskeletal Medicine & OMM; Visit Provider Internal Medicine
DX: M47.817 Spondylosis without myelopathy or radiculopathy, lumbosacral region (principal)
CPT/HCPCS: 64635; 64636; 72100; J1030; J2250; J3010

== ENCOUNTER 2022-08-13 01:32 | Outpatient (CLI) | payer MEDICAID, SELFPAY ==
[2022-08-13] MEDS: methylPREDNISolone ACETATE 80 MG/ML VIAL 160 MG IM (14:19)
[2022-08-13] MEDS: Bupivacaine 0.5% Pres-Free 10 ML VIAL IJ (14:19)
--- NOTE | 2022-08-13 14:33 | DI.RAD_ITS ---
Exam(s) RF JOINT INJECTION FLUORO GUID EXAM: RF JOINT INJECTION FLUORO GUID CLINICAL HISTORY: L HIP INJ UNDER FLUORO,djd,m16.12. TECHNIQUE: 2D and realtime digital imaging was performed. COMPARISON: No exams were available for comparison FINDINGS: Fluoroscopy was provided for Dr. Greer for guidance with performing a left hip injection. Please see procedure note for details. Fluoro time: 8seconds RADIATION DOSE DELIVERED: Ka,r=1.25 mGy
--- NOTE | 2022-08-13 14:33 | DI.RAD_ITS ---
Exam(s) RF JOINT INJECTION FLUORO GUID EXAM: RF JOINT INJECTION FLUORO GUID CLINICAL HISTORY: R HIP INJ UNDER FLUORO,djd rt hip, oa rt hip,m16.11. TECHNIQUE: 2D and realtime digital imaging was performed. COMPARISON: No exams were available for comparison FINDINGS: Fluoroscopy was provided for Dr. Greer for guidance with performing a right hip injection. Please see procedure note for details. Fluoro time: 6seconds RADIATION DOSE DELIVERED: nelson Tapia=1.01 mGy
--- NOTE | 2022-08-13 14:33 | W.PROCNOTE ---
Date of service: 08/13/22 Time of Service: 14:33 Procedure Note Procedure: Bilateral Hip Injection with Fluoroscopic Guidance Surgeon/Proceduralist/Physician: Marcel Greer Procedure Diagnosis: Bilateral Hip Osteoarthritis Procedure Indications: Rox has had persistent pain of the BILATERAL hip and groin. Noninvasive measures have been tried. She has had previous success with injection and thus an injection under fluoroscopy was recommended. I had discussed the risks of the procedure and the patient elected to proceed. Procedure Description: Rox was greeted in the flouroscopy room. The consent was reviewed with the patient and signed. The patient was then placed in the supine position on the fluoroscopy table. The RIGHT hip was then prepped with Chloraprep. The anterolateral injection starting point was identiifed by bony landmarks and fluoroscopy. The skin and soft tissue in the tract of the injection was anesthetized with 1% Lidocaine. A spinal needle was then inserted deep into the hip joint at the level of the lateral femoral neck under fluoroscopic guidance. A small amount of Omnipaque solution was injected to confirm intraarticular placement. Once confirmed, the hip was injected with 5cc of 0.5% Bupivicaine and 80mg of Depo-Medrol. A bandaid was placed on the injection site. The LEFT hip was then prepped with Chloraprep. The anterolateral injection starting point was identiifed by bony landmarks and fluoroscopy. The skin and soft tissue in the tract of the injection was anesthetized with 1% Lidocaine. A spinal needle was then inserted deep into the hip joint at the level of the lateral femoral neck under fluoroscopic guidance. A small amount of Omnipaque solution was injected to confirm intraarticular placement. Once confirmed, the hip was injected with 5cc of 0.5% Bupivicaine and 80mg of Depo-Medrol. A bandaid was placed on the injection site. The patient tolerated the procedure well.
== END 2022-08-13 01:52 ==
PROVIDERS: PCP Neuromusculoskeletal Medicine & OMM; Visit Provider Student in an Organized Health Care Education/Training Program
DX: M16.11 Unilateral primary osteoarthritis, right hip (principal); M16.12 Unilateral primary osteoarthritis, left hip
CPT/HCPCS: 20610; 77002; J1040

== ENCOUNTER 2022-12-17 03:42 | Outpatient (CLI) | payer MEDICAID, SELFPAY ==
--- NOTE | 2022-12-17 13:57 | DI.RAD_ITS ---
Exam(s) RF JOINT INJECTION FLUORO GUID EXAM: RF JOINT INJECTION FLUORO GUID CLINICAL HISTORY: L HIP INJ UNDER FLUORO, Degenerative joint disease, M16.12 TECHNIQUE: 2D and realtime digital imaging was performed. Fluoroscopy was provided for Dr. Greer for guidance with performing a right hip injection . COMPARISON: No exams were available for comparison FINDINGS: Please see procedure note for details. Fluoro time 7 seconds. RADIATION DOSE DELIVERED: Kar=0.9 mGy
--- NOTE | 2022-12-17 14:02 | DI.RAD_ITS ---
Exam(s) RF JOINT INJECTION FLUORO GUID EXAM: RF JOINT INJECTION FLUORO GUID CLINICAL HISTORY: L HIP INJ UNDER FLUORO, Degenerative joint disease, M16.12. TECHNIQUE: 2D and realtime digital imaging was performed. COMPARISON: No exams were available for comparison FINDINGS: Fluoroscopy was provided for Dr. Greer for guidance with performing a left hip injection. Please see procedure note for details. Fluoro time: 5seconds RADIATION DOSE DELIVERED: Willier=0.71 mGy
[2022-12-17] MEDS: methylPREDNISolone ACETATE 80 MG/ML VIAL IM (14:55)
[2022-12-17] MEDS: Omnipaque 300 MG/ML 10 ML BTL IJ (14:56)
[2022-12-17] MEDS: Bupivacaine 0.5% Pres-Free 10 ML VIAL 5 ML IJ (14:57)
--- NOTE | 2022-12-17 18:47 | W.PROCNOTE ---
Date of service: 12/17/22 Time of Service: 14:00 Procedure Note Date of procedure: 12/17/22 Procedure: Bilateral Hip Injection with Fluoroscopic Guidance Surgeon/Proceduralist/Physician: Marcel Greer Procedure Diagnosis: Bilateral Hip Osteoarthritis Procedure Indications: Rox has had persistent pain of the BILATERAL hip and groin. Noninvasive measures have been tried. She has had previous success with injections. Therefore, an injection under fluoroscopy was recommended. I had discussed the risks of the procedure and the patient elected to proceed. Procedure Description: Rox was greeted in the flouroscopy room. The consent was reviewed with the patient and signed. The patient was then placed in the supine position on the fluoroscopy table. The RIGHT hip was then prepped with Chloraprep. The anterolateral injection starting point was identiifed by bony landmarks and fluoroscopy. The skin and soft tissue in the tract of the injection was anesthetized with 1% Lidocaine. A spinal needle was then inserted deep into the hip joint at the level of the lateral femoral neck under fluoroscopic guidance. A small amount of Omnipaque solution was injected to confirm intraarticular placement. Once confirmed, the hip was injected with 5cc of 0.5% Bupivicaine and 80mg of Depo-Medrol. A bandaid was placed on the injection site. The LEFT hip was then prepped with Chloraprep. The anterolateral injection starting point was identiifed by bony landmarks and fluoroscopy. The skin and soft tissue in the tract of the injection was anesthetized with 1% Lidocaine. A spinal needle was then inserted deep into the hip joint at the level of the lateral femoral neck under fluoroscopic guidance. A small amount of Omnipaque solution was injected to confirm intraarticular placement. Once confirmed, the hip was injected with 5cc of 0.5% Bupivicaine and 80mg of Depo-Medrol. A bandaid was placed on the injection site. The patient tolerated the procedure well.
== END 2022-12-17 04:02 ==
PROVIDERS: PCP Neuromusculoskeletal Medicine & OMM; Visit Provider Student in an Organized Health Care Education/Training Program
DX: M16.11 Unilateral primary osteoarthritis, right hip (principal); M16.12 Unilateral primary osteoarthritis, left hip
CPT/HCPCS: 20610; 77002; J1040

== ENCOUNTER 2023-01-07 10:58 | Emergency (ER) | payer MEDICAID, SELFPAY ==
[2023-01-07 10:59] VITALS: BP 165/85; PULSE 82; RESP 18; TEMP 36.8; O2SAT 95
--- NOTE | 2023-01-07 11:19 | ED.GENADUL_ITS ---
Discharge Plan Disposition Patient Disposition: Home Condition: Stable Discharge Details Clinical Impression: Laceration of left middle finger Primary Care Provider: Percy Roche ED Provider: Guille Katz Home Meds and New Rx's Prescriptions: Continued naproxen sodium [Aleve] 220 mg tablet 440 mg PO DAILY PRN gabapentin 100 mg capsule See Rx Instructions PO QHS Rx Instructions: 100-300mg orally every day at bedtime; sertraline 100 mg tablet 150 mg PO DAILY tramadol 50 mg tablet 50 mg PO Q12H PRN magnesium 250 mg tablet 500 mg PO DAILY acetaminophen [Acetaminophen Extra Strength] 500 MG tablet 500 mg PO Q4H PRN PRN (Reason: Pain) Qty: 30 0RF Discharge Instructions Instructions: Finger Laceration (ED) Additional Instructions: Please keep splint intact for the next 4 days. Keep sterile dressing intact for the next 2 days. Change dressing daily thereafter monitor for signs of infection including increased redness, warmth, swelling, drainage or pain. Sutures should be removed in 8 to 10 days. Return to the ER immediately for any worsening or new concerning symptoms. Referrals: Percy Roche [Primary Care Provider] - Discharge Data Discharge Date/Time-TO BE ENTERED AT DEPARTURE: 01/07/23 12:36 Medical Decision Making 1132 -- 57-year-old female here with skin laceration dorsal left third digit oozing blood. Tetanus up-to-date. Plan for primary closure after irrigation. 1215 --wound repaired per copious sterile saline irrigation without complication. HPI General Mode of arrival: ambulatory . Date/Time Provider Initiated Documentation: 01/07/23 11:11 . Limitations to Documentation: no limitations . Information obtained by: patient . HPI Narrative: 57-year-old female presents with chief complaint of laceration. Patient notes she cut her left third digit on glass accidentally just prior to arrival. Wound has been bleeding. Bleeding improved with pressure dressing. No associated numbness or tingling. No other injury Related Data Home Medications Medication Instructions Recorded Confirmed acetaminophen 500 mg tablet 500 mg PO Q4H PRN PRN Pain #30 tabs 08/27/12 01/07/23 (Acetaminophen Extra Strength) sertraline 100 mg tablet 150 mg PO DAILY 03/20/22 01/07/23 tramadol 50 mg tablet 50 mg PO Q12H PRN 03/20/22 01/07/23 gabapentin 100 mg capsule See Rx Instructions PO QHS 12/04/22 01/07/23 magnesium 250 mg tablet 500 mg PO DAILY 12/04/22 01/07/23 naproxen sodium 220 mg tablet 440 mg PO DAILY PRN 12/04/22 01/07/23 (Aleve) Previous Rx's Medication Instructions Recorded acetaminophen 500 mg tablet 500 mg PO Q4H PRN PRN Pain #30 tabs 08/27/12 (Acetaminophen Extra Strength) Allergies Allergy/AdvReac Type Severity Reaction Status Date / Time meperidine HCl [From Demerol] Allergy Intermediate Hives Unverified 01/07/23 11:07 diphenhydramine HCl Allergy Mild Skin Rash Unverified 01/07/23 11:07 [From Benadryl] aspirin Allergy Hives Unverified 01/07/23 11:07 cyclobenzaprine HCl Allergy Hives Unverified 01/07/23 11:07 [From Flexeril] General Stated Complaint: Laceration MARINE: 4 Review of Systems Integumentary/Breasts Skin/Breast: Reports as per HPI PFSH All Active Problems (Updated 01/07/23 @ 11:33 by Guille Katz MD) Laceration of left middle finger (Acute) Pain disorder associated with psychological and physical factors (Acute) Chronic pain (Chronic) Psychological and behavioral factors associated with disorders or diseases classified elsewhere (Acute) Degenerative joint disease of right hip (Chronic) Degenerative joint disease of left hip (Chronic) Lumbosacral spondylosis without myelopathy (Acute) Chronic pain syndrome (Chronic) Osteoarthritis of knees, bilateral (Chronic) Depo-medrol injection: 08/17/2022; 04/20/2022; 12/04/22 Encounter for Pap smear of cervix with HPV DNA cotesting (Acute) IUD surveillance (Acute) Counseling for hormone replacement therapy (Acute) Well woman exam (Acute) Medical History Arthropathy Calcaneal spur of right foot Carpal tunnel syndrome Deformity Depressive disorder Ganglion and cyst of synovium, tendon and bursa Hip pain Hyperlipidemia Idiopathic osteoarthritis Insomnia Knee pain Obesity Plantar fascial fibromatosis Sciatica Snoring Family History Mother Hypertension Father Heart disease Social History Smoking/Tobacco Use Status: Former Tobacco Use Smoking risk assessment performed?: Yes Alcohol Intake: current Alcohol Intake frequency: holidays/special occasions only Drug use: Rarely Substance use type: does not use Housing: house Do you feel safe in your relationship?: Yes Exam Skin Trauma: laceration (2 cm curved laceration dorsal left third digit oozing blood) Extrem Other: Left third digit laceration noted, neurovascular intact distally Course Vital Signs Vital signs: Vital Signs Temperature 36.8 C 01/07/23 10:59 Pulse 82 01/07/23 10:59 Respiratory Rate 18 01/07/23 10:59 Blood Pressure 165/85 H 01/07/23 10:59 Pulse Oximetry 95 01/07/23 10:59 Temperature 36.8 C 01/07/23 10:59 Temperature Source Temporal Artery Scan 01/07/23 10:59 Pulse 82 01/07/23 10:59 Respiratory Rate 18 01/07/23 10:59 Respiratory Effort Normal 01/07/23 11:04 Blood Pressure 165/85 H 01/07/23 10:59 Blood Pressure Position Sitting 01/07/23 10:59 Pulse Oximetry 95 01/07/23 10:59 Oxygen Delivery Method Room Air 01/07/23 10:59 Oxygen Flow Rate 0 01/07/23 10:59 Pain Level 0 01/07/23 10:59 Procedures Laceration Laceration 1: Site: hand Side (If applicable): left Size (cm): 2 Description: flap Depth: simple, single layer Local Anesthetic: other anesthetic (LET) Pre-repair: wound explored, irrigated extensively and deep structures intact Skin layer closed with: other (prolene) Size (cm): 5-0 Number of sutures: 3 Technique: simple, interrupted
[2023-01-07] MEDS: Lidocaine/Epinephri/Tetracaine Topical Gel 3 ML TP (11:22)
== END 2023-01-07 12:36 | disposition home or self-care (01) ==
PROVIDERS: Emergency Provider Student in an Organized Health Care Education/Training Program; PCP Neuromusculoskeletal Medicine & OMM
DX: S61.213A Laceration without foreign body of left middle finger without damage to nail, initial encounter (principal); W25.XXXA Contact with sharp glass, initial encounter
CPT/HCPCS: 12001

== ENCOUNTER 2023-02-17 08:12 | Outpatient (CLI) | payer MEDICAID, SELFPAY ==
--- NOTE | 2023-02-17 06:00 | DI.RAD_ITS ---
Exam(s) XR PAIN CLINIC LUMBAR SP 2V EXAM: XR PAIN CLINIC LUMBAR SP 2V CLINICAL HISTORY: DX: Lumbar Spondylosis. TECHNIQUE: Fluoroscopy was provided for the referring physician for guidance with performing pain cl inic injection procedure. COMPARISON: No exams were available for comparison FINDINGS: Please see procedure note for details. Fluoro time: 81.3 seconds RADIATION DOSE DELIVERED: nelson Tapia=44.03 mGy
[2023-02-17 08:27] VITALS: BP 172/87; PULSE 88; RESP 20; TEMP 36.3; O2SAT 97
[2023-02-17] MEDS: fentaNYL 100 MCG/2 ML VIAL IVP (08:58)
[2023-02-17] MEDS: Midazolam 2 MG/2 ML VIAL IVP (08:58)
[2023-02-17] MEDS: Lactated Ringers 500 ML 80 ML IV ×2 (08:59→09:19)
--- NOTE | 2023-02-17 09:41 | PDOC.PAIN_ITS ---
Date of service: 02/17/23 Time of Service: 09:41 Pain Managment Procedure Note Procedure Note Procedure Note: PROCEDURE NOTE BILATERAL LUMBAR RADIOFREQUENCY ABLATION Date of Service: February 17, 2023 Patient:Rox Tillman? Provider:? Horacio Mayo DO, MPH Rox Cervantes [facility]ilateral Lumbar Radiofrequency Ablation with the AvVozeemes Machine.? Pre Operative Diagnosis: Lumbosacral Spondylosis without Myelopathy Post Operative Diagnosis: Same Pre procedure pain; VAS= 8/10 Comments: Her last RFA at these levels was on 05/14/2022. She had >6 months of at least 50% pain relief. PROCEDURE: Radiofrequency Ablation of medial branches - bilateral L3, L4, L5 and lateral branches of bilateral S1. Rox?was interviewed and the medical record was reviewed.? There were no medical, pharmacologic, radiographic or other structural contraindications to attempting fluoroscopically guided BILATERAL Lumbar Radiofrequency Ablation.?Risks and expected side effects as well as potential benefit of the procedure were reviewed with Rox, and the patient's voiced concerns were addressed.? The printed consent form was signed.? Standard time-out procedure was performed. Rox was brought into the fluoroscopy suite and positioned into the prone position on the fluoroscopy table and allowed to adjust to a position of comfort. A grounding pad was placed on the left abdomen. The sterile field was prepared using chlorhexidine preparation of the skin and sterile draping. Local anesthesia superficial and deep was provided by local infiltration of 2% lidocaine. A 17g 100 mm radiofrequency introducer needle was placed to the planned anatomic targets guided with intermittent fluoroscopy with a perpendicular approach to terminally place at the junction of the superior articular process and the transverse process of the bilateral L4, L5, the base of the sacral ala on the bilateral for the L5 medial branch nerve and the area between base of the sacral ala to the S1 foramen bilaterally. The stylets were removed and radiofrequency probes with a 4mm active tip were then inserted. Needle tip position of the probes was verified in the AP, oblique, and lateral views. At each site, the medial branch nerve was stimulated at 2 Hz to a maximum 1-2 volts determined to finalize safe needle and electrode placement. The patient was awake and responsive during this portion of the procedure. Each target was anesthetized with 1-2 mL of 2 % Lidocaine for anesthesia for lesioning and then each target was lesioned at 80 degrees Celsius for 2 minutes and 30 seconds. Tissue impedances were noted to be between 250 and 500 Ohms. There was no unusual discomfort expressed by Rox. The needles were withdrawn without difficulty and bandages placed over the needle placement sites, the patient was observed and was without hemodynamic, neurologic, or allergic reactions. Fluoroscopic images were digitally archived. POST PROCEDURE EVALUATION: IMPRESSION: 1. Summary of procedure. Medication given is documented in the MAR. 2. Follow up plan: Rox to contact [facility] as needed.?This procedure may be repeated if the patient achieves at least 50% improvement in pain/function for at least 6 months. 3. Estimated Blood Loss: <5 mls 4. Fluoroscopy time: Documented in the EMR. Follow up plans and appointments were discussed with the Rox. Post procedure instruction was given as documented in nursing documentation and having met d ischarge criteria, Rox was discharged from the [facility]. COMMENTS: No apparent complications. Post-procedure pain: VAS= 5/10. I personally completed the entire procedure. HORACIO MAYO DO, MPH ABPM&R - Subspecialty board certification in Pain Medicine [facility]
[2023-02-17] MEDS: methylPREDNISolone ACETATE 40 MG/ML VIAL IJ (09:56)
[2023-02-17] MEDS: Bupivacaine 0.5% Pres-Free 10 ML VIAL IJ (09:56)
[2023-02-17] MEDS: Lidocaine 2% Pres-Free 5 ML VIAL IJ (09:56)
== END 2023-02-17 08:13 | disposition home or self-care (01) ==
LOC: PC 08:13
PROVIDERS: PCP Neuromusculoskeletal Medicine & OMM; Visit Provider Preventive Medicine Occupational Medicine
DX: M47.817 Spondylosis without myelopathy or radiculopathy, lumbosacral region (principal)
CPT/HCPCS: 64635; 64636; 72100; J1030; J2250; J3010

== ENCOUNTER 2023-06-21 05:01 | Outpatient (CLI) | payer MEDICAID, SELFPAY ==
[2023-06-21 15:27] LABS: HCT 45.2 % (36.0-46.0); HGB 14.6 g/dL (11.2-15.7); MCH 29.2 pg (27.0-33.0); MCHC 32.3 % (32.0-36.0); MCV 90 fL (80-95); MPV 10.2 fL (8.0-11.0); Platelet Count 249 10^3/uL (130-400); RDW 13.9 % (11.7-14.6); RDW-SD 46.3 fL; WBC 12.99 10^3/uL (4.4-10.8)
[2023-06-21 16:12] LABS: BUN 14 mg/dL (7-18); CREATININE 0.7 mg/dL (0.55-1.02); Calcium 9.6 mg/dL (8.5-10.1); Chloride 105 mmol/L (98-107); Estimated GFR 100.19 (mL/min/1.73m2); Glucose 103 mg/dL (74-106); Potassium 4.2 mmol/L (3.5-5.1); Sodium 140 mmol/L (136-145)
== END 2023-06-21 05:02 | disposition home or self-care (01) ==
LOC: LBO 05:01
PROVIDERS: PCP Neuromusculoskeletal Medicine & OMM; Visit Provider Student in an Organized Health Care Education/Training Program
DX: M16.11 Unilateral primary osteoarthritis, right hip (principal); M16.12 Unilateral primary osteoarthritis, left hip; Z01.818 Encounter for other preprocedural examination
CPT/HCPCS: 36415; 80048; 85027; 86850; 86900; 86901

== ENCOUNTER 2023-06-21 14:15 | Outpatient (CLI) | payer MEDICAID, SELFPAY ==
--- NOTE | 2023-06-21 13:46 | DI.RAD_ITS ---
Exam(s) XR PELVIS AP EXAM: XR PELVIS AP CLINICAL HISTORY: bilateral hip DJD. TECHNIQUE: 2D digital imaging was performed. Single AP view. COMPARISON: CR XR HIP PELVIS ADULT BL from 04/20/2022 FINDINGS: BONES: No acute fracture is present. No bony destructive lesion is seen. Spurring at the greater tr ochanters. JOINTS: No dislocation present. Severe narrowing of both hip joint spaces and prominent periarticular spurring. The findings have progressed somewhat since the previous exam. SOFT TISSUE: Normal. IMPRESSION: Severe degenerative changes of both hips. DATA REPOSITORY: RADIATION DOSE DELIVERED:
== END 2023-06-21 14:16 | disposition home or self-care (01) ==
LOC: DIORS 14:15
PROVIDERS: PCP Neuromusculoskeletal Medicine & OMM; Visit Provider Physician Assistant
DX: M16.11 Unilateral primary osteoarthritis, right hip (principal); M16.12 Unilateral primary osteoarthritis, left hip
CPT/HCPCS: 72170

== ENCOUNTER 2023-07-06 06:03 | Day surgery (SDC) | payer MEDICAID, SELFPAY ==
[2023-07-06] VITALS (8 sets, daily range): BP systolic 86–137; BP diastolic 48–70; PULSE 69–82; RESP 13–23; TEMP 36.2–36.6; O2SAT 72–98; BMI 52.7
[2023-07-06] MEDS: Acetaminophen 500 MG TAB 1000 MG PO (06:36)
[2023-07-06] MEDS: Celecoxib 200 MG CAP 400 MG PO (06:36)
[2023-07-06] MEDS: Lactated Ringers 1,000 ML 80 ML IV (06:53)
--- NOTE | 2023-07-06 07:24 | PDOC.DSDIS_ITS ---
Date of service: 07/06/23 Time of Service: 14:46 Discharge Plan Disposition Patient Disposition: Home Condition: Good Discharge Details Reason For Visit: Bilateral hip DJD Attending Provider: Marcel Greer Primary Care Provider: Percy Roche [place] Meds and New Rx's Prescriptions: New acetaminophen 500 mg tablet 1,000 mg PO Q8H PRN Qty: 90 0RF Rx Instructions: Take two tablets up to every 8 hours as needed for pain aspirin 81 mg tablet,delayed release (DR/EC) 81 mg PO BID 30 Days Qty: 60 0RF celecoxib [Celebrex] 200 mg capsule 200 mg PO BID PRNQty: 60 0RF Rx Instructions: Take one tablet twice daily for pain and inflammation dexamethasone 4 mg tablet 4 mg PO DAILY Qty: 2 0RF Rx Instructions: Take one tablet once daily for two days docusate sodium [Colace] 100 mg capsule 100 mg PO BID Qty: 30 0RF pantoprazole 40 mg tablet,delayed release (DR/EC) 40 mg PO DAILY Qty: 14 0RF oxycodone 5 mg tablet 5 mg PO Q6H PRNQty: 12 0RF Rx Instructions: Take one tablet up to every 6 hours as needed for severe postoperative pain Continued gabapentin 100 mg capsule See Rx Instructions PO QHS Rx Instructions: 100-300mg orally every day at bedtime; sertraline 100 mg tablet 150 mg PO DAILY tramadol 50 mg tablet 50 mg PO Q12H PRN magnesium 250 mg tablet 500 mg PO DAILY losartan 25 mg tablet 25 mg PO DAILY Discontinued naproxen sodium [Aleve] 220 mg tablet 440 mg PO DAILY PRN acetaminophen [Acetaminophen Extra Strength] 500 MG tablet 500 mg PO Q4H PRN PRN (Reason: Pain) Qty: 30 0RF Discharge Instructions Additional Instructions: Total Hip Discharge Instructions Activity: The most important activity is to walk. You should try to take short walks a few times a day. You have no restrictions on movement or positioning, but do not try to force what you do. You will find some stiffness and weakness with hip flexion (lifting your knee). Do not try to strengthen this too early, continue to practice walking and stairs and this will come. - Outpatient physical therapy can be helpful to help return you to a normal gait and improve your flexibility and strength. This can start around 2 weeks. For some patients, it?s not necessary. Usually this is determined at the time of discharge or at the first post-operative visit. - You should wear the RENE hose on both legs for 2 weeks. Dressing: Keep the surgical dressing in place for at least one week. After the first week it may be removed and replace with light gauze and tape or nothing. It may get wet after 3 days but avoid soaking the dressing. If it gets wet, just lightly pat dry. It is important to always keep some gauze between skin folds, especially when you are sitting. Spend some time with the wound exposed when you are lying flat as the incision does wrinkle onto itself. Medications: - You should take Tylenol and an anti-inflammatory Celebrex as your primary pain control medications. If the Celebrex is too expensive or not covered, please call the office for another alternative (Advil/Ibuprofen or Naproxen/Aleve). - You have been prescribed a stronger pain medication Oxycodone for breakthrough pain, take as needed as prescribed. - You have also been prescribed a stomach acid reduction agent Pantoprozole to help reduce stomach acid and reflux. - You have also been prescribed Decadron to help with post-operative nausea and pain. You will take this for two days starting tomorrow. - You will be taking Aspirin 81mg twice a day for DVT prevention unless instructed otherwise. - If you have constipation you should take Colace (which has been prescribed) or Miralax (which is available [id number]). It takes most people 3-4 days to have a bowel movement. Follow-up: 2 weeks July 19, 2023 @ 11:00am If you have any acute concerns or questions, please do not hesitate to contact the office at [phone]. You may contact Dr. Greer with any questions after hours through the hospital at [phone] or on his cell phone at [phone]. Stand Alone Forms: Anesthesia Discharge Inst., Fawn Haney (U) Referrals: Marcel Greer MD [ [facility] STAFF PHYSICIAN] - 07/19/23 11:00 am Equipment/Supplies: Walker Activity:: Elevate Remove Dressings/Wound Care:: Do Not Remove Shower/Bathe:: Cover Diet:: As Tolerated Discharge Orders Discharge Orders: Discharge Order (Routine); Ordered 07/06/23 Ordered By: Ema Patten
--- NOTE | 2023-07-06 07:24 | W.ANESPRE ---
General Info Date of Service Date Performed: 07/06/23 Height: 4 ft 11 in Weight: 118.388 kg Body Mass Index (BMI): 52.7 Surgical Procedure: Operation Date: 07/06/23 08:00 Proposed Procedure Side Surgeon p Hip Total Hip Anterior Bilateral Bilateral Marcel Greer MD Meds Allergies and Home Medications Allergies Allergy/AdvReac Type Severity Reaction Status Date / Time meperidine HCl [From Demerol] Allergy Intermediate Hives Verified 07/06/23 06:22 diphenhydramine HCl Allergy Mild Skin Rash Verified 07/06/23 06:22 [From Benadryl] aspirin Allergy Hives Verified 07/06/23 06:22 cyclobenzaprine HCl Allergy Hives Verified 07/06/23 06:22 [From Flexeril] Home Medication Medication Instructions Recorded acetaminophen 500 mg tablet 500 mg PO Q4H PRN PRN Pain #30 tabs 08/27/12 (Acetaminophen Extra Strength) sertraline 100 mg tablet 150 mg PO DAILY 03/20/22 tramadol 50 mg tablet 50 mg PO Q12H PRN 03/20/22 gabapentin 100 mg capsule See Rx Instructions PO QHS 12/04/22 magnesium 250 mg tablet 500 mg PO DAILY 12/04/22 naproxen sodium 220 mg tablet 440 mg PO DAILY PRN 12/04/22 (Aleve) losartan 25 mg tablet 25 mg PO DAILY 06/07/23 Current Visit Medications: Current Medications Generic Name Dose Route Start Last Admin Trade Name Freq PRN Reason Stop Dose Admin Acetaminophen 1,000 mg 07/06/23 06:00 07/06/23 06:36 Acetaminophen 500 Mg Tab PO 08/05/23 05:59 1,000 mg PREOP TRAN Administration Celecoxib 400 mg 07/06/23 06:00 07/06/23 06:36 Celecoxib 200 Mg Cap PO 08/05/23 05:59 400 mg PREOP TRAN Administration Hydromorphone HCl 0.5 mg 07/06/23 07:20 Hydromorphone 2 Mg/Ml Syr IVP 08/05/23 07:19 Q2H PRN PRN Tranexamic Acid 1,000 mg/ 60 mls @ 360 mls/hr 07/06/23 06:00 Sodium Chloride IV 08/05/23 05:59 PREOP TRAN Tranexamic Acid 1,000 mg/ 60 mls @ 360 mls/hr 07/06/23 06:00 Sodium Chloride IV 08/05/23 05:59 DIRECTED TRAN Ringer's Solution 1,000 mls @ 80 mls/hr 07/06/23 06:00 07/06/23 06:53 IV 07/06/23 23:59 80 mls/hr INFUSION TRAN Administration Cefazolin Sodium/Dextrose 2 gm in 50 mls @ 100 mls/hr 07/06/23 06:00 Ancef Duplex IVPB 07/06/23 23:59 PREOP TRAN Cefazolin Sodium/Dextrose 1 gm in 50 mls @ 100 mls/hr 07/06/23 08:00 Ancef Duplex IVPB 07/07/23 00:29 Q8H TRAN IV Miscellaneous Supplies 1 each 07/06/23 06:00 Iv Access IV 07/06/23 23:59 DIRECTED TRAN Ondansetron HCl 4 mg 07/06/23 07:20 Ondansetron 4 Mg/2 Ml Vial IVP 08/05/23 07:19 Q6H PRN PRN Nausea Oxycodone HCl 0 mg 07/06/23 07:20 Oxycodone 5 Mg Tab PO 08/05/23 07:19 Q3H PRN PRN Pain Sodium Chloride 0 ml 07/06/23 06:00 Normal Saline Flush 10 Ml Syr IV 07/06/23 23:59 PRN PRN Sodium Chloride 0 ml 07/06/23 06:00 Normal Saline 10 Ml Vial IJ 07/06/23 23:59 DIRECTED PRN Sterile Water 0 ml 07/06/23 06:00 Water,Injection,Sterile 10 Ml Vial IJ 07/06/23 23:59 DIRECTED PRN PFSH Active Problems Active Problems: Problem Status Onset Code Anxiety F41.9 JULIO (obstructive sleep apnea) G47.33 Pain disorder associated with psychological and physical factors F45.42 Chronic pain G89.29 Psychological and behavioral factors associated with disorders or diseases classified elsewhere F54 Degenerative joint disease of right hip M16.11 Degenerative joint disease of left hip M16.12 Lumbosacral spondylosis without myelopathy M47.817 Chronic pain syndrome G89.4 Osteoarthritis of knees, 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 Encounter for Pap smear of cervix with HPV DNA cotesting Z12.4 IUD surveillance Z30.431 Counseling for hormone replacement therapy Z71.89 Well woman exam Z01.419 Medical History Medical History Snoring Sciatica Plantar fascial fibromatosis Obesity Knee pain Insomnia Idiopathic osteoarthritis Hyperlipidemia Hip pain Ganglion and cyst of synovium, tendon and bursa Depressive disorder Deformity Carpal tunnel syndrome Calcaneal spur of right foot Arthropathy Surgical History Surgical History Ganglion cyst of finger of right hand Achilles tendonitis osteotomy and tendon repair - left Status post carpal tunnel release of both wrists Status post cholecystectomy Status post tubal ligation History of section Tobacco Smoking/Tobacco Use Status: Former Tobacco Use Alcohol Alcohol Intake: current Alcohol intake frequency: holidays/special occasions only Alcohol type: wine Substance Use Substance use: Never Substance use type: does not use Vital Signs and Lab Results Vital Signs Most Recent Vital Signs in EMR: Most Recent Vital Signs Temp Pulse Resp BP Pulse Ox 36.6 C 82 16 137/66 98 07/06/23 06:41 07/06/23 06:41 07/06/23 06:41 07/06/23 06:41 07/06/23 06:41 Lab Results Blood Type / Crossmatch: Patient ABO/Rh AB Positive 06/21/23 Antibody Screen NEGATIVE 06/21/23 Complete Blood Count: White Blood Count 12.99 10^3/uL (4.4-10.8) H 06/21/23 14:58 Red Blood Count 5.00 10^6/uL (3.93-5.22) 06/21/23 14:58 Hemoglobin 14.6 g/dL (11.2-15.7) 06/21/23 14:58 Hematocrit 45.2 % (36.0-46.0) 06/21/23 14:58 Platelet Count 249 10^3/uL (130-400) 06/21/23 14:58 Complete Metabolic Panel: Sodium 140 mmol/L (136-145) 06/21/23 14:58 Potassium 4.2 mmol/L (3.5-5.1) 06/21/23 14:58 Chloride 105 mmol/L (98-107) 06/21/23 14:58 Carbon Dioxide 27.0 mmol/L (21.0-32.0) 06/21/23 14:58 BUN 14 mg/dL (7-18) 06/21/23 14:58 Creatinine 0.7 mg/dL (0.55-1.02) 06/21/23 14:58 Est GFR (CKD-EPI 2020) 100.19 (mL/min/1.73m2) 06/21/23 14:58 Calcium 9.6 mg/dL (8.5-10.1) 06/21/23 14:58 Glucose 103 mg/dL (74-106) 06/21/23 14:58 Liver Function Panel: No Data to Display Coagulation Panel: No Data to Display Cardiac Panel: No Data to Display Arterial Blood Gas: No Data to Display Venous Blood Gas: No Data to Display Pancreas Panel: No Data to Display Thyroid Panel: No Data to Display Infectious Disease: No Data to Display Blood Cultures: No Data to Display Toxicology Panel: No Data to Display Anesthesia Assessment and Plan Anesthesia History Personal History: No History of Anesthesia Complications Family History: No Family History of Anesthesia Complications Exercise Tolerance Exercise Tolerance: Metabolic Equivalents<4 Pertinent Negatives Pertinent Negatives: No Symptoms of GERD, No Major Cardiovascular Symptoms or Complaints, No Major Pulmonary Symptoms or Complaints and No History of CVA/TIA Cardiac & Pulmonary Exam Cardiac Exam: Normal S1/S2 Heart Sounds Pulmonary Exam: Clear Bilateral Breath Sounds Implantable Cardiac Device Does patient have a Pacemaker or an ICD?: No Airway Exam Known Difficult Airway: No Mallampati Class: 3 Mouth Opening: Normal (> 3cm) Thyromental Distance: Less than 3 cm Neck Range of Motion: Full ROM Neck Circumference: Thick Teeth Condition: Normal Dentition ASA Classification ASA Score: ASA 3 Emergency Case?: No NPO Status NPO Status: NPO Clears >2 hours, Solids >8 hours Anesthesia Plan Resuscitation Status: Full Code Anesthesia Technique: Spinal Anesthesia Airway Planned: Natural Airway Monitors Used: Standard Monitors
[2023-07-06] MEDS: ceFAZolin 2 GM/50 ML BAG IVPB (08:07)
--- NOTE | 2023-07-06 09:38 | DI.RAD_ITS ---
Exam(s) XR HIP RT IN OR EXAM: XR HIP RT IN OR CLINICAL HISTORY: OA. TECHNIQUE: 2D digital imaging was performed. COMPARISON: No exams were available for comparison FINDINGS: Fluoroscopy provided during right hip arthroplasty. Please see procedure report for details. Total fluoroscopy time 50 seconds. IMPRESSION: Radiation exposure index/cumulative dose: [place]= 14.967 mGy DATA REPOSITORY: RADIATION DOSE DELIVERED:
--- NOTE | 2023-07-06 09:45 | ROE_ITS ---
Date of service: 07/06/23 Time of Service: 08:00 Operative Note Operative Note DATE OF PROCEDURE: 07/06/23 PRE-OP DIAGNOSIS: Bilateral Hip Osteoarthritis POST-OP DIAGNOSIS: same PROCEDURE: Bilateral Anterior Total Hip Arthroplasty with Intraoperative Navigation SURGEON: Marcel Greer SECOND COOK AND BAKER: Ema Patten ANESTHESIA TYPE: Spinal Refer to Anesthesia Record ESTIMATED BLOOD LOSS: 400 PATHOLOGY: none sent COMPLICATIONS: None Patient was transported to: PACU Patient's condition: stable Implants: RIGHT: 1. Depuy [place] Acetabular Component, 48mm 2. Depuy Acetabular Liner, [id number] 3. Depuy Actis Standard Femoral Stem, Size 3 4. Depuy Altrx Ceramic Femoral Head, Size 32+1mm LEFT: 1. Depuy [place] Acetabular Component, 48mm 2. Depuy Acetabular Liner, [id number] 3. Depuy Actis Femoral Stem, Size 2 4. Depuy Altrx Ceramic Femoral Head, Size 32+1mm Indications: I have seen Rox in clinic for symptoms of hip arthritis, confirmed with radiographic findings. She has exhausted nonoperative methods and was having significant limitations in daily function and desired better function and less pain. I discussed the technical details of a hip replacement. I explained the risks of the procedure to include, but not limited to, bleeding, infection, pain, stiffness, fracture, damage to nerves and vessels, damage to muscles and tendons, loosening, instability, leg length inequality, need for repeat procedure, blood clot and cardiopulmonary demise. Despite these risks, Rox elected to proceed. Findings: There was significant signs of arthritis throughout both hips with complete loss of cartilage and large osteophytes. Procedure Description: Rox was greeted in the preoperative holding area where the correct side was identified and marked. The consent was reviewed with the patient and signed. The history and physical was updated. All questions were answered. She was taken back to the operating room. A spinal anesthestic was then administered. The patient was placed into the supine position on the HANA table. Both feet were wrapped with Webrill cotton wrap along with Coban. RIGHT Side The feet were placed in specialized boots for the HANA table, well seated within the boot and secured. SCDs were applied. The patient was then slid down onto a peroneal post. A preoperative AP hip was obtained to serve as a reference for determining leg lengths. Prophylactic antibiotics in the form of Cefazolin were administered. 1g of Tranxemic Acid was given intravenously within 30 min utes of incision. The right leg was then prepped with Chloraprep and draped in a standard fashion. A second prep with Chloraprep was performed prior to placement of a shower-curtain type drape with Iodine impregnated skin protection. A timeout to confirm correct identity, side and site, procedure, allergies, anesthesia, and medical concerns was performed. An obliquely oriented incision was made starting lateral to the ASIS and running distal over the Tensor Fascia Flor (TFL) muscle belly toward the fibular head, approximately 10cm. The skin and soft tissue was dissected sharply, through S carpa?s fascia, and to the fascia of the TFL. With the fascia and superior border of the IT band identified, the fascia was incised with a new knife just above any perforators from the IT band. The TFL muscle belly was bluntly dissected away from the fascia and moved laterally. The fat between TFL and rectus was identified to ensure the dissection was not within the TFL. Blunt dissection created space between abductors and the capsule and retractor was placed over the lateral femoral neck. The fibers of the rectus femoris tendon were identified and these were freed from the anterior capsule. A second cobra retractor was placed around the medial femoral neck. The TFL was further retracted laterally to show the deep fascia. Careful dissection through this layer identified three main crossing vessels of the lateral femoral circumflex. These were cauterized in multiple locations and then cut without any noticeable bleeding. The TFL was further released bluntly from the deep fascia to expose anterior hip capsule and fat The Arthur orthopaedic retractor was then placed beneath the TFL and against sartorius and medial soft tissues to protect and retract the soft tissues. A T-capsulotomy was then performed starting at the superior lateral acetabulum and moving distally to the intertrochanteric ridge. These capsular flaps were tagged with a No. 1 Ethibond and elevated from within. The capsular flaps were released to the shoulder of the lateral neck and to the lesser trochanter to give excellent visualization of the proximal femur. A neck osteotomy was performed using an oscillating saw based on preoperative templates. This cut started in the shoulder and of the lateral neck and exited medially. The saw was at all times directed medially to avoid injury to the greater trochanter. Gentle traction was applied to the leg and the osteotomy opened. The femoral head was removed with a corkscrew, making sure to protect the TFL on its exit. This was measured on the back table to determing the starting reamer size. Portions of the rectus obscuring visualization were minimally elevated off the superior acetabulum. An anterior retractor was placed over the anterior wall between capsule and labrum and attached to the Gripper retraction system. A posterior retractor was placed similarly. This provided excellent visualization. The contents of the cotyloid fossa were removed with electrocautery and the labrum was removed with a knife. There was a notable floor osteophyte. There was significant chondromalacia of the superior acetabulum. Acetabular reaming began with a 43mm reamer. This first reaming was directed anterior to posterior and medial to get down to the true floor. This was inspected and reamed until the true floor was reached. The anterior retractor was then released and entry and exit was provided by traction on the capsular flaps. I then reamed sequentially up to a 47mm reamer where good fit was obtained. The larger reamers were oriented based on anatomical reference of the anterior and lateral rice to ensure proper abduction and anteversion. Positioning and size was confirmed with the fluoroscopy. A 48mm Depuy [place] acetabular component was selected. The acetabulum was reamed around the periphery with the selected acetabular size to prevent a rim fit. The deep tissues were irrigated. The acetabular component was then impacted in a position of about 40-45 degrees of abduction and 15-20 degrees of anteversion, using the patient?s anatomy as the ultimate landmark. Fluoroscopy was used to confirm this. There was excellent motor vehicle license clerk of the acetabular component and the inserting handle was removed. The acetabular liner, Depuy [id number] polyethylene liner, was inserted and lined up with the tines of the acetabular component. There was no soft tissue interposition. The liner was then impacted into position and confirmed to be well-seated. A portion of the jessica-articular cocktail was then injected around the acetabulum into the capsule and periosteum. This cocktail consisted of 123mg of Ropivacaine, 0.25mg of Epinephrine, 0.04mg of Clonidine, and 15mg of Ketorolac, diluted to 50cc. Traction was released from the femur. The leg was rotated to 120 degrees. Any remaining medial capsule was released until the lesser trochanter was easily palpable. A Solano retractor was placed medially. The lateral capsule was further released into the shoulder to allow access to the greater trochanter. A Solano retractor was placed over the greater trochanter which allowed the trochanter to flip in front of the capsule for excellent exposure. The leg was brought down into maximal extension and 20 degrees of adduction while ensuring there was no impingement on the acetabulum. Any remnant capsule within the trochanter was released. Piriformis and obturator externis were identified and protected. There was excellent access to the proximal femur. The lateral neck remnant was removed with a rongeur. A blunt canal probe was used to identify the canal and trajectory for later broaching. A box osteotome initiated the broach course. A small curved rasp and a curved curette were used to work laterally. Broaching then began with a size 0 Actis broach. This was inserted manually around the trochanter and into the canal before mallet blows. The broach was seated to a few millimeters below the cut level based on the neck cut and the preoperative template. Sequential broaching was continued with the HangItse pneumatic broaching device until a tight fit was obtained with good rotational control of the femur. A trial standard neck was inserted along with a +1 trial head. The leg was brought out of extension and adduction and then reduced with traction and internal rotation. The leg was stable anteriorly in a position of 30 degrees of extension and 90 degrees of external rotation. Fluoroscopy was used to ensure there was no fracture and the stem was seated well. Leg lengths were checked with an AP pelvis and pelvic reference points. [employer] X-Ray navigation system was used to confirm appropriate positioning and leg length and offset. Once content with the desired offset and leg lengths, the leg was brought back into extension, external rotation and adduction. The periosteum and surrounding tissue was injected with remaining portion of the jessica-articular cocktail. The proximal femur was irrigated as well as the deep tissues. The Depuy Actis standard stem, size 3, was then manually inserted into the proximal femur making sure to control rotation. It was then malleted into position with light blows, giving breaks to allow bone expansion and decrease risk of fracture. The selected Depuy Altrx Ceramic Head, size 32+1mm, was then placed onto the clean and dry trunnion and secured with impaction onto the tapered fit. The leg was brought back out of extension and adduction and reduced with traction and internal rotation. Stability was confirmed with no shuck at 90 degrees of external rotation and 30 degrees of extension. No impingement through range of motion arc. Final x-ray images were obtained with fluoroscopy to confirm adequate positioning and no intraoperative fracture. The deep tissues were thoroughly irrigated with Irrisept chlorhexadine solution. The second dose of TXA 1g was administered intravenously.The capsule was then reapproximated with the previously placed Ethibond sutures. The TFL fascia was finally closed with a No. 2 Stratafix, barbed suture. Deep tissues were then reapproximated with 0 Vicryl and a running 2-0 Vicryl. The skin was closed with a running 4-0 Monocryl in a subcuticular fashion. This was reinforced with skin glue. A Mepilex silver dressing was applied. LEFT Side Keeping the back table sterile, the drapes were removed, light handles changed, and fluoroscopy switched rooms sides. Once again, a AP hip was obtained to serve as a reference for determining leg lengths. The left leg was then prepped with Chloraprep and draped in a standard fashion. A second prep with Chloraprep was performed prior to placement of a shower-curtain type drape with Iodine imp regnated skin protection. A timeout was once again performed to ensure that there were no issues to proceed. An obliquely oriented incision was made starting lateral to the ASIS and running distal over the Tensor Fascia Flor (TFL) muscle belly toward the fibular head, approximately 10cm. The skin and soft tissue was dissected sharply, through Annabel?s fascia, and to the fascia of the TFL. With the fascia and superior border of the IT band identified, the fascia was incised with a new knife just above any perforators from the IT band. The TFL muscle belly was bluntly dissected away from the fascia and moved laterally. The fat between TFL and rectus was identified to ensure the dissection was not within the TFL. Blunt dissection created space between abductors and the capsule and retractor was placed over the lateral femoral neck. The fibers of the rectus femoris tendon were identified and these were freed from the anterior capsule. A second cobra retractor was placed around the medial femoral neck. The TFL was further retracted laterally to show the deep fascia. Careful dissection through this layer identified three main crossing vessels of the lateral femoral circumflex. These were cauterized in multiple locations and then cut without any noticeable bleeding. The TFL was further released bluntly from the deep fascia to expose anterior hip capsule and fat The Arthur orthopaedic retractor was then placed beneath the TFL and against sartorius and medial soft tissues to protect and retract the soft tissues. A T-capsulotomy was then performed starting at the superior lateral acetabulum and moving distally to the intertrochanteric ridge. These capsular flaps were tagged with a No. 1 Ethibond and elevated from within. The capsular flaps were released to the shoulder of the lateral neck and to the lesser trochanter to give excellent visualization of the proximal femur. A neck osteotomy was performed using an oscillating saw based on preoperative templates. This cut started in the shoulder and of the lateral neck and exited medially. The saw was at all times directed medially to avoid injury to the greater trochanter. Gentle traction was applied to the leg and the osteotomy opened. The femoral head was removed with a corkscrew, making sure to protect the TFL on its exit. This was measured on the back table to determing the starting reamer size. Portions of the rectus obscuring visualization were minimally elevated off the superior acetabulum. An anterior retractor was placed over the anterior wall between capsule and labrum and attached to the Gripper retraction system. A posterior retractor was placed similarly. This provided excellent visualization. The contents of the cotyloid fossa were removed with electrocautery and the labrum was removed with a knife. There was a notable floor osteophyte. There was significant chondromalacia of the superior acetabulum. Acetabular reaming began with a 44mm reamer. This first reaming was directed anterior to posterior and medial to get down to the true floor. This was inspected and reamed until the true floor was reached. The anterior retractor was then released and entry and exit was provided by traction on the capsular flaps. I then reamed sequentially up to a 48mm reamer where good fit was obtained. The larger reamers were oriented based on anatomical reference of the anterior and lateral rice to ensure proper abduction and anteversion. Positioning and size was confirmed with the fluoroscopy. A 48mm Depuy [place] acetabular component was selected. The acetabulum was reamed around the periphery with the selected acetabular size to prevent a rim fit. The deep tissues were irrigated. The acetabular component was then impacted in a position of about 40-45 degrees of abduction and 15-20 degrees of anteversion, using the patient?s anatomy as the ultimate landmark. Fluoroscopy was used to confirm this. There was excellent motor vehicle license clerk of the acetabular component and the inserting handle was removed. The acetabular liner, Depuy [id number] polyethylene liner, was inserted and lined up with the tines of the acetabular component. There was no soft tissue inte rposition. The liner was then impacted into position and confirmed to be well- seated. A portion of the jessica-articular cocktail was then injected around the acetabulum into the capsule and periosteum. This cocktail consisted of 123mg of Ropivacaine, 0.25mg of Epinephrine, 0.04mg of Clonidine, and 15mg of Ketorolac, diluted to 50cc. Traction was released from the femur. The leg was rotated to 120 degrees. Any remaining medial capsule was released until the lesser trochanter was easily palpable. A Solano retractor was placed medially. The lateral capsule was further released into the shoulder to allow access to the greater trochanter. A Solano retractor was placed over the greater trochanter which allowed the trochanter to flip in front of the capsule for excellent exposure. The leg was brought down into maximal extension and 20 degrees of adduction while ensuring there was no impingement on the acetabulum. Any remnant capsule within the trochanter was released. Piriformis and obturator externis were identified and protected. There was excellent access to the proximal femur. The lateral neck remnant was removed with a rongeur. A blunt canal probe was used to identify the canal and trajectory for later broaching. A box osteotome initiated the broach course. A small curved rasp and a curved curette were used to work laterally. Broaching then began with a size 0 Actis broach. This was inserted manually around the trochanter and into the canal before mallet blows. The broach was seated to the neck cut level based on the neck cut and the preoperative template. Sequential broaching was continued with the [employer] pneumatic broaching device until a tight fit was obtained with good rotational control of the femur. A trial standard neck was inserted along with a +1 trial head. The leg was brought out of extension and adduction and then reduced with traction and internal rotation. The leg was stable anteriorly in a position of 30 degrees of extension and 90 degrees of external rotation. Fluoroscopy was used to ensure there was no fracture and the stem was seated well. Leg lengths were checked with an AP pelvis and pelvic reference points. [employer] X-Ray navigation system was used to confirm appropriate positioning and leg length and offset. Once content with the desired offset and leg lengths, the leg was brought back into extension, external rotation and adduction. The periosteum and surrounding tissue was injected with remaining portion of the jessica-articular cocktail. The proximal femur was irrigated as well as the deep tissues. The QPDuy SmartHubune standard collared stem, size 2, was then manually inserted into the proximal femur making sure to control rotation. It was then malleted into position with light blows, giving breaks to allow bone expansion and decrease risk of fracture. The selected Depuy Altrx Ceramic Head, size 32+1mm, was then placed onto the clean and dry trunnion and secured with impaction onto the tapered fit. The leg was brought back out of extension and adduction and reduced with traction and internal rotation. Stability was confirmed with no shuck at 90 degrees of external rotation and 30 degrees of extension. No impingement through range of motion arc. Final x-ray images were obtained with fluoroscopy to confirm adequate positioning and no intraoperative fracture. The deep tissues were thoroughly irrigated with Irrisept chlorhexadine solution. The capsule was then reapproximated with the previously placed Ethibond sutures. The TFL fascia was finally closed with a No. 2 Stratafix, barbed suture. Deep tissues were then reapproximated with 0 Vicryl and a running 2-0 Vicryl. The skin was closed with a running 4-0 Monocryl in a subcuticular fashion. This was reinforced with skin glue. A Mepilex silver dressing was applied. At the end of the case, all counts were correct. Rox was transferred to the hospital bed without difficulty and suffering no apparent complication. Rox has a good prognosis. Physical therapy will start today and without restrictions, weight-bearing as tolerated. Aspirin 81mg BID will be used for DVT prophylaxis.
--- NOTE | 2023-07-06 11:20 | DI.RAD_ITS ---
Exam(s) XR HIP LT IN OR EXAM: XR HIP LT IN OR CLINICAL HISTORY: DJD. TECHNIQUE: 2D digital imaging was performed. COMPARISON: No exams were available for comparison FINDINGS: Fluoroscopy provided during left hip arthroplasty. See procedure report for details. Total fluoroscopy time 64 seconds IMPRESSION: Radiation exposure index/cumulative dose: nelson Tapia= 16.045 mGy DATA REPOSITORY: RADIATION DOSE DELIVERED:
--- NOTE | 2023-07-06 13:05 | IN_ITS ---
PT Notes Visit Reasons: Bilateral hip DJD Physical Therapy Day Surgery Initial Evaluation Date: 07/06/2023 Referring Doctor: GLADIS Phelps PT Orders: PT CONSULT: S/P Ortho Surgery Precautions: WBAT on B LE with AD. Patient Profile/Admitting Diagnosis: Rox is a 57-year-old female with degenerative joint disease of both hips and is status post bilateral total hip arthroplasties on postoperative day 0. PMHX: Medical History (Updated 06/21/23 @ 13:47 by Ema Patten) Snoring Sciatica Plantar fascial fibromatosis Obesity Knee pain Insomnia Idiopathic osteoarthritis Hyperlipidemia Hip pain Ganglion and cyst of synovium, tendon and bursa Depressive disorder Deformity Carpal tunnel syndrome Calcaneal spur of right foot Arthropathy Surgical History (Updated 06/21/23 @ 13:45 by Ema Patten) Ganglion cyst of finger of right hand Achilles tendonitis osteotomy and tendon repair - left Status post carpal tunnel release of both wrists Status post cholecystectomy Status post tubal ligation History of section Social History/Home Situation: Lives with SO in a private home with 3 steps to enter with rails that are far apart. 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 Independent with all aspects of ADLs prior to srugery although has had worsening difficulty with walking due to arthritic progression. Equipment Owned/DME: None Subjective: Burning pain in L hip with walking to 7-8/10. Nurse Lang aware. Still tingly in buttocks. Objective: General Observation: Resting in bed. Mepilex Ag over surgical incision. Cold pack over surgical incision. Mental Status: A and O x 4 Pain: As above ROM: Right Lower Extremity: Hip flexion limited to about 110 due to abdominal pannus. Hip abduction WFL. Knee flexion WFL. Ankle dorsiflexion WFL. Ankle plantarflexion WFL. Left Lower Extremity: Hip flexionl limited to about 100 degrees due to abdominal pannus and pain report. Hip abduction WFL. Knee flexion WFL. Ankle dorsiflexion WFL. Ankle plantarflexion WFL. Strength: Right Lower Extremity: Hip flexors 4-/5. Hip abductors 4-/5. Knee flexors 5/5. Knee extensors 4/5. Ankle dorsiflexors 4/5. Ankle plantarflexors 5/5. Left Lower Extremity:Hip flexors 4-/5. Hip abductors 4-/5. Knee flexors 5/5. Knee extensors 4/5. Ankle dorsiflexors 4/5. Ankle plantarflexors 5/5. Sensation: Residual paresthesia to B gluteal areas, otherwise intact in B LE Bed Mobility/Transfers: Moderate cueing provided for use of B hands as needed for support, movement sequence, AD management, and posture to reduce fall risk and minimize pain report Supine to sit contact guard assist Sit to stand contact guard assist Stand to sit contact guard assist Bed to chair contact guard assist Gait: Facilitated safe and correct performance of level surface ambulation covering a distance of 20 feet + 100 feet +75 feet using FWW with contact guard assist of two early on due to mild buckling on L knee that resolved later on in the walk. Moderate cueing provided for limb advancement, movement sequence, AD management, and posture to reduce fall risk and minimize pain report. Stairs: Guided patient with safe and correct negotiation of 3 x 4 inch steps and 2 x 6 inch steps holding onto bilateral rails with step to gait pattern requiring contact-guard assist of 2 and standby assist outside caregiver for safety with moderate verbal cueing provided for for limb advancement, movement sequence, AD management, and posture to reduce fall risk and minimize pain report. Balance: Static Sitting: Normal Dynamic Sitting: Normal Static Standing: Fair Dynamic Standing: Fair Special Tests: Mobility Limitations Standardized Measure [facility]-P[facility] 6 clicks Basic Mobility Inpatient Short Form: Raw Score: 18 CMS Score: 47% deficit Informed Consent/Education: Patient instructed in purpose of PT consult. Packet containing BRISA exercise protocol has been given to patient. Education and training on initial set of exercises that can be done at home have been completed with patient. Trained patient with correct performance of exercises below to maximize motor control, joint flexibility, soft tissue extensibility of the B hip musculature to facilitate return to independent functional mobility performance. Access Code: [email or web address] URL: [email or web address] Date: 07/06/2022 Prepared by: Natasha Chawla Exercises - Gluteal Sets - 1 x daily - 7 x weekly - 1 sets - 10 reps - 5 hold - Supine Heel Slide - 1 x daily - 7 x weekly - 1 sets - 10 reps - 5 hold - Supine Ankle Pumps - 1 x daily - 7 x weekly - 1 sets - 10 reps - 5 hold - Seated March - 1 x daily - 7 x weekly - 1 sets - 10 reps - 5 hold - Seated Long Arc Quad - 1 x daily - 7 x weekly - 1 sets - 10 reps - 5 hold Assessment: Acute incontinent episode when she stood up for the first time. Little unstable at the start but was able to improve later in the walk. Patient requires contact-guard assist and using front wheeled walker to maximize independence and reduce fall risk. Will have the assistance of significant other Alex as well as her daughters as she recovers at home. Patient presents with clinical signs and symptoms consistent with current/admitting diagnoses that have resulted to mobility limitations, gait instability, generalized weakness, and impairment of motor control as demonstrated by the following impairment level findings: 1. Decreased strength to b hip major muscle groups 2. Impaired standing balance 3. Limitation of joint range of motion in B hips 4. High BMI Impairments are contributing to the following functional limitations: 1. Inability to safely ambulate without assistive device 2. Increase completion time for mobility ADL performance 3. Increased fall risk Patient is assessed as a 15206 moderate complexity based on the following: History: 57-year-old female with impairment level findings, functional hollins itations, and past medical history as indicated above Examination: Demonstrable impairment in strength, balance, and mobility level with underlying impairments and functional limitations as documented above Presentation: Evolving Decision Makin moderate complexity Goals: N/A. PT evaluation and 1-2 treatment sessions only for functional mobility training using recommended AD and for HEP instruction. Plan of Care/Treatment Plan: N/A. PT evaluation and 1-2 treatment session only for functional mobility training using recommended AD and for HEP instruction. DISCHARGE RECOMMENDATIONS: Home when medically cleared by orthopedic surgeon. Recommend outpatient PT services in order to optimize functional mobility outcomes and facilitate return to independent community ambulation without an assistive device. TREATMENT CODE/TIME: 75781 x 20 minutes for 1 unit, 9753 0 x 43 minutes for 3 units (13:05-14:08). Thank you for the opportunity to participate in the care of this patient. Please sign an return this page within 30 days if you agree with the above POC. Thank you! Physician Signature Date [facility] Thank you for the opportunity to participate in the care of this patient. Natasha Chawla PT, DPT, CLT [facility] [place], [place]
--- NOTE | 2023-07-06 15:00 | W.ANESPOSTOP ---
Postoperative Evaluation Date, Time and Location Date Performed: 07/06/23 Time Performed: 13:10 Patient Location: Day Surgery Unit Vital Signs Most Recent Imported Vital Signs: Most Recent Vital Signs Temp Pulse Resp BP Pulse Ox 36.4 C L 79 16 113/55 L 98 07/06/23 13:02 07/06/23 13:02 07/06/23 13:02 07/06/23 13:02 07/06/23 13:02 Pain Score Most Recent Pain Score: Most Recent Pain Score Pain Level 0 07/06/23 13:02 Assessment Mental Status: Awake (Alert & Oriented to Patient Baseline) Airway and Respiratory Function: Patent airway with normal (patient baseline) respiratory exam Cardiovascular Function: Hemodynamically Stable Hydration Status: Adequately Hydrated Nausea & Vomiting: No Nausea or Vomiting Pain: Pt. Denies Any Pain Peripheral Nerve Block: Patient did not receive a nerve block
== END 2023-07-06 15:00 | disposition home or self-care (01) ==
PROVIDERS: PCP Neuromusculoskeletal Medicine & OMM; Visit Provider Student in an Organized Health Care Education/Training Program
PROC: 0SR90JZ Replacement of Right Hip Joint with Synthetic Substitute, Open Approach (ICD-10-PCS; CPT 27130; principal; 2023-07-06 07:30)
DX: M16.0 Bilateral primary osteoarthritis of hip (principal); G47.33 Obstructive sleep apnea (adult) (pediatric); E66.9 Obesity, unspecified; Z68.43 Body mass index [BMI] 50.0-59.9, adult
CPT/HCPCS: 27130; 20985; 97162; 97530; 73501; C1776; J0690; J1100; J2001; J2250; J2371; J2405; J2704

== ENCOUNTER 2023-07-19 15:36 | Outpatient (CLI) | payer MEDICAID, SELFPAY ==
--- NOTE | 2023-07-19 11:16 | DI.RAD_ITS ---
Exam(s) XR HIP PELVIS ADULT BL EXAM: XR HIP PELVIS ADULT BL CLINICAL HISTORY: 1ST POST OP BILAT THAS. TECHNIQUE: 2D digital imaging was performed. Three views. COMPARISON: CR XR PELVIS AP from 06/21/2023 XA XR HIP LT IN OR from 07/06/2023 XA XR HIP RT IN OR from 07/06/2023 FINDINGS: BONES: No acute fracture is present. No bony destructive lesion is seen. There has been no change in the alignment of the bilateral hip prostheses. No abnormal surrounding bony lucencies. JOINTS: No dislocation present. SI joints and pubic symphysis are unremarkable. SOFT TISSUE: Normal. IMPRESSION: Stable appearance of bilateral hip prostheses. DATA REPOSITORY: RADIATION DOSE DELIVERED:
== END 2023-07-19 15:37 | disposition home or self-care (01) ==
LOC: DIORS 15:36
PROVIDERS: PCP Neuromusculoskeletal Medicine & OMM; Visit Provider Student in an Organized Health Care Education/Training Program
DX: Z96.643 Presence of artificial hip joint, bilateral (principal); Z47.1 Aftercare following joint replacement surgery
CPT/HCPCS: 73521

== ENCOUNTER 2023-09-09 07:58 | Outpatient (CLI) | payer MEDICAID, SELFPAY ==
[2023-09-09 08:06] VITALS: BP 181/85; PULSE 80; RESP 20; TEMP 36.4; O2SAT 97
[2023-09-09] MEDS: Midazolam 2 MG/2 ML VIAL IVP (08:30)
[2023-09-09] MEDS: fentaNYL 100 MCG/2 ML VIAL IVP (08:30)
--- NOTE | 2023-09-09 09:08 | DI.RAD_ITS ---
Exam(s) XR PAIN CLINIC LUMBAR SP 2V EXAM: XR PAIN CLINIC LUMBAR SP 2V CLINICAL HISTORY: DX: Lumbar spondylosis TECHNIQUE: 2D and realtime digital imaging was performed. CONTRAST MATERIAL: Refer to procedure report. COMPARISON: No exams were available for comparison FINDINGS: Fluoroscopy was provided for Dr. Mayo during the performance of a bilateral lumbar radiofrequency ab lation. Please refer to the procedure report for complete details. Ka,r=44.2 mGy IMPRESSION: RADIATION DOSE DELIVERED: 0.0 0.0 0
[2023-09-09] MEDS: Bupivacaine 0.5% Pres-Free 10 ML VIAL IJ (09:15)
[2023-09-09] MEDS: Lidocaine 2% Multi-Dose 20 ML VIAL IJ (09:15)
[2023-09-09] MEDS: Lactated Ringers 500 ML 80 ML IV (09:15)
[2023-09-09] MEDS: methylPREDNISolone ACETATE 40 MG/ML VIAL IJ (09:16)
[2023-09-09] MEDS: Nerve Block Tray 1 EACH MC (09:17)
[2023-09-09 09:21] VITALS: BP 152/91; PULSE 80; RESP 17; O2SAT 97
--- NOTE | 2023-09-09 10:05 | PDOC.PAIN ---
Date of service: 09/09/23 Time of Service: 10:06 Pain Managment Procedure Note Procedure Note Procedure Note: PROCEDURE NOTE BILATERAL LUMBAR RADIOFREQUENCY ABLATION Date of Service: September 09, 2023 Patient:Rox Tillman? Provider:? Horacio Mayo DO, MPH Rox Cervantes [facility] B[facility] Lumbar Radiofrequency Ablation with the Corinduss Machine.? Pre Operative Diagnosis: Lumbosacral Spondylosis without Myelopathy Post Operative Diagnosis: Same Pre procedure pain; VAS= 8/10 Comments: She states >6 months of >50% pain relief with her last bilateral L3-L5 RFA on 02/17/23. PROCEDURE: Radiofrequency Ablation of medial branches - bilateral L3, L4, L5 and lateral branches of bilateral S1. Rox?was interviewed and the medical record was reviewed.? There were no medical, pharmacologic, radiographic or other structural contraindications to attempting fluoroscopically guided BILATERAL Lumbar Radiofrequency Ablation.?Risks and expected side effects as well as potential benefit of the procedure were reviewed with Rox, and the patient's voiced concerns were addressed.? The printed consent form was signed.? Standard time-out procedure was performed. Rox was brought into the fluoroscopy suite and positioned into the prone position on the fluoroscopy table and allowed to adjust to a position of comfort. A grounding pad was placed on the left abdomen. The sterile field was prepared using chlorhexidine preparation of the skin and sterile draping. Local anesthesia superficial and deep was provided by local infiltration of 2% lidocaine. A 17g 150 mm radiofrequency introducer needle was placed to the planned anatomic targets guided with intermittent fluoroscopy with a perpendicular approach to terminally place at the junction of the superior articular process and the transverse process of the bilateral L4, L5, the base of the sacral ala on the bilateral for the L5 medial branch nerve and the area between base of the sacral ala to the S1 foramen bilaterally. The stylets were removed and radiofrequency probes with a 4mm active tip were then inserted. Needle tip position of the probes was verified in the AP, oblique, and lateral views. At each site, the medial branch nerve was stimulated at 2 Hz to a maximum 1-2 volts determined to finalize safe needle and electrode placement. The patient was awake and responsive during this portion of the procedure. Each target was anesthetized with 1-2 mL of 2 % Lidocaine for anesthesia for lesioning and then each target was lesioned at 80 degrees Celsius for 2 minutes and 30 seconds. Tissue impedances were noted to be between 250 and 500 Ohms. I next injected 1/4 cc of Depomedrol (40 mg/cc) followed by 0.5 cc of 0.5% Bupivacaine, at each segmental sensory nerve. There was no unusual discomfort expressed by Rox. The needles were withdrawn without difficulty and bandages placed over the needle placement sites, the patient was observed and was without hemodynamic, neurologic, or allergic reactions. Fluoroscopic images were digitally archived. POST PROCEDURE EVALUATION: IMPRESSION: 1. Summary of procedure. Medication given is documented in the MAR. 2. Follow up plan: [facility]ox to contact [facility] needed.?This procedure may be repeated if the patient achieves at least 50% improvement in pain/function for at least 6 months. 3. Estimated Blood Loss: <5 mls 4. Fluoroscopy time: Documented in the EMR. Follow up plans and appointments were discussed with the Rox. Post procedure instruction was given as documented in nursing documentation and having met discharge criteria, Rox was discharged from the [facility]. COMMENTS: No apparent complications. Post-procedure pain: VAS= 3/10. I personally completed the entire procedure. HORACIO MAYO DO, MPH [employer]BPM[employer] - Subspecialty board certification in Pain Medicine [facility] [facility]
== END 2023-09-09 07:59 | disposition home or self-care (01) ==
LOC: PC 07:58
PROVIDERS: PCP Neuromusculoskeletal Medicine & OMM; Visit Provider Preventive Medicine Occupational Medicine
DX: M47.817 Spondylosis without myelopathy or radiculopathy, lumbosacral region (principal)
CPT/HCPCS: 64635; 64636; 72100; J0665; J1010; J2003; J2250; J3010

== ENCOUNTER 2023-09-19 17:11 | Observation (INO) | payer MEDICAID, SELFPAY ==
[2023-09-19] VITALS (52 sets, daily range): BP systolic 140–224; BP diastolic 67–100; PULSE 60–84; RESP 10–26; TEMP 36.9; O2SAT 88–98
--- NOTE | 2023-09-19 17:00 | DI.RAD_ITS ---
Exam(s) XR PORTABLE CHEST AP EXAM: XR PORTABLE CHEST AP CLINICAL HISTORY: Chest Pain TECHNIQUE: 2D digital imaging was performed. COMPARISON: CR CHEST 2 VIEWS PA,LAT from 08/04/2016 FINDINGS: Exam limited by under penetration. Mild motion artifact. Image graininess. LUNGS: Clear. No pleural abnormality seen. HEART: Normal size. AORTA: Normal diameter. BONES: Unremarkable for age. Soft tissues: Unremarkable. IMPRESSION: limited exam. No acute findings. DATA REPOSITORY: RADIATION DOSE DELIVERED:
--- NOTE | 2023-09-19 17:00 | RT.EKG_ITS ---
APPROVED REPORT Exam: Resting ECG Reason for Exam: Chest pain Patient Location: E HR:75 bpm ECG Measurements Heart Rate 75 AXIS LA 137 P 29 QRSd 81 QRS 4 QT 413 T 51 QTc 462 Conclusion Sinus rhythm...normal P axis, V-rate 60- 99 Physician: no stemi, minimal ant/lat depression is noted and new
--- NOTE | 2023-09-19 17:17 | W.ED.GENAD ---
Discharge Plan Disposition Condition: Stable Discharge Details Chief Complaint: Chest Pain Clinical Impression: Other acute postprocedural pain, Back pain Primary Care Provider: Percy Roche ED Provider: Suzan Ma Home Meds and New Rx's Prescriptions: Continued gabapentin 100 mg capsule 300 mg PO TID sertraline 100 mg tablet 150 mg PO DAILY tramadol 50 mg tablet 50 mg PO Q12H PRN magnesium 250 mg tablet 500 mg PO DAILY losartan 25 mg tablet 25 mg PO DAILY acetaminophen 500 mg tablet 1,000 mg PO Q8H PRN Qty: 90 0RF Rx Instructions: Take two tablets up to every 8 hours as needed for pain celecoxib [Celebrex] 200 mg capsule 200 mg PO BID PRNQty: 60 0RF Rx Instructions: Take one tablet twice daily for pain and inflammation docusate sodium [Colace] 100 mg capsule 100 mg PO BID Qty: 30 0RF prednisone 20 mg tablet 40 mg PO DAILY Patient Comments: TAKE TWO TABLETS BY MOUTH EVERY DAY FOR 5 DAYS Discharge Instructions Instructions: Back Pain (ED) Additional Instructions: No evidence for cardiac abnormality or blood clots in your lungs at this time. Please call the pain clinic tomorrow to discuss MRI with your doctor. You may also call [facility] [place] antenna specialist for further evaluation and treatment if needed. I will also refer you to physical therapy. Please discuss this with the pain clinic. Stand Alone Forms: Physical Therapy Referral Referrals: [facility] [Provider Group] - 1 day Percy Roche [Primary Care Provider] - 5 days HPI General Mode of arrival: EMS. Date/Time Provider Initiated Documentation: 09/19/23 17:17. Limitations to Documentation: no limitations. Information obtained by: patient, EMS, RN notes reviewed and old records reviewed. HPI Narrative: 57-year-old female presents to the ER via EMS with a chief complaint of lower back pain, nausea vomiting dry heaves diaphoresis and chest pain which radiates down her right arm which began last night. She recently had an ablation noted to her lower lumbar region reports that she had been on oxycodone until about she reports that she stopped taking that was placed on ibuprofen 800 mg. Last night she began with some sharp shooting chest pain in between her shoulder blades rating down her right arm and continued lower back pain. Associated symptoms include the above-mentioned nausea diaphoresis. Upon arrival she is complaining of 9 out of 10 chest pain which she describes as sharp. She was given 3 sublingual nitros by EMS prior to arrival, 324 of aspirin and Zofran. She does have a past medical history of obesity, insomnia, sciatica hyperlipidemia. Related Data Home Medications Medication Instructions Recorded Confirmed sertraline 100 mg tablet 150 mg PO DAILY 03/20/22 09/19/23 tramadol 50 mg tablet 50 mg PO Q12H PRN 03/20/22 09/19/23 gabapentin 100 mg capsule 300 mg PO TID 12/04/22 09/19/23 magnesium 250 mg tablet 500 mg PO DAILY 12/04/22 09/19/23 losartan 25 mg tablet 25 mg PO DAILY 06/07/23 09/19/23 acetaminophen 500 mg tablet 1,000 mg (2 x 500 mg) PO Q8H PRN 07/06/23 09/19/23 pain #90 tabs celecoxib 200 mg capsule (Celebrex) 200 mg PO BID PRN #60 caps 07/06/23 09/19/23 docusate sodium 100 mg capsule 100 mg PO BID #30 caps 07/06/23 09/19/23 (Colace) prednisone 20 mg tablet 40 mg PO DAILY 09/19/23 09/19/23 Previous Rx's Medication Instructions Recorded acetaminophen 500 mg tablet 1,000 mg (2 x 500 mg) PO Q8H PRN 07/06/23 pain #90 tabs celecoxib 200 mg capsule (Celebrex) 200 mg PO BID PRN #60 caps 07/06/23 docusate sodium 100 mg capsule 100 mg PO BID #30 caps 07/06/23 (Colace) Allergies Allergy/AdvReac Type Severity Reaction Status Date / Time meperidine HCl [From Demerol] Allergy Intermediate Hives Verified 09/19/23 17:24 diphenhydramine HCl Allergy Mild Skin Rash Verified 09/19/23 17:24 [From Benadryl] aspirin Allergy Hives Verified 09/19/23 17:24 cyclobenzaprine HCl Allergy Hives Verified 09/19/23 17:24 [From Flexeril] General MARINE: 4 Review of Systems All systems reviewed & are unremarkable except as noted in HPI and below Constitutional Constitutional: Reports as per HPI Cardiovascular Cardiovascular: Reports chest pain Respiratory Respiratory: Denies cough Gastrointestinal Gastrointestinal: Reports as per HPI and Reports nausea Exam Narrative Exam Narrative: Constitutional: Alert and oriented x3. Appears stated age. Obese body habitus. Head: Normocephalic, no trauma. Eyes: Pupils PERRL, Red reflex noted, EOM's intact. Eyelids symmetrical without lesions, discharge, or swelling. ENT: Bilateral TM's WNL, External ear normal to inspection, no mastoid TTP, swelling, or erythema, Nasal turbinates WNL, no nasal discharge. Normal dentition, Posterior pharynx WNL, no exudate. Chest: RRR, Normal S1, S2, distal pulses intact. Resp: Lungs clear to auscultation bilaterally, no wheezes, rales, or rhonchi. Abdomen: Soft, non-distended, Normoactive bowel sounds all 4 quads. Musculoskeletal: Unable to assess gait, Moves all 4 extremities without difficulty. Skin: No suspicious rashes or lesions. Capillary refill less than 2 sec. Neurologic: Cranial nerves II-XII intact. Alert and oriented x 3. Motor: No deficits noted. Sensory: Intact bilaterally all 4 extremities. Hematologic/Lymphatic: No ecchymosis, no lymphadenopathy. Medical Decision Making 57-year-old female presents to the ER via EMS with a chief complaint of lower back pain, nausea vomiting dry heaves diaphoresis and chest pain which radiates down her right arm which began last night. She recently had an ablation noted to her lower lumbar region reports that she had been on oxycodone until about she reports that she stopped taking that was placed on ibuprofen 800 mg. Last night she began with some sharp shooting chest pain in between her shoulder blades rating down her right arm and continued lower back pain. Associated symptoms include the above-mentioned nausea diaphoresis. Upon arrival she is complaining of 9 out of 10 chest pain which she describes as sharp. She was given 3 sublingual nitros by EMS prior to arrival, 324 of aspirin and Zofran. She does have a past medical history of obesity, insomnia, sciatica hyperlipidemia. Of note, informed by corporate staff accountant that patient just recently returned from a car trip to [place] prior to her ablation procedure. Cardiac workup ordered including serial troponins, chest x-ray. Patient had no relief with the nitroglycerin. Differential diagnosis includes but not limited to musculoskeletal tenderness, nerve pain, CAD, IA, ischemia, PE, pneumonia. 1916: On patient reevaluation she is still complaining of muscle spasm, her acute pain has decreased somewhat. I did discuss the CT results and x-ray results with her and encouraged her to stay for the second troponin. She verbalizes understanding. She is supposed to speak with the pain specialist on Wednesday. On reviewing of pain specialist note they were considering MRI which may be beneficial as an outpatient. Patient has no signs of cauda equina at this time. Valium 2 mg p.o. ordered for muscle spasm. Patient is allergic to cyclobenzaprine she takes Celebrex and gabapentin. Second troponin within normal limits. Discussed plan of care to get patient up and goal is to get her home. is at bedside at this time. 50 mg tramadol ordered prior to road test. Patient has been using a walker today she has had worse pain and she is unable to use her walker as normal. Will road test and attempt discharge home. Discussed case with hospitalist who was able to view her chart, at this time there is no reason to admit other than pain control, which is complicated by patients chronic pain syndrome, also her inability to walk due to pain. Patient refusing to try road test, refusing to even grab the walker, per ED staff, she does become diaphoretic and complains of severe pain with any type of movement. Patient does have chronic pain syndrome, and legitimate back problems, however this seems to be acute exacerbation of a chronic issue. Will discuss with patient, she has full mobility of lower extremities and c/o muscle pain and spasm. After discussing with patient and family will CT her T and L-spine to rule out acute changes. Patient is stating that she is getting an ambulance to go back home and history she has been unable to get out of her recliner for the last 24 hours. Patient states that now she never actually really had chest pain that is always been back pain that has gotten worse. She is also stating that she would need an ambulance to get home. Toradol 15 mg IV ordered, lidocaine patch, Solu-Medrol 80 mg IV and Tylenol 1 g. Patient sleeping, family at bedside, I was asked to speak with the son in the waiting room who expressed his concerns over his Mother getting oxycodone previously, He did seem agitated, I explained the workup thus far and all of his concerns and questions were answered to the best of my ability. CT being read by Vrjojo at this time. Possible plan of care is PT eval in am and possibility for home health. Care is to be signed out to oncoming provider Dr. Cardenas pending re-eval in am for PT. Medical Records Medical records reviewed: Yes I reviewed the patient's medical records. Medical records narrative: Seen at Pain clinic for radiofrequency ablation on 09-16-23 Imaging Data Radiologic Study: Imaging: CT Scan Radiologist's impression: COMPARISON: CR XR PORTABLE CHEST AP 09/19/2023 5:33 PM FINDINGS: Mildly limited due to respiratory motion artifact Pulmonary arteries: No pulmonary emboli. Aorta: Unremarkable. No aortic aneurysm. No aortic dissection. Lungs: Minimal subsegmental atelectasis No consolidation. No masses. Pleural spaces: No pneumothorax. No pleural effusion. Heart: Mild cardiomegaly. No pericardial effusion. Lymph nodes: No enlarged lymph nodes. Bones/joints: No acute fracture. Soft tissues: Unremarkable. IMPRESSION: No pulmonary emboli observed Thank you for allowing us to participate in the care of your patient. Dictated and Authenticated by: Tom Gann MD Lab Data Lab results reviewed: Yes I reviewed the patient's lab results. Labs: Laboratory Tests Range/Units 09/19/23 17:40 WBC (4.4-10.8) 10^3/uL 18.97 H RBC (3.93-5.22) 10^6/uL 4.76 Hgb (11.2-15.7) g/dL 13.4 Hct (36.0-46.0) % 40.9 MCV (80-95) fL 86 MCH (27.0-33.0) pg 28.2 MCHC (32.0-36.0) % 32.8 RDW (11.7-14.6) % 13.7 Plt Count (130-400) 10^3/uL 370 MPV (8.0-11.0) fL 10.3 Immature Gran % % 2.6 Neutrophils % % 77.4 Lymphocytes % % 11.7 Monocytes % % 7.9 Eosinophils % % 0.1 Basophils % % 0.3 Nucleated RBC % (0.0-0.3) % 0.0 Absolute Neutrophils (1.2-6.7) 10^3/uL 14.68 H Absolute Lymphocytes (1.2-3.4) 10^3/uL 2.22 Absolute Monocytes (0.1-0.8) 10^3/uL 1.50 H Absolute Eosinophils (0.0-0.7) 10^3/uL 0.02 Absolute Basophils (0.0-0.2) 10^3/uL 0.06 Sodium (136-145) mmol/L 138 Potassium (3.5-5.1) mmol/L 3.3 L Chloride (98-107) mmol/L 99 Carbon Dioxide (21.0-32.0) mmol/L 28.6 Anion Gap (3-11) mmol/L 10.4 BUN (7-18) mg/dL 17 Creatinine (0.55-1.02) mg/dL 0.6 Est GFR (CKD-EPI 2020) (mL/min/1.73m2) 103.98 Glucose (74-106) mg/dL 127 H Calcium (8.5-10.1) mg/dL 9.1 Magnesium (1.8-2.4) mg/dL 1.8 Total Bilirubin (0.2-1.0) mg/dL 0.5 AST (15-37) U/L 15 ALT (14-59) U/L 39 Alkaline Phosphatase (46-116) U/L 115 Troponin I (< or =60) ng/L < 50 Total Protein (6.4-8.2) g/dL 7.5 Albumin (3.4-5.0) g/dL 2.6 L ECG Data Prior ECG tracings: available for review Quality:SDOH Health Related Social Needs: No Data to Display PFSH All Active Problems (Updated 09/19/23 @ 20:42 by Suzan Ma NP) Back pain (Acute) Other acute postprocedural pain (Acute) Anxiety (Chronic) JULIO (obstructive sleep apnea) (Chronic) CPAP Pain disorder associated with psychological and physical factors (Acute) Chronic pain (Chronic) Psychological and behavioral factors associated with disorders or diseases classified elsewhere (Acute) Lumbosacral spondylosis without myelopathy (Acute) Chronic pain syndrome (Chronic) Osteoarthritis of knees, bilateral (Chronic) Depo-medrol injection: 06/07/2023; 03/08/2023; 12/04/22; 08/17/2022; 04/20/2022 Encounter for Pap smear of cervix with HPV DNA cotesting (Acute) IUD surveillance (Acute) Counseling for hormone replacement therapy (Acute) Well woman exam (Acute) Medical History Snoring Sciatica Plantar fascial fibromatosis Obesity Knee pain Insomnia Idiopathic osteoarthritis Hyperlipidemia Hip pain Ganglion and cyst of synovium, tendon and bursa Depressive disorder Deformity Carpal tunnel syndrome Calcaneal spur of right foot Arthropathy Surgical History History of bilateral total hip arthroplasty (07/06/23) Ganglion cyst of finger of right hand Achilles tendonitis osteotomy and tendon repair - left Status post carpal tunnel release of both wrists Status post cholecystectomy Status post tubal ligation History of section Family History Mother Hypertension Father Heart disease Social History Smoking/Tobacco Use Status: Former Tobacco Use Quit Date: 05/17/13 Smoking risk assessment performed?: Yes Alcohol Intake: current Alcohol Intake frequency: holidays/special occasions only Alcohol type: wine Drug use: Never Substance use type: does not use Housing: house Do you feel safe at home: Yes Do you feel safe in your relationship?: Yes Sign Out Sign Out Data: Sign Out Comment: Pending CT T and L spine results, and PT eval in am. May possibly need MRI. Here initially for CP, has chronic back pain and recent lumbar radiofrequency ablation on at pain clinic. Here after increased pain and inability to get out of recliner today. No neuro deficits. Last updated by Suzan Ma NP at 09/20/23 00:05
[2023-09-19 18:00] LABS: Abs Immature Grans 0.49 10^3/uL (0.0-0.06); Absolute Basophil Count 0.06 10^3/uL (0.0-0.2); Absolute Lymphocyte Count 2.22 10^3/uL (1.2-3.4); Basophils % 0.3 %; Eosinophils % 0.1 %; HCT 40.9 % (36.0-46.0); HGB 13.4 g/dL (11.2-15.7); Immature Grans % 2.6 %; Lymphocytes % 11.7 %; MCH 28.2 pg (27.0-33.0); MCHC 32.8 % (32.0-36.0); MCV 86 fL (80-95); MPV 10.3 fL (8.0-11.0); Monocytes % 7.9 %; Neutrophils % 77.4 %; Platelet Count 370 10^3/uL (130-400); RBC 4.76 10^6/uL (3.93-5.22); RDW 13.7 % (11.7-14.6); RDW-SD 43.4 fL; WBC 18.97 10^3/uL (4.4-10.8)
[2023-09-19 18:03] LABS: Absolute Eosinophil Count 0.02 10^3/uL (0.0-0.7); Absolute Neutrophil Count 14.68 10^3/uL (1.2-6.7)
[2023-09-19 18:21] LABS: ALT 39 U/L (14-59); AST 15 U/L (15-37); Albumin 2.6 g/dL (3.4-5.0); Alkaline Phosphatase 115 U/L (46-116); Anion Gap 10.4 mmol/L (3-11); BUN 17 mg/dL (7-18); Bilirubin, Total 0.5 mg/dL (0.2-1.0); CO2 28.6 mmol/L (21.0-32.0); CREATININE 0.6 mg/dL (0.55-1.02); Calcium 9.1 mg/dL (8.5-10.1); Chloride 99 mmol/L (98-107); Estimated GFR 103.98 (mL/min/1.73m2); Glucose 127 mg/dL (74-106); Magnesium 1.8 mg/dL (1.8-2.4); Potassium 3.3 mmol/L (3.5-5.1); Sodium 138 mmol/L (136-145); Total Protein 7.5 g/dL (6.4-8.2); Troponin I < 50 ng/L (< or =60)
[2023-09-19] MEDS: MORPHine 10 MG/ML VIAL 2 MG IVP ×2 (18:26→18:54)
[2023-09-19] MEDS: Ondansetron 4 MG/2 ML VIAL IVP (18:27)
--- NOTE | 2023-09-19 18:28 | DI.VRAD_ITS ---
PROCEDURE INFORMATION: Exam: XR Chest Exam date and time: 09/19/2023 5:33 PM Age: 57 years old Clinical indication: Other: Unspecified; Patient HX: Chest pain TECHNIQUE: Imaging protocol: Radiologic exam of the chest. Views: 1 view. COMPARISON: No relevant prior studies available. FINDINGS: Limited due to motion artifact Lungs: Unremarkable. No consolidation. Pleural spaces: Unremarkable. No pleural effusion. No pneumothorax. Heart/Mediastinum: Unremarkable. No cardiomegaly. Bones/joints: Unremarkable. IMPRESSION: No acute findings. Dictated and Authenticated by: Tom Gann MD. Ordering:CHAYITO Mares MD
[2023-09-19] MEDS: Omnipaque 350 MG/ML 100 ML BTL IJ (18:49)
[2023-09-19] MEDS: Normal Saline - Diluent 50 ML VIAL IJ (18:50)
--- NOTE | 2023-09-19 19:02 | DI.VRAD_ITS ---
PROCEDURE INFORMATION: Exam: CTA Chest With Contrast Exam date and time: 09/19/2023 6:31 PM Age: 57 years old Clinical indication: Other: Unspecified; Patient HX: Chest pain TECHNIQUE: Imaging protocol: Computed tomographic angiography of the chest with contrast. Exam focused on the arteries. 3D rendering (Not supervised by radiologist): MIP and/or 3D reconstructed images were created by the technologist. COMPARISON: CR XR PORTABLE CHEST AP 09/19/2023 5:33 PM FINDINGS: Mildly limited due to respiratory motion artifact Pulmonary arteries: No pulmonary emboli. Aorta: Unremarkable. No aortic aneurysm. No aortic dissection. Lungs: Minimal subsegmental atelectasis No consolidation. No masses. Pleural spaces: No pneumothorax. No pleural effusion. Heart: Mild cardiomegaly. No pericardial effusion. Lymph nodes: No enlarged lymph nodes. Bones/joints: No acute fracture. Soft tissues: Unremarkable. IMPRESSION: No pulmonary emboli observed Dictated and Authenticated by: Tom Gann MD. Ordering:CHAYITO Mares MD
[2023-09-19] MEDS: diazePAM 2 MG TAB PO (19:48)
[2023-09-19 20:31] LABS: Troponin I < 50 ng/L (< or =60)
[2023-09-19] MEDS: traMADol 50 MG TAB PO (20:43)
--- NOTE | 2023-09-19 21:28 | DI.CT_ITS ---
Exam(s) CT LUMBAR SPINE WO EXAM: CT LUMBAR SPINE WO CLINICAL HISTORY: Pain after lumbar ablation. TECHNIQUE: Imaging Protocol: Axial computed tomography images with coronal and sagittal reformatted images were created and reviewed COMPARISON: XR PAIN CLINIC LUMBAR SP 2V from 09/09/2023 FINDINGS: Bones: The last intervertebral disc space is designated the L5/S1 level for the numbering purpose of this examination. The vertebral body heights are well maintained. Mild dextroscoliosis. No fracture is seen. Bilateral prostheses. Facet degenerative changes are noted throughout. Most prominent at L4-5 and L5-S1. Neural foraminal narrowing bilaterally, greatest at L4-5. Disc heights are maintained. Mild disc bulging. No visib le disc herniation. The visualized SI joints and sacrum are will maintained. Soft Tissues: The paraspinal soft tissues are unremarkable. No hematoma or abscess. Parada catheter noted in bladder. IMPRESSION: Degenerative changes mainly of the facet joints. No acute abnormality identified. RADIATION DOSE DELIVERED: 1,395.37mGy.cm Total DLP DATA REPOSITORY: All CT scans at this facility are submitted to the National Radiology Data Registry (NRDR) Dose Index Registry (DIR) with the [employer] ([employer]). RADIATION OPTIMIZATION: All CT scans at this facility use at least one of these dose optimization te chniques: automated exposure control; mA and/or kV adjustment per patient size (includes targeted exa ms where dose is matched to clinical indication); or iterative reconstruction.
--- NOTE | 2023-09-19 21:42 | DI.CT_ITS ---
Exam(s) CT CHEST PE CTA CT THORACIC SPINE RECONS EXAM: CT CHEST PE CTA CLINICAL HISTORY: Chest pain. TECHNIQUE: Imaging Protocol: Axial CT angiography was performed with multi-slice acquisition and mu lti-planar reconstructions as well as axial, coronal and sagittal MIP reconstructions. Axial, coronal and sagittal reconstructions of the spine were performed in soft tissue and bone algor ithm. CONTRAST MATERIAL: Intravenous: Omnipaque 350 Contrast volume:100 ml COMPARISON: CT CT THORACIC SPINE RECONS from 09/19/2023 FINDINGS: Pulmonary Arteries: No evidence of filling defect to suggest pulmonary emboli. Tracheobronchial tree: No mucous plugging. Mediastinum and Nancie: No dominant adenopathy or fluid collection. Pulmonary parenchyma: Expiratory changes. No consolidation or dominant measurable mass. Pleura: No effusion or pneumothorax. Heart: The heart is not dilated. No coronary artery calcifications are seen. Aorta: Thoracic aorta non-dilated. No dissection. Upper abdomen: No acute findings. Enlarged fatty liver. Status post cholecystectomy. Bones: Degenerative changes in the spine. No evidence of fracture. No lytic or blastic lesion. Tubes, Catheters, and Lines: None Soft tissues: Unremarkable. IMPRESSION: No evidence of pulmonary embolism or other acute abnormality. Degenerative changes in the thoracic spine. No acute abnormality. RADIATION DOSE DELIVERED: 693.63mGy.cm Total DLP DATA REPOSITORY: All CT scans at this facility are submitted to the National Radiology Data Registry (NRDR) Dose Index Registry (DIR) with the [employer] (ACR). RADIATION OPTIMIZATION: All CT scans at this facility use at least one of these dose optimization te chniques: automated exposure control; mA and/or kV adjustment per patient size (includes targeted exa ms where dose is matched to clinical indication); or iterative reconstruction.
--- NOTE | 2023-09-19 21:59 | NUR.NOTE ---
report given to Eduardo, EMT-P and care relinquished Nursing Note:
[2023-09-19] MEDS: Ketorolac 15 MG/ML VIAL IVP (22:01)
[2023-09-19] MEDS: methylPREDNISolone SUCC 125 MG VIAL 80 MG IVP (22:01)
[2023-09-19] MEDS: Lidocaine 5% Patch 1 PATCH TP (22:01)
[2023-09-19] MEDS: ACETAMINOPHEN 1,000 MG/100 ML BTL 400 MG IVPB (22:40)
[2023-09-20] VITALS (96 sets, daily range): BP systolic 136–206; BP diastolic 70–117; PULSE 62–82; RESP 10–23; TEMP 35.7–37.1; O2SAT 89–100
--- NOTE | 2023-09-20 00:23 | DI.VRAD_ITS ---
PROCEDURE INFORMATION: Exam: CT Thoracic Spine Without Contrast Exam date and time: 09/19/2023 6:31 PM Age: 57 years old Clinical indication: Pain in thoracic spine; Patient HX: Back pain, recent L spine surgery TECHNIQUE: Imaging protocol: Computed tomography of the thoracic spine without contrast. Radiation optimization: All CT scans at this facility use at least one of these dose optimization techniques: automated exposure control; mA and/or kV adjustment per patient size (includes targeted exams where dose is matched to clinical indication); or iterative reconstruction. COMPARISON: CT CHEST PE CTA 09/19/2023 6:31 PM FINDINGS: Bones/joints: No acute fracture. Normal alignment. Degenerative disc disease noted most prominent at Soft tissues: Unremarkable. IMPRESSION: No acute fracture. Multilevel degenerative changes as described.. Dictated and Authenticated by: Veronique Crouch MD. Ordering:CHAYITO Mares MD
--- NOTE | 2023-09-20 00:27 | DI.VRAD_ITS ---
PROCEDURE INFORMATION: Exam: CT Lumbar Spine Without Contrast Exam date and time: 09/19/2023 10:04 PM Age: 57 years old Clinical indication: Low back pain; Patient HX: Pain after lumbar ablation; Bilat lumbar rfa 09/09/23 TECHNIQUE: Imaging protocol: Computed tomography of the lumbar spine without contrast. COMPARISON: OT XR PAIN CLINIC LUMBAR SP 2V 09/09/2023 8:39 AM FINDINGS: Bones/joints: No acute fracture. Normal alignment. There is multilevel degenerative disc disease and bilateral facet arthropathy causing bilateral neural foraminal narrowing most prominent at L4-L5. No severe spinal canal stenosis. Soft tissues: Unremarkable. IMPRESSION: No acute fracture. Multilevel degenerative changes as described. Dictated and Authenticated by: Veronique Crouch MD. Ordering:CHAYITO Mares MD
[2023-09-20] MEDS: Normal Saline Flush 10 ML SYR IVP ×2 (08:38→19:45)
--- NOTE | 2023-09-20 09:46 | IN_ITS ---
PT Notes Visit Reasons: [facility] Emergency Department Initial Evaluation Date: 09/20/2023 Referring Doctor: Suzan Ma NP PT Orders: PT CONSULT: Safety COnsult for D/C Precautions: Activity as tolerated. Patient Profile/Admitting Diagnosis: Rox is a 57-year-old female who presented to the ED on 09/19/2023 due to nausea, vomitting, diaphoresis, dry heaves, chest pain with radiation down her L arm, and low back pain that spreads down her right posterior thigh and R calf. Patient s S/P bilateral L3, L4, L5 medial branch ablation and bilateral S1 lateral branch ablation on 09/09/2023 with post-procedure pain report of 3/10 (pre-procedure pain report was 10/10). Per ED MD, patient has been given pain medications last night, Nurse Arturo said that she was given 15 pain meds already but so far nothing has touched her pain until PT performed bed mobility, transfer, and short distance ambulation inside room today. Patient is also S/P B BRISA on 07/06/2023. 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 (Acute) Chronic pain (Chronic) Psychological and behavioral factors associated with disorders or diseases classified elsewhere (Acute) Lumbosacral spondylosis without myelopathy (Acute) Chronic pain syndrome (Chronic) Osteoarthritis of knees, bilateral (Chronic) Depo-medrol injection: 06/07/2023; 03/08/2023; 12/04/22; 08/17/2022; 04/20/2022 Encounter for Pap smear of cervix with HPV DNA cotesting (Acute) IUD surveillance (Acute) Counseling for hormone replacement therapy (Acute) Well woman exam (Acute) Medical History Snoring Sciatica Plantar fascial fibromatosis Obesity Knee pain Insomnia Idiopathic osteoarthritis Hyperlipidemia Hip pain Ganglion and cyst of synovium, tendon and bursa Depressive disorder Deformity Carpal tunnel syndrome Calcaneal spur of right foot Arthropathy Surgical History History of bilateral total hip arthroplasty (07/06/23) Ganglion cyst of finger of right hand Achilles tendonitis osteotomy and tendon repair - left Status post carpal tunnel release of both wrists Status post cholecystectomy Status post tubal ligation History of section Social History/Home Situation: Lives with SO in a private home with 3 steps to enter with rails that are far apart. 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 Independent with all aspects of ADLs prior to srugery although has had worsening difficulty with walking due to arthritic progression. Equipment Owned/DME: None Subjective: 9/10 pain in low back that spreads down the back of her right thigh and her right leg. With movement and weight bearing, it goes to 10/10. Patient was teary eyed after walking 6 slow, discontinuous steps with PT. Denied chest pain, headache, and lightheadedness. Objective: General Observation: Resting in stretcher. Parada catheter in place. Telemetry monitoring in place. SO Alex present throughout session. Mental Status: A and O x 4 Pain: As above Vital signs: Before PT session BP 183/106 mmHg, HR 112 bpm; Before standing up BP 170/89 mmHg, HR 97 bpm ROM: Right Lower Extremity: Hip flexion limited to about 90 degrees to pain. Hip abduction WFL. Knee flexion WFL. Ankle dorsiflexion WFL. Ankle plantarflexion WFL. Left Lower Extremity: Hip flexionl limited to about 100 degrees due to abdominal pannus and pain report. Hip abduction WFL. Knee flexion WFL. Ankle dorsiflexion WFL. Ankle plantarflexion WFL. Strength: Right Lower Extremity: Hip flexors 3-/5. Hip abductors 3-/5. Knee flexors 4-/5. Knee extensors 4-/5. Ankle dorsiflexors 4-/5. Ankle plantarflexors 4-/5. Left Lower Extremity:Hip flexors 3-/5. Hip abductors 3-/5. Knee flexors 4-/5. Knee extensors 4-/5. Ankle dorsiflexors 4-/5. Ankle plantarflexors 4-/5. Sensation: Intact as to pain and light pressure. No numbness not tingling. Bed Mobility/Transfers: Moderate cueing provided for use of B hands as needed for support, movement sequence, AD management, and posture to reduce fall risk and minimize pain report Supine to sit moderate assist with HOB at about 45 degrees Sit to stand moderate assist using FWW Stand to sit minimal assist using B hands for support Bed to chair moderate assist using FWW Gait: Facilitated safe and correct performance of level surface ambulation covering a distance of 6-7 steps using bariatric FWW with moderate assist and whelchair follow of ED COLOR STRAINING BAG WASHER for safety. Steps asymmetrical with trunk in flexion as patient's position of least irritation. Moderate cueing provided for limb advancement, movement sequence, AD management, and posture to reduce fall risk and minimize pain report. Pain report at 02/23 with radiation to posterior thigh and posterior leg on the R side. Patient teary eyed due to pain. No loss of balance. Balance: Static Sitting: Normal Dynamic Sitting: Normal Static Standing: Fair Dynamic Standing: Poor Special Tests: Mobility Limitations Standardized Measure [facility] AM-PAC 6 clicks Basic Mobility Inpatient Short Form: Raw Score: 11 CMS Score: 73% deficit Informed Consent/Education: Patient instructed in purpose of PT consult. Unsure of how she will do at home like this. SO Alex siuinf for patient not to go home due to safety. ASSESSMENT: Persistent pain in low back with radiculopathic symptoms to posterior thigh and leg since ablation procedure on 09/09/2023. Patient requires assistance of one person for all mobility ADL performance and is at moderate to high risk for falls due to pain level and side effects of pain medications. Has had no falls nor trauma to back and B LE since ablation. High BMI contributory to pain level. Patient presents with clinical signs and symptoms consistent with current/admitting diagnoses that have resulted to mobility limitations, gait instability, generalized weakness, and impairment of motor control as demonstrated by the following impairment level findings: 1. Decreased strength to B LE major muscle groups 2. Impaired standing balance 3. Limitation of joint range of motion in B hips 4. High BMI 5. Recalcitrant pain in low back and R posterior thigh and leg Impairments are contributing to the following functional limitations: 1. Inability to safely ambulate without assistive device 2. Increase completion time for mobility ADL performance 3. Increased fall risk Patient is assessed as a 21617 moderate complexity based on the following: History: 57-year-old female with impairment level findings, functional limitations, and past medical history as indicated above Examination: Demonstrable impairment in strength, balance, and mobility level with underlying impairments and functional limitations as documented above Presentation: Evolving Decision Makin moderate complexity Follow goals below should patient get admitted to [facility]/acute level of care: Goals X1 week 1. Supine-Sit independent 2. Sit-Supine independent 3. Sit-Stand independent 4. Stand-Sit independent 5. Bed-Chair independent 6. Chair-Bed independent 7. Independent gait on level surface with use of least restrictive device for at least 300 feet without report of pain nor dyspnea 8. Independent stair negotiation while holding onto bilateral rails for at least 10 steps without report of pain nor dyspnea 9. Independent with home exercise program 10. Good static and dynamic standing balance/tolerance Follow PT plan of Care/Treatment should patient get admitted to [facility]/acute level of care: Patient will highly benefit from skilled physical therapy services including functional mobility training, bed mobility/transfer training, gait and balance training, therapeutic exercises, therapeutic activity, caregiver/staff/family education and training 1x/day, 7 days/week x 1 week. Plan of care has been reviewed with the DENTAL INTERN providing the service under Physical Therapy direction. Initiate Physical Therapy intervention for strengthening, bed mobility, trans fers, gait, stairs, balance training, use of assistive device. DISCHARGE RECOMMENDATIONS: SNF vs HH PT based on trajectory of care and on progress towards goals. TREATMENT CODE/TIME: 55016 x 20 minutes for 1 unit, 72992 x 14 minutes for 1 unit (9:46-10:20). Thank you for the opportunity to participate in the care of this patient. Please sign an return this page within 30 days if you agree with the above POC. Thank you! Physician Signature Date [facility] Thank you for the opportunity to participate in the care of this patient. Natasha Chawla PT, DPT, CLT [facility] [place], [place]
--- NOTE | 2023-09-20 10:53 | W.EDPROG ---
Date of service: 09/20/23 Time of Service: 10:54 Medical Decision Making PT evaluation at bedside this morning, patient was able to ambulate somewhat with assistance however per PT patient was in a lot of discomfort and is a high fall risk. As such patient will be admitted for pain control, possible further diagnostic imaging and consideration for rehabilitation placement if medical management not improving patient symptomatology. Patient and family amenable to plan. Quality:SDFL Health Related Social Needs: No Data to Display Sign Out Sign Out Data: Sign Out Comment: Pending CT T and L spine results, and PT eval in am. May possibly need MRI. Here initially for CP, has chronic back pain and recent lumbar radiofrequency ablation on at pain clinic. Here after increased pain and inability to get out of recliner today. No neuro deficits. Last updated by Suzan Ma NP at 09/20/23 00:05 Sign Out Comment: Patient had a workup last night which was negative for any acute process but did reveal chronic bone spurring and multiple levels of lumbar pathology. The patient was unwilling to get up and tried to walk last night secondary to pain. The plan is for patient to have a PT/OT evaluation this morning and the patient can be evaluated by case management for further disposition planning. Last updated by Lang Cardenas MD at 09/20/23 07:36 Discharge Plan Disposition Patient Disposition: Admit to [facility] Condition: Stable Discharge Details Chief Complaint: Chest Pain Clinical Impression: Back pain Primary Care Provider: Percy Roche ED Provider: Michoacano Alonzo Home Meds and New Rx's Prescriptions: Continued gabapentin 100 mg capsule 300 mg PO TID sertraline 100 mg tablet 150 mg PO DAILY tramadol 50 mg tablet 50 mg PO Q12H PRN magnesium 250 mg tablet 500 mg PO DAILY losartan 25 mg tablet 25 mg PO DAILY acetaminophen 500 mg tablet 1,000 mg PO Q8H PRN Qty: 90 0RF Rx Instructions: Take two tablets up to every 8 hours as needed for pain celecoxib [Celebrex] 200 mg capsule 200 mg PO BID PRNQty: 60 0RF Rx Instructions: Take one tablet twice daily for pain and inflammation docusate sodium [Colace] 100 mg capsule 100 mg PO BID Qty: 30 0RF prednisone 20 mg tablet 40 mg PO DAILY Patient Comments: TAKE TWO TABLETS BY MOUTH EVERY DAY FOR 5 DAYS Discharge Instructions Instructions: Back Pain (ED) Additional Instructions: No evidence for cardiac abnormality or blood clots in your lungs at this time. Please call the pain clinic tomorrow to discuss MRI with your doctor. You may also call [facility] business specialist for further evaluation and treatment if needed. I will also refer you to physical therapy. Please discuss this with the pain clinic. Stand Alone Forms: Physical Therapy Referral Referrals: [facility] [Provider Group] - 1 day Percy Roche [Primary Care Provider] - 5 days
--- NOTE | 2023-09-20 11:19 | W.PM.HP.N ---
Date of service: 09/20/23 Time of Service: 11:19 Assessment and Plan Assessment and plan (1) Back pain: Status: Acute Assessment and plan: unfortunately did not receive any pain medication overnight or this am so was unable to be safely re-ambulated with PT. referred to observation for pain management and re-evaluation with PT no symptoms of cauda equina or cord compression, CT imaging with Degenerative changes mainly of the facet joints. No acute abnormality identified. MRI if develops concerning symptoms no trauma super morbid obesity will continue steroids as initiated in the ED yesterday scheduled tylenol, toradol, and lidocaine patches tramadol prn consider flexeril. PT following (2) JULIO (obstructive sleep apnea): Status: Chronic Assessment and plan: home cpap (3) Chronic pain syndrome: Status: Chronic Assessment and plan: continue gabapentin. holding celebrex now on toradol discussed with DR Elaine. History of Present Illness History of Present Illness Chief Complaint: back pain Review of Systems All systems reviewed & are unremarkable except as noted in HPI and below PFSH All Active Problems (Updated 09/20/23 @ 10:55 by Michoacano Alonzo MD) Back pain (Acute) Anxiety (Chronic) JULIO (obstructive sleep apnea) (Chronic) CPAP Pain disorder associated with psychological and physical factors (Acute) Chronic pain (Chronic) Psychological and behavioral factors associated with disorders or diseases classified elsewhere (Acute) Lumbosacral spondylosis without myelopathy (Acute) Chronic pain syndrome (Chronic) Osteoarthritis of knees, bilateral (Chronic) Depo-medrol injection: 06/07/2023; 03/08/2023; 12/04/22; 08/17/2022; 04/20/2022 Encounter for Pap smear of cervix with HPV DNA cotesting (Acute) IUD surveillance (Acute) Counseling for hormone replacement therapy (Acute) Well woman exam (Acute) Medical History Snoring Sciatica Plantar fascial fibromatosis Obesity Knee pain Insomnia Idiopathic osteoarthritis Hyperlipidemia Hip pain Ganglion and cyst of synovium, tendon and bursa Depressive disorder Deformity Carpal tunnel syndrome Calcaneal spur of right foot Arthropathy Surgical History History of bilateral total hip arthroplasty (07/06/23) Ganglion cyst of finger of right hand Achilles tendonitis osteotomy and tendon repair - left Status post carpal tunnel release of both wrists Status post cholecystectomy Status post tubal ligation History of section Family History Mother Hypertension Father Heart disease Social History Smoking/Tobacco Use Status: Former Tobacco Use Quit Date: 05/17/13 Smoking risk assessment performed?: Yes Alcohol Intake: current Alcohol Intake frequency: holidays/special occasions only Alcohol type: wine Drug use: Never Substance use type: does not use Housing: house Do you feel safe at home: Yes Do you feel safe in your relationship?: Yes Meds Allergies and Home Medications Allergies Allergy/AdvReac Type Severity Reaction Status Date / Time meperidine HCl [From Demerol] Allergy Intermediate Hives Verified 09/19/23 17:24 diphenhydramine HCl Allergy Mild Skin Rash Verified 09/19/23 17:24 [From Benadryl] aspirin Allergy Hives Verified 09/19/23 17:24 cyclobenzaprine HCl Allergy Hives Verified 09/19/23 17:24 [From Flexeril] Home Medications Medication Instructions Recorded Confirmed Type sertraline 100 mg tablet 150 mg PO DAILY 03/20/22 09/19/23 History tramadol 50 mg tablet 50 mg PO Q12H PRN 03/20/22 09/19/23 History gabapentin 100 mg capsule 300 mg PO TID 12/04/22 09/19/23 History magnesium 250 mg tablet 500 mg PO DAILY 12/04/22 09/19/23 History losartan 25 mg tablet 25 mg PO DAILY 06/07/23 09/19/23 History acetaminophen 500 mg tablet 1,000 mg (2 x 500 mg) PO Q8H PRN 07/06/23 09/19/23 Rx pain #90 tabs celecoxib 200 mg capsule (Celebrex) 200 mg PO BID PRN #60 caps 07/06/23 09/19/23 Rx docusate sodium 100 mg capsule 100 mg PO BID #30 caps 07/06/23 09/19/23 Rx (Colace) prednisone 20 mg tablet 40 mg PO DAILY 09/19/23 09/19/23 History Exam Const General: cooperative, comfortable and no acute distress Nutritional Appearance: obese Orientation: alert, awake and oriented x3 HENMT Head: normal to inspection Face and sinus: normal facial exam Chest Chest: normal inspection of the chest Resp Effort & Inspection: normal respiratory effort Cardio Rate: regular rate Rhythm: regular rhythm GI Inspection: normal to inspection Palpation: soft Neuro General: patient alert, patient awake, patient oriented x3, tone normal, moves all extremities and no focal motor deficits Cognition: normal cognition Speech: speech normal Motor: muscle tone normal throughout and strength 5/5 throughout Extrem General: normal to inspection and full ROM Results Labs 09/19/23 17:40 09/19/23 17:40 Labs: Laboratory Results - last 24 hr 09/19/23 09/19/23 17:40 20:00 WBC 18.97 H RBC 4.76 Hgb 13.4 Hct 40.9 MCV 86 MCH 28.2 MCHC 32.8 RDW 13.7 Plt Count 370 MPV 10.3 Immature Gran % 2.6 Neutrophils % 77.4 Lymphocytes % 11.7 Monocytes % 7.9 Eosinophils % 0.1 Basophils % 0.3 Nucleated RBC % 0.0 Absolute Neutrophils 14.68 H Absolute Lymphocytes 2.22 Absolute Monocytes 1.50 H Absolute Eosinophils 0.02 Absolute Basophils 0.06 Sodium 138 Potassium 3.3 L Chloride 99 Carbon Dioxide 28.6 Anion Gap 10.4 BUN 17 Creatinine 0.6 Est GFR (CKD-EPI 2020) 103.98 Glucose 127 H Calcium 9.1 Magnesium 1.8 Total Bilirubin 0.5 AST 15 ALT 39 Alkaline Phosphatase 115 Troponin I < 50 < 50 Total Protein 7.5 Albumin 2.6 L Last Vital Signs Temp 36.9 C 09/19/23 17:11 Pulse 71 09/20/23 08:00 Resp 17 09/20/23 08:30 BP 189/103 H 09/20/23 08:00 Pulse Ox 93 09/20/23 08:30 Time Spent Time spent with Patient: 40-54 minutes Time was spent: preparing to see the patient(eg.review tests), obtaining and/or reviewing separately otained hiistory, ordering medications,tests, procedures, indepentently interpreting results and counseling the patient
[2023-09-20] MEDS: Ketorolac 30 MG/ML VIAL IVP ×2 (13:42→19:45)
--- NOTE | 2023-09-20 14:40 | NUR.NOTE ---
Updated Hospitalist that pt's urine is pink in [place]. Nursing Note:
[2023-09-20] MEDS: Gabapentin 300 MG CAP PO ×2 (14:51→19:44)
--- NOTE | 2023-09-20 14:59 | PHA.REVIEW2 ---
Pharmacy Admission Review Admission Clinical Review Admission Pharmacy Review: (Updated 09/20/23 @ 10:55 by Michoacano Alonzo MD) Back pain (Acute) meperidine HCl [From Demerol] Allergy (Intermediate, Verified 09/19/23 17:24) Hives diphenhydramine HCl [From Benadryl] Allergy (Mild, Verified 09/19/23 17:24) Skin Rash aspirin Allergy (Verified 09/19/23 17:24) Hives cyclobenzaprine HCl [From Flexeril] Allergy (Verified 09/19/23 17:24) Hives Resuscitation Status Full Code Height 4 ft 1 in Weight 119.295 kg Pharmacy Admission Review Renal Dosing Renal Dosing: BUN 17 mg/dL (7-18) 09/19/23 17:40 Creatinine 0.6 mg/dL (0.55-1.02) 09/19/23 17:40 Medications needing adjustments: Reviewed (CrCl 101.73 mL/min) List of meds needing interventions: Current medications are okay Anticoagulation Anticoagulation: Hgb 13.4 g/dL (11.2-15.7) 09/19/23 17:40 Hct 40.9 % (36.0-46.0) 09/19/23 17:40 Plt Count 370 10^3/uL (130-400) 09/19/23 17:40 Creatinine 0.6 mg/dL (0.55-1.02) 09/19/23 17:40 DVT Prophylaxis: Reviewed (None at this time, currently observation. Reach out to provider if patient remains inpatient tomorrow.) Relevant Labs Relevant Labs: Sodium 138 mmol/L (136-145) 09/19/23 17:40 Potassium 3.3 mmol/L (3.5-5.1) L 09/19/23 17:40 Chloride 99 mmol/L (98-107) 09/19/23 17:40 Magnesium 1.8 mg/dL (1.8-2.4) 09/19/23 17:40 Electrolytes, C-Reactive P, ESR: Reviewed (K 3.3, WBC 18.97, glucose 127) Cardiac Review Cardiac Review: Troponin I < 50 ng/L (< or =60) 09/19/23 20:00 Blood Pressure 161/88 1235 Blood Pressure 161/88 1232 Blood Pressure 172/88 1231 Blood Pressure 172/88 1201 Blood Pressure 163/90 1101 Blood Pressure 174/83 1001 Blood Pressure 186/106 0900 Blood Pressure 189/103 0800 Blood Pressure 186/81 0701 Blood Pressure 201/102 0600 Blood Pressure 192/104 0501 Blood Pressure 206/97 0401 BP, HR, EF%: Reviewed (HR WNL, BP 161/88) QTc Review QTc: Reviewed (462 from 09/19/23) IV to PO Switch IV Medications: Reviewed Home Meds Home Med List reviewed: Reviewed Relevent Home Meds Not ordered & why?: Celecoxib (on hold per H+P) Current Meds Current Medication Order Review: Intervened Comments: Changed gabapentin order from 300mg TID to 300mg HS based on fill history that says 1-3 capsules at night
[2023-09-20] MEDS: Acetaminophen 325 MG TAB 650 MG PO ×2 (15:57→19:44)
--- NOTE | 2023-09-20 18:52 | RESPIRATORY ---
Addendum entered by Tara Cisneros 09/21/23 08:55: ResMed AirSense II - Auto Set 12-15, Starting pressure 4, No O2 bleed-in, Nasal Pillows, DME: [employer] Note: Spoke with patient about JULIO diagnosis and she indicated that she had someone bringing in her home unit this evening. She wasn't sure of her settings but said it was a ResMed through [employer]. Night RT to check machine when it arrives and confirm settings.
[2023-09-20] MEDS: Docusate Sodium 100 MG CAP PO (19:44)
[2023-09-20] MEDS: Melatonin 3 MG TAB PO (19:44)
[2023-09-21] MEDS: Ketorolac 30 MG/ML VIAL IVP ×4 (01:50→21:24)
[2023-09-21 07:14] VITALS: BP 169/90; PULSE 68; RESP 17; TEMP 36.7; O2SAT 96
[2023-09-21] MEDS: Lidocaine 5% Patch 2 PATCH TP (07:37)
[2023-09-21] MEDS: Gabapentin 300 MG CAP PO ×4 (07:37→21:03)
[2023-09-21] MEDS: predniSONE 20 MG TAB 40 MG PO (07:37)
[2023-09-21] MEDS: Magnesium Oxide 400 MG TAB PO (07:37)
[2023-09-21] MEDS: Sertraline 100 MG TAB 150 MG PO (07:38)
[2023-09-21] MEDS: Acetaminophen 325 MG TAB 650 MG PO ×4 (07:38→21:01)
[2023-09-21] MEDS: Losartan 25 MG TAB PO (07:38)
[2023-09-21] MEDS: Normal Saline Flush 10 ML SYR IVP ×2 (07:40→21:23)
[2023-09-21] MEDS: traMADol 50 MG TAB PO ×2 (08:53→21:01)
--- NOTE | 2023-09-21 11:10 | PT.INTREAT ---
PT Notes Visit Reasons: Intractable Pain Date: 09/21/23 PRECAUTIONS: Activity as tolerated. SUBJECTIVE: pt in bed reporting pain has been properly managed here in medsurg, positive hematuria, agreed to participating with therapy session. Pt seen again after lunch, pt reports she is ready to go back to bed but is willing to gait train first. OBJECTIVE: ?Parada catheter ? PAIN: 11/23 with activity (am), 09/23 with activity (pm) VITALS: monitored by nursing ? Therapeutic Activities 45671: Direct one-on-one instruction in dynamic activities to improve functional performance. ?? BED MOBILITY/TRANSFERS? Rolling L/R: supervision Supine-sit: ?supervision ? Sit-supine: ? supervision ? Sit-stand: ? ?SBA ? Stand-sit: ??SBA ? Bed-Chair:? ?SBA ? Chair-bed: SBA Provided skilled cues and instruction on performance and technique throughout. Gait Training 90833: Direct one-on-one instruction and skilled instruction in: Employing an assistive device Modified weight-bearing status Movement sequencing Turning and movement with proper form Provided verbal cues for equipment management and technique Provided instruction in gait pattern Patient education regarding pacing and breathing techniques to maximize activity tolerance? GAIT? Assistive Device: ?? FWW ? Weight bearing: FWB Assist: ? ?SBA? Distance:?? 100'x1, 20'x2 (am), 100'x1 (pm) ? Deviation: ? Anterior trunk lean, wide KANCHAN, slow apple, short step length, low step height. ? Standing straighter gait training in the pm.? ASSESSMENT:?Pt reports the activity was getting easier, pain is present but not as high as yesterday. pt showing good effort to improve on standing posture while gait training. PLAN: Continue with balance training, global strengthening and general conditioning for improved safety, mobility and activity tolerance until pt is ready for DC. TREATMENT CODE/TIME: [id number], [id number] 30mins (10:42-11:12am) [id number] 15mins (1:44-1:59pm)
--- NOTE | 2023-09-21 13:36 | PGE_ITS ---
Date of Service Date of service: 09/21/23 Time of Service: 13:36 Assessment and Plan Assessment and plan (1) Back pain: Status: Acute Assessment and plan: Reports improvement in pain when compared to yesterday but still having pain no symptoms of cauda equina or cord compression, CT imaging with Degenerative changes mainly of the facet joints. No acute abnormality identified. MRI if develops concerning symptoms no trauma super morbid obesity will continue steroids as initiated in the ED yesterday scheduled tylenol, toradol, and lidocaine patches tramadol prn consider flexeril. PT following with anticipated discharge to a skilled rehabilitation facility Case management following with referrals pending (2) JULIO (obstructive sleep apnea): Status: Chronic Assessment and plan: home cpap (3) Chronic pain syndrome: Status: Chronic Assessment and plan: continue gabapentin. holding celebrex now on toradol discussed with DR Frances Subjective Subjective Patient reports: no new complaints, feels better, tolerating liquids well, tole rating a regular diet, voiding w/o difficulty (Has indwelling Parada catheter) and afebrile Exam Const General: cooperative, comfortable and no acute distress Nutritional Appearance: obese Orientation: alert, awake and oriented x3 HENMT Head: normal to inspection Face and sinus: normal facial exam Chest Chest: normal inspection of the chest Resp Effort & Inspection: normal respiratory effort Cardio Rate: regular rate Rhythm: regular rhythm GI Inspection: normal to inspection Palpation: soft Neuro General: patient alert, patient awake, patient oriented x3, tone normal, moves all extremities and no focal motor deficits Cognition: normal cognition Speech: speech normal Motor: muscle tone normal throughout and strength 5/5 throughout Extrem General: normal to inspection and full ROM Objective Last Vital Signs Temp 36.7 C 09/21/23 07:14 Pulse 68 09/21/23 07:14 Resp 17 09/21/23 07:14 BP 169/90 H 09/21/23 07:14 Pulse Ox 96 09/21/23 07:14 Time Spent with Patient Time Spent with Patient: 25-34 minutes Time was spent: preparing to see the patient(eg.review tests), obtaining and/or reviewing separately otained hiistory, ordering medications,tests, procedures, indepentently interpreting results, counseling the patient and care coordination
--- NOTE | 2023-09-21 15:46 | PDOC.CMIN ---
Date of service: 09/21/23 Time of Service: 15:46 Care Management Initial Assmt Initial Assessment REASON FOR HOSPITALIZATION:: Intractable Pain PREVIOUS FUNCTIONAL STATUS/SOCIAL/FAMILY SUPPORTS:: Rox resides in [place] with her SO, Alex. Her daughters, Megan and Lilly reside locally and are supportive. 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 She has had ongoing medical issues over the last few months which are currently limiting her mobility. CURRENT FUNCTIONAL STATUS:: Rox is lying in bed, Alex and Lilly at her bedside. She has just worked with PT. SNF discussion; Rox wants to discuss with family, reporting no one is happy about the idea of Rox going to SNF; is unsure if she has family support enough to return home; catheter in place. CM reviewed options; updated [employer] INSPECTOR. ADVANCE DIRECTIVES:: None on file. Has patient been provided with info about the portal/API?: Yes Did the patient sign up for the portal?: Yes CODE STATUS:: Full Code INSURANCE COVERAGE / FINANCIAL ISSUES:: Medicaid Only CURRENT HOME/COMMUNITY SERVICES/EQUIPMENT:: None, currently. PRIMARY CARE PHYSICIAN:: Percy Roche POTENTIAL DISCHARGE NEEDS:: SNF [id number] PATIENT/FAMILY EDUCATION NEEDS:: Review discharge instructions, insurance limitations; SNF coordination ANTICIPATED BARRIERS TO DISCHARGE:: None identified. TRANSPORTATION:: Via private vehicle with family. PLAN:: Rox will return home when ready per MD, or to SNF-if accepted. Transport dependent on mobility. PFSH All Active Problems (Updated 09/20/23 @ 10:55 by Michoacano Alonzo MD) Back pain (Acute) Anxiety (Chronic) JULIO (obstructive sleep apnea) (Chronic) CPAP Pain disorder associated with psychological and physical factors (Acute) Chronic pain (Chronic) Psychological and behavioral factors associated with disorders or diseases classified elsewhere (Acute) Lumbosacral spondylosis without myelopathy (Acute) Chronic pain syndrome (Chronic) Osteoarthritis of knees, bilateral (Chronic) Depo-medrol injection: 06/07/2023; 03/08/2023; 12/04/22; 08/17/2022; 04/20/2022 Encounter for Pap smear of cervix with HPV DNA cotesting (Acute) IUD surveillance (Acute) Counseling for hormone replacement therapy (Acute) Well woman exam (Acute) Medical History Snoring Sciatica Plantar fascial fibromatosis Obesity Knee pain Insomnia Idiopathic osteoarthritis Hyperlipidemia Hip pain Ganglion and cyst of synovium, tendon and bursa Depressive disorder Deformity Carpal tunnel syndrome Calcaneal spur of right foot Arthropathy Surgical History History of bilateral total hip arthroplasty (07/06/23) Ganglion cyst of finger of right hand Achilles tendonitis osteotomy and tendon repair - left Status post carpal tunnel release of both wrists Status post cholecystectomy Status post tubal ligation History of section Family History Mother Hypertension Father Heart disease Social History Smoking/Tobacco Use Status: Former Tobacco Use Quit Date: 05/17/13 Smoking risk assessment performed?: Yes Alcohol Intake: current Alcohol Intake frequency: holidays/special occasions only Alcohol type: wine Drug use: Never Substance use type: does not use Housing: house Do you feel safe at home: Yes Do you feel safe in your relationship?: Yes SDOH(Care Management) Screening Will the Patient Participate in the Screening?: Declined to provide
[2023-09-21 15:54] VITALS: BP 149/81; PULSE 79; RESP 18; TEMP 37.2; O2SAT 94
[2023-09-21] MEDS: Docusate Sodium 100 MG CAP PO (21:02)
[2023-09-21] MEDS: Patch Removal LIDOCAINE 2 EACH TP (21:03)
[2023-09-21] MEDS: Melatonin 3 MG TAB PO (21:03)
[2023-09-21 23:19] VITALS: BP 141/47; PULSE 66; RESP 16; TEMP 36.6; O2SAT 94
[2023-09-22] MEDS: Ketorolac 30 MG/ML VIAL IVP ×3 (02:07→14:34)
[2023-09-22 08:33] VITALS: BP 157/87; PULSE 80; RESP 19; TEMP 37.3; O2SAT 94
[2023-09-22] MEDS: Normal Saline Flush 10 ML SYR IVP (09:13)
[2023-09-22] MEDS: Acetaminophen 325 MG TAB 650 MG PO ×3 (09:14→15:38)
[2023-09-22] MEDS: Losartan 25 MG TAB PO (09:15)
[2023-09-22] MEDS: Gabapentin 300 MG CAP PO ×2 (09:15→14:34)
[2023-09-22] MEDS: Sertraline 100 MG TAB 150 MG PO (09:16)
[2023-09-22] MEDS: predniSONE 20 MG TAB 40 MG PO (09:16)
[2023-09-22] MEDS: Magnesium Oxide 400 MG TAB PO (09:17)
--- NOTE | 2023-09-22 09:31 | PT.INTREAT ---
PT Notes Visit Reasons: Intractable Pain Date: 09/22/23 PRECAUTIONS: Activity as tolerated. SUBJECTIVE: Pt sitting on the EOB slumped forward on FWW, reports pain in between her scapula, reports the pain has been bothering her since early this morning. agreed to participating with therapy. OBJECTIVE: ?Parada catheter ? PAIN: 12/24 in between scapula VITALS: monitored by nursing ? Therapeutic Activities 26984: Direct one-on-one instruction in dynamic activities to improve functional performance. ?? BED MOBILITY/TRANSFERS? Rolling L/R: mod a Supine-sit: ?mod a? Sit-supine: ? mod a? Sit-stand: ? ?CGA ? Stand-sit: ??CGA? Bed-Chair:? ?CGA? Chair-bed: CGA Provided skilled cues and instruction on performance and technique throughout. Gait Training 48092: Direct one-on-one instruction and skilled instruction in: Employing an assistive device Modified weight-bearing status Movement sequencing Turning and movement with proper form Provided verbal cues for equipment management and technique Provided instruction in gait pattern Patient education regarding pacing and breathing techniques to maximize activity tolerance? GAIT? Assistive Device: ?? FWW ? Weight bearing: FWB Assist: ? ?SBA? Distance:?? 30'x2 (am)? Deviation: ? Anterior trunk lean, wide KANCHAN, slow apple, short step length, low step height. ? ASSESSMENT:?Pt received manual therapy doing trigger point release for rhomboid muscle, upper traps and bilateral cervical paraspinal with pt reporting positive response allowing pt to tolerate transfer going from EOB to toilet, toilet ro recliner. Consulted with PT regarding additional intervention of manual therapy to address pt's pain symptoms. PLAN: Continue with balance training, global strengthening and general conditioning for improved safety, mobility and activity tolerance until pt is ready for DC. TREATMENT CODE/TIME: [id number] 20mins (8:30-8:50am)
[2023-09-22] MEDS: Lidocaine 5% Patch 2 PATCH TP (10:32)
--- NOTE | 2023-09-22 11:23 | DSE_ITS ---
Date of service: 09/22/23 Time of Service: 11:23 DS: Diagnosis Discharge Diagnosis (1) Back pain: Status: Acute (2) JULIO (obstructive sleep apnea): Status: Chronic (3) Chronic pain syndrome: Status: Chronic Discharge Plan Disposition Patient Disposition: Home W/Home Health Services Condition: Improving Discharge Details Reason For Visit: Intractable Pain Admit Date/Time: 09/20/23 10:52 Admit Provider: Brett Elaine Attending Provider: Brett Elaine Primary Care Provider: Percy Roche Hospital Course Hospital Course: This is a 57-year-old female presented to the ED via EMS with a chief complaint of lower back pain, nausea vomiting dry heaves diaphoresis and chest pain which radiates down her right arm. She is followed by pain clinic and recently had an ablation to her lower lumbar region and following that has had intractable pain. She reports that she had been on oxycodone until about she reports that she stopped taking that was placed on ibuprofen 800 mg. The night prior she began with some sharp shooting chest pain in between her shoulder blades rating down her right arm and continued lower back pain. Associated symptoms include the above-mentioned nausea diaphoresis. Upon arrival she is complaining of 9 out of 10 chest pain which she describes as sharp. She was given 3 sublingual nitros by EMS prior to arrival, 324 of aspirin and Zofran. She was ruled out for acute ACS. She does have a past medical history of obesity, insomnia, sciatica hyperlipidemia. She was admitted to hospitalist and continued on steroids, given lidocaine patch and scheduled apap and toradol. she was safely re-ambulated by PT with recommendations for home health PT services. she is stable and discharge to home. discussed with DR celine Lr Meds and New Rx's Prescriptions: New lidocaine 5 % Adhesive Patch,Medicated 2 patch topical DAILY Qty: 10 1RF methocarbamol 1,000 mg tablet 1,000 mg PO QID PRNQty: 20 0RF Continued gabapentin 100 mg capsule 300 mg PO TID sertraline 100 mg tablet 150 mg PO DAILY tramadol 50 mg tablet 50 mg PO Q12H PRN magnesium 250 mg tablet 500 mg PO DAILY losartan 25 mg tablet 25 mg PO DAILY acetaminophen 500 mg tablet 1,000 mg PO Q8H PRN Qty: 90 0RF Rx Instructions: Take two tablets up to every 8 hours as needed for pain celecoxib [Celebrex] 200 mg capsule 200 mg PO BID PRNQty: 60 0RF Rx Instructions: Take one tablet twice daily for pain and inflammation docusate sodium [Colace] 100 mg capsule 100 mg PO BID Qty: 30 0RF prednisone 20 mg tablet 40 mg PO DAILY Qty: 10 0RF Discharge Instructions Instructions: Back Pain (ED) Additional Instructions: No evidence for cardiac abnormality or blood clots in your lungs at this time. Please call the pain clinic tomorrow to discuss MRI with your doctor. You may also call [facility] [place] measurement specialist for further evaluation and treatment if needed. I will also refer you to physical therapy. Please discuss this with the pain clinic. Stand Alone Forms: Physical Therapy Referral, Nursing Discharge Form Referrals: [facility] [Provider Group] - None (Office will call you with appointment.) Percy Roche [Primary Care Provider] - None (Please call to make a follow up appointment for 1-2 weeks. ) Activity:: Activity as Tolerated Equipment/Supplies:: No Equipment Needed Diet:: As Tolerated Discharge Orders Discharge Orders: Discharge Order (Routine); Ordered 09/22/23 Ordered By: Natalie Frank Discharge Data Discharge Date/Time-TO BE ENTERED AT DEPARTURE: 09/22/23 15:58 DS: Summary Time Spent with Patient providing and/or coordinating discharge services: Less than 30 minutes Status at Discharge Functional status at discharge: uses cane/walker Overall status at discharge: patient is progressing back to baseline Mental Status: mental status grossly normal Speech and Movement: speech and movement normal Mood: congruent mood Affect: normal affect Quality:SDOH Health Related Social Needs: No Data to Display Exam Const General: cooperative, comfortable and no acute distress Nutritional Appearance: obese Orientation: alert, awake and oriented x3 HENMT Head: normal to inspection Face and sinus: normal facial exam Chest Chest: normal inspection of the chest Resp Effort & Inspection: normal respiratory effort Cardio Rate: regular rate Rhythm: regular rhythm GI Inspection: normal to inspection Palpation: soft Neuro General: patient alert, patient awake, patient oriented x3, tone normal, moves all extremities and no focal motor deficits Cognition: normal cognition Speech: speech normal Motor: muscle tone normal throughout and strength 5/5 throughout Extrem General: normal to inspection and full ROM Psych Mental Status: mental status grossly normal Speech and Movement: speech and movement normal Mood: congruent mood Affect: normal affect DS: Data Vitals/I&O Vitals and I&O: Vital Signs Temperature 37.3 C 09/22/23 08:33 Temperature Source Tympanic 09/22/23 08:33 Pulse 80 09/22/23 08:33 Pulse Rhythm Regular 09/22/23 10:34 Pulse 76 09/20/23 09:40 Respiratory Rate 19 09/22/23 08:33 Respiratory Effort Normal 09/22/23 10:34 Respiratory Depth Normal 09/22/23 10:34 Respiratory Pattern Normal 09/22/23 10:34 Blood Pressure 157/87 H 09/22/23 08:33 Blood Pressure Mean 118 09/20/23 12:01 Blood Pressure Position Sitting 09/19/23 17:11 Pulse Oximetry 94 09/22/23 08:33 Oxygen Delivery Method Room Air 09/22/23 08:33 Oxygen Flow Rate 0 09/22/23 08:33 Pain Level 9 09/22/23 08:33 Intake & Output 09/21/23 09/21/23 09/22/23 11:59 23:59 11:59 Intake Total 410 / 1610 1200 / 1610 Output Total 1000 / 1825 825 / 1825 1000 / 1000 Balance -590 / -215 375 / -215 -1000 / -1000 Intake: IV Oral 400 / 1600 1200 / 1600 Output: Urine 1000 / 1825 825 / 1825 1000 / 1000 Other: Urine Color [place] Yellow Straw [place] Urine Appearance Clear Clear Clear Voiding Methods Indwelling Catheter PFSH All Active Problems (Updated 09/23/23 @ 00:09 by ALVARO GRACE) Back pain (Acute) Anxiety (Chronic) JULIO (obstructive sleep apnea) (Chronic) CPAP Pain disorder associated with psychological and physical factors (Acute) Chronic pain (Chronic) Psychological and behavioral factors associated with disorders or diseases classified elsewhere (Acute) Lumbosacral spondylosis without myelopathy (Acute) Chronic pain syndrome (Chronic) Osteoarthritis of knees, bilateral (Chronic) Depo-medrol injection: 06/07/2023; 03/08/2023; 12/04/22; 08/17/2022; 04/20/2022 Encounter for Pap smear of cervix with HPV DNA cotesting (Acute) IUD surveillance (Acute) Counseling for hormone replacement therapy (Acute) Well woman exam (Acute) Medical History Snoring Sciatica Plantar fascial fibromatosis Obesity Knee pain Insomnia Idiopathic osteoarthritis Hyperlipidemia Hip pain Ganglion and cyst of synovium, tendon and bursa Depressive disorder Deformity Carpal tunnel syndrome Calcaneal spur of right foot Arthropathy Surgical History History of bilateral total hip arthroplasty (07/06/23) Ganglion cyst of finger of right hand Achilles tendonitis osteotomy and tendon repair - left Status post carpal tunnel release of both wrists Status post cholecystectomy Status post tubal ligation History of section Family History Mother Hypertension Father Heart disease Social History Smoking/Tobacco Use Status: Former Tobacco Use Quit Date: 05/17/13 Smoking risk assessment performed?: Yes Alcohol Intake: current Alcohol Intake frequency: holidays/special occasions only Alcohol type: wine Drug use: Never Substance use type: does not use Housing: house Do you feel safe at home: Yes Do you feel safe in your relationship?: Yes Time Spent with Patient Time Spent with Patient: 45-69 minutes Time was spent: preparing to see the patient(eg.review tests), obtaining and/or reviewing separately otained hiistory, ordering medications,tests, procedures, referring, communicating with other health rn progressive care unit, indepentently interpreting results and counseling the patient
--- NOTE | 2023-09-22 13:05 | PDOC.HHF2F_ITS ---
Home Health Referral Home Health Orders Clinical synopsis of why skilled professionals are needed: ambulatory dysfunction secondary to back pain, followed by pain clinic Medical diagnosis necessitation home health referral: intractable back pain, ambulatory dysfunction Physical Therapist: Check all that apply Increase strength & endurance for safe mobility at home: Ordered To design/establish home maintenance program: Ordered Fall reduction therapy program for patient with history of frequent falls: Ordered Home safety evaluation and teaching/gait training including stair management (if applicable): Ordered Home Bound Status Requires the aid of supportive device (check all that apply): Walker Describe why leaving home would require a considerable and taxing effort: Requires frequent rest periods and Safety Concerns: describe Encounter Date and Reason: I certify that a FTF encounter for this patient was performed on September 22, 2023 and that such encounter was related to the primary reason the patient requires home health services. The encounter was conducted in the following manner: * By me as the certifying physician, OXYGEN SYSTEM TESTER, PA or * By an inpatient physician, OXYGEN SYSTEM TESTER or PA during an inpatient stay who communicated findings to me, Certification And Authentication I certify that I composed the above information based on my clinical judgment relating to this patient's medical condition and, if applicable, clinical findings communicated to me by the NPP or inpatient physician who performed the FTF encounter. Name of Provider that will be monitoring home health services: Percy Roche
--- NOTE | 2023-09-22 13:35 | PDOC.CMDIS ---
Date of service: 09/22/23 Time of Service: 13:35 LACE Index Scoring Tool Questions: Length of Stay (in days): 2 Was the patient admitted via the E.D.?: Yes Comorbidities: Chronic Pulmonary Disease E.D. Visits: 1 Answers: Total Score: 8 Risk of Readmission: Low Risk Care Management Discharge Plan Reason for Hospitalization: Intractable Pain Discharge Plan: Rox will return home with new home health orders for PT, she will follow up with her PCP and plan of care as prescribed. She will transport via private vehicle with her significant other, Alex. CM continues to follow. Patient/Family Education Needs: Review discharge instructions, discuss Ask Me Three, self care needs upon discharge. Services Needed at Discharge: Home Health Care Services SDOH Health Related Social Needs: No Data to Display
[2023-09-22] MEDS: traMADol 50 MG TAB PO (14:34)
--- NOTE | 2023-09-22 16:39 | CHAPLAIN ---
Rox was speaking with Edna from Patient Experience when visited. Rox had concerns about her time in the ED and Edna was collecting Rox's feedback. Rox was getting ready to be discharged. We had a brief visit. She's looking forward to being home.
== END 2023-09-22 15:58 | disposition home health service (06) ==
LOC: ER 09-20 10:55 → MS 09-20 12:29
PROVIDERS: Registered Nurse Emergency; Admitting Provider Family Medicine; Emergency Provider Emergency Medicine; PCP Neuromusculoskeletal Medicine & OMM; Visit Provider Family Medicine
DX: M54.50 Low back pain, unspecified (principal); G89.4 Chronic pain syndrome; R07.89 Other chest pain; E66.01 Morbid (severe) obesity due to excess calories; Z68.45 Body mass index [BMI] 70 or greater, adult; M17.0 Bilateral primary osteoarthritis of knee; F41.0 Panic disorder [episodic paroxysmal anxiety]; Z79.899 Other long term (current) drug therapy; Z96.643 Presence of artificial hip joint, bilateral
CPT/HCPCS: 00123; 71275; 80053; 93005; 96365; 96374; 96375; 96376; 97116; 97162; 97530; 99285; 71045; 72131; 83735; 84484; 85025; 93010; 99222; 99231; 99238; G0378; J0131; J1885; J2270; J2405; J2919; J3490; J7512

== ENCOUNTER → 2023-10-07 09:47 | Outpatient (CLI) | payer MEDICAID, SELFPAY ==
--- NOTE | 2023-10-07 09:30 | DI.MRI_ITS ---
Exam(s) MR LUMBAR SPINE WO/W EXAM: MR LUMBAR SPINE WO/W CLINICAL HISTORY: lower back pain, after ablation, new weak rt foot, dorsalgia, M54.9. TECHNIQUE: Multiplanar multisequence MRI of the Lumbar spine was performed. COMPARISON: MR MR LS SPINE W/O CONTRAST from 03/21/2014 XR PAIN CLINIC LUMBAR SP 2V from 09/09/2023 FINDINGS: There are no interval MRI studies since 2013 our PACS. There is a complex peripherally enhancing posterior epidural fluid collection extending the entire le ngth of the lumbosacral spinal column to the S2 level and extending cranially beyond the upper field of view of this study which is upper T11 level. This is highly suspicious for epidural abscess and is causing significant compression of the thecal sac. Maximum transverse diameter measurement of this a bnormal epidural collection is at the L5-S1 level (1.7 cm) and maximum AP diameter of 0.9 cm also katie dent at this level. There is is adjacent to the right facet joint at L5-S1 level which exhibits abnor mal signal and surrounding enhancement and may be the epicenter of infection here. Enhancement at thi s level also involves the right neural foramen and right posterior paraspinal musculature. Conus medullaris is at normal level. However, it is significantly compressed. There is a prominent disc herniation at T12-L1 level which is posterior central and left paracentral and extends posteriorly 9 mm and is approximately 1.8 cm wide, significantly compressing the spinal c ord-conus medullaris. There are no other disc herniations and no evidence of discitis nor osteomyelitis. No compression fractures nor listhesis evident. And there is also abnormal signal in the left ileo psoas muscle with possible abscess at this level a partially included in the field of view of this MRI study.. IMPRESSION: 1. Large posterior epidural fluid collection extending the entire length of the lumbosacral spinal ca nal from S2 up to be on the field of view of this lumbar spine MRI study (T11 level). The most marked thecal sac compression is at L3-4 level. 2. Significant facet arthropathy in the lower lumbar spine and there is significant signal abnormalit y and enhancement around the right L5/S1 facet joint and neural foramen which may be the etiologic ep icenter for this sections process. 3. There is also a significant disc herniation at the T12-L1 level which is adding to the compression of the distal spinal cord-thecal sac. 4. There is also a left ileopsoas muscle abscess but this is only partially included in the field of view. This patient requires further imaging of the thoracic spine as well as the pelvic musculature. Referring provider immediately notified and patient was sent to the emergency room. Results also discussed by myself with the emergency room provider. DATA REPOSITORY:
[2023-10-07] MEDS: Normal Saline Flush 10 ML SYR IVP (11:22)
[2023-10-07] MEDS: Gadoterate meglumine 20 ML SYRINGE IVP (11:24)
--- NOTE | 2023-10-07 13:03 | DI.VRAD_ITS ---
Addendum created by Madelyn Mcdermott MD on 10/07/2023 1:34:55 PM EDT: THIS REPORT CONTAINS FINDINGS THAT MAY BE CRITICAL TO PATIENT CARE. The findings were verbally communicated via telephone conference with Melissa Mcgee at 1:34 PM EDT on 10/07/2023. The findings were acknowledged and understood. Initial report created on 10/07/2023 1:03:26 PM EDT: PROCEDURE INFORMATION: Exam: MR Lumbar Spine Without and With Contrast Exam date and time: 10/07/2023 11:09 AM Age: 57 years old Clinical indication: Low back pain; Patient HX: Patient had lumbar radiofrequency ablation 09/09/23. RT leg pain TECHNIQUE: Imaging protocol: Magnetic resonance imaging of the lumbar spine without and with contrast. Contrast material: DOTAREM; Contrast volume: 20 ml; Contrast route: INTRAVENOUS (IV); COMPARISON: CT LUMBAR SPINE WO 09/19/2023 10:04 PM FINDINGS: Bones/joints: Severe right facet arthropathy at L5-S1 prominent reactive edema in the right L5-S1 facet joint. Vertebral bodies are normal height and signal intensity. Spinal epidural space: Complex peripherally enhancing posterior epidural fluid collection in the visualized lower thoracic spine and lumbosacral spine, through the level of S1-S2. The thoracic spine is not visualized above the level of T11 and the epidural fluid collection extends above this. This is suspicious for epidural abscess. Measures a maximum transverse diameter 0.9 cm and maximum AP diameter 11 mm at the level of L5. It extends more to the right the level of L5 and S1 where there is associated soft tissue thickening and enhancement extending into the right neural foramen, right facet joint, and right posterior paraspinal muscles. Spinal cord: Visualized cord, conus medullaris and cauda equina are unremarkable without compression. L1-L2: No significant disc bulge or herniation. Posterior epidural fluid collection causes mass effect and mild compression of the thecal sac. The bilateral neural foramen are patent.. L2-L3: No significant disc bulge or herniation. Posterior epidural fluid collection causes mass effect and mild compression of the thecal sac. The bilateral neural foramen are patent.. L3-L4: No significant disc bulge or herniation. Severe facet arthropathy. Posterior epidural fluid collection which is partially eccentric to the right, causes compression of the thecal sac and of the nerve roots in the thecal sac. See axial series [id number], image 11. The neural foramina patent. L4-L5: No significant disc bulge or herniation. Severe facet arthropathy. Posterior epidural fluid collection causes mass effect and deformity of the thecal sac. No nerve root compression identified. The neural foramina patent.. L5-S1: No significant disc bulge or herniation. Severe facet arthropathy. The facet arthropathy and posterior epidural fluid collection causes compression of the right L5 and S1 nerve roots. The thecal sac is deformed by the right posterior epidural fluid collection. Mild right foraminal narrowing. Patent left neural foramen. Soft tissues: Subcutaneous edema posterior paraspinal muscles. Edema and enhancement in the posterior paraspinal muscles, worse on right and most prominent in the lower lumbar spine. Edema the bilateral iliacus muscles and psoas muscles. The left ileus psoas muscles are smaller in the right. There is a focal area of signal abnormality in the proximal left iliacus muscle measuring approximately 0.6 cm in diameter which could be an abscess. This is best seen on the axial T2 and T1 series [id number] and [id number], image 1 IMPRESSION: 1. Large posterior epidural peripherally enhancing fluid collection extending from the lower thoracic through the upper sacral spine, highly suspicious for an epidural abscess. Upper extent of fluid collection is excluded from field of view in the thoracic spine 2. Thecal sac is compressed by the epidural fluid collection in the lumbar spine, most marked at L3-L4 3. Severe facet arthropathy lower lumbar spine 4. Right L5 and S1 nerve roots are compressed by fluid collection and facet arthropathy of the level of L5-S1 5. Possible small abscess in the left ileopsoas muscle. CT pelvis with intravenous contrast would be helpful in further evaluation. Dictated and Authenticated by: Madelyn Mcdermott MD. Ordering:KIERAN Torres MD
== END ==
PROVIDERS: PCP Neuromusculoskeletal Medicine & OMM; Visit Provider Physician Assistant
DX: M51.35 Other intervertebral disc degeneration, thoracolumbar region (principal)
CPT/HCPCS: 72158

== ENCOUNTER 2023-10-07 12:50 | Emergency (ER) | payer MEDICAID, SELFPAY ==
[2023-10-07] VITALS (44 sets, daily range): BP systolic 156–245; BP diastolic 66–124; PULSE 76–97; RESP 18; TEMP 36.8; O2SAT 90–98
[2023-10-07 13:42] LABS: Lactate 1.1 mmol/L (0.6-1.4)
[2023-10-07 13:43] LABS: Abs Immature Grans 0.05 10^3/uL (0.0-0.06); Absolute Basophil Count 0.02 10^3/uL (0.0-0.2); Absolute Eosinophil Count 0.02 10^3/uL (0.0-0.7); Absolute Lymphocyte Count 1.38 10^3/uL (1.2-3.4); Absolute Monocyte Count 0.33 10^3/uL (0.1-0.8); Absolute Neutrophil Count 7.24 10^3/uL (1.2-6.7); Basophils % 0.2 %; Eosinophils % 0.2 %; HCT 40.9 % (36.0-46.0); HGB 12.7 g/dL (11.2-15.7); Immature Grans % 0.6 %; Lymphocytes % 15.3 %; MCH 27.9 pg (27.0-33.0); MCHC 31.1 % (32.0-36.0); MCV 90 fL (80-95); MPV 9.7 fL (8.0-11.0); Monocytes % 3.7 %; Platelet Count 279 10^3/uL (130-400); RBC 4.56 10^6/uL (3.93-5.22); RDW 15.1 % (11.7-14.6); RDW-SD 49.6 fL; WBC 9.04 10^3/uL (4.4-10.8)
[2023-10-07 13:45] LABS: ESR 72 mm/hr (0-30)
[2023-10-07 13:59] LABS: ALT 20 U/L (14-59); AST 7 U/L (15-37); Albumin 3.1 g/dL (3.4-5.0); Alkaline Phosphatase 68 U/L (46-116); Anion Gap 8.4 mmol/L (3-11); BUN 10 mg/dL (7-18); Bilirubin, Total 0.5 mg/dL (0.2-1.0); C-Reactive Protein 2.48 mg/dL (<or=0.5); CO2 26.6 mmol/L (21.0-32.0); CREATININE 0.6 mg/dL (0.55-1.02); Calcium 9.4 mg/dL (8.5-10.1); Chloride 102 mmol/L (98-107); Estimated GFR 103.98 (mL/min/1.73m2); Glucose 153 mg/dL (74-106); Potassium 4.2 mmol/L (3.5-5.1); Sodium 137 mmol/L (136-145); Total Protein 7.7 g/dL (6.4-8.2)
[2023-10-07] MEDS: cefTRIAXone 2 GM/50 ML BAG IVPB (14:15)
[2023-10-07 14:22] LABS: Bilirubin Negative (Negative); Blood Negative (Negative); Clarity Clear (Clear); Glucose Negative (Negative); Ketones Negative (Negative); Leukocyte Esterase Negative (Negative); Nitrite Negative (Negative); Urobilinogen 0.2 mg/dL (Up to 0.2); pH 6.5 (5-8)
--- NOTE | 2023-10-07 15:37 | ED.GENADUL_ITS ---
Discharge Plan Disposition Patient Disposition: Transfer-Acute Inpatient Care Specific Acute Inpt Facility: [facility] [place] Condition: Stable Discharge Details Clinical Impression: Spinal epidural abscess Primary Care Provider: Percy Roche ED Provider: Saw Vera Home Meds and New Rx's Prescriptions: No Action gabapentin 100 mg capsule 300 mg PO TID sertraline 100 mg tablet 150 mg PO DAILY tramadol 50 mg tablet 50 mg PO Q12H PRN magnesium 250 mg tablet 500 mg PO DAILY losartan 25 mg tablet 25 mg PO DAILY acetaminophen 500 mg tablet 1,000 mg PO Q8H PRN Qty: 90 0RF Rx Instructions: Take two tablets up to every 8 hours as needed for pain lidocaine 5 % Adhesive Patch,Medicated 2 patch topical DAILY Qty: 10 1RF methocarbamol 1,000 mg tablet 1,000 mg PO QID PRNQty: 20 0RF Discharge Data Discharge Date/Time-TO BE ENTERED AT DEPARTURE: 10/07/23 19:47 HPI General Date/Time Provider Initiated Documentation: 10/07/23 12:52 . HPI Narrative: 49-year-old female presents from radiology with report of back pain and MRI consistent with epidural abscess. Patient states she has had pain approximately 1 week. She had a radiofrequency Ablation of medial branches - bilateral L3, L4, L5 and lateral branches of bilateral S1.performed on September 08 and her symptoms started 3 days later. Patient also had an spinal injection for bilateral hip replacements performed in June. Patient was evaluated in the emergency department for back pain and admitted, however back pain did not improve. Patient presented to urgent care today and had an MRI ordered. MRI is reportedly positive for epidural abscess and patient has some right lower extremity weakness and patient was sent to the emergency department for assessment. Patient denies any fever or chills. She states she is in excruciating back pain. She denies any changes in bowel or bladder. Denies any history of illicit drug use. States she has had some mild weakness in her right lower extremity. Related Data Home Medications Medication Instructions Recorded Confirmed sertraline 100 mg tablet 150 mg PO DAILY 03/20/22 10/07/23 tramadol 50 mg tablet 50 mg PO Q12H PRN 03/20/22 10/07/23 gabapentin 100 mg capsule 300 mg PO TID 12/04/22 10/07/23 magnesium 250 mg tablet 500 mg PO DAILY 12/04/22 10/07/23 losartan 25 mg tablet 25 mg PO DAILY 06/07/23 10/07/23 acetaminophen 500 mg tablet 1,000 mg (2 x 500 mg) PO Q8H PRN 07/06/23 10/07/23 pain #90 tabs lidocaine 5 % topical patch 2 patch topical DAILY #10 ea 09/22/23 10/07/23 methocarbamol 1,000 mg tablet 1,000 mg PO QID PRN #20 tabs 09/22/23 10/07/23 Previous Rx's Medication Instructions Recorded acetaminophen 500 mg tablet 1,000 mg (2 x 500 mg) PO Q8H PRN 07/06/23 pain #90 tabs lidocaine 5 % topical patch 2 patch topical DAILY #10 ea 09/22/23 methocarbamol 1,000 mg tablet 1,000 mg PO QID PRN #20 tabs 09/22/23 Allergies Allergy/AdvReac Type Severity Reaction Status Date / Time meperidine HCl [From Demerol] Allergy Intermediate Hives Verified 10/07/23 12:58 diphenhydramine HCl Allergy Mild Skin Rash Verified 10/07/23 12:58 [From Benadryl] aspirin Allergy Hives Verified 10/07/23 12:58 cyclobenzaprine HCl Allergy Hives Verified 10/07/23 12:58 [From Flexeril] General Stated Complaint: Nk/Back Pain MARINE: 3 Exam Narrative Exam Narrative: Alert, oriented, pleasant 57-year-old female, pupils equal round reactive to light and accommodation, no respiratory distress, cardiac rate rhythm regular, distal pulses intact, no abdominal tenderness, lumbar spine tenderness appreciated on exam without any visible evidence of trauma, no rashes or lesions, alert and oriented x 4, strength 3 out of 5 with dorsiflexion and plantarflexion of right lower extremity, strength 5 out of 5 on left lower extremity with plantarflexion and dorsiflexion, negative Babinski bilaterally, sensation intact to bilateral lower extremities, negative straight leg raise Course Vital Signs Vital signs: Vital Signs Temperature 36.8 C 10/07/23 12:54 Pulse 97 H 10/07/23 12:54 Respiratory Rate 18 10/07/23 12:54 Pulse Oximetry 95 10/07/23 12:54 Temperature 36.8 C 10/07/23 12:54 Pulse 82 10/07/23 14:33 Respiratory Rate 18 10/07/23 12:54 Respiratory Effort Normal 10/07/23 12:57 Blood Pressure 169/83 H 10/07/23 14:33 Blood Pressure Mean 113 10/07/23 14:33 Pulse Oximetry 96 10/07/23 14:33 Oxygen Delivery Method Room Air 10/07/23 12:54 Oxygen Flow Rate 0 10/07/23 12:54 Pain Level 8 10/07/23 14:16 Lab/Test Results Lab/Test Results: 10/07/23 13:48 Blood Blood Culture - Pending 10/07/23 13:36 Blood Blood Culture - Pending Laboratory Tests Range/Units 10/07/23 10/07/23 13:36 14:13 WBC (4.4-10.8) 10^3/uL 9.04 RBC (3.93-5.22) 10^6/uL 4.56 Hgb (11.2-15.7) g/dL 12.7 Hct (36.0-46.0) % 40.9 MCV (80-95) fL 90 MCH (27.0-33.0) pg 27.9 MCHC (32.0-36.0) % 31.1 L RDW (11.7-14.6) % 15.1 H Plt Count (130-400) 10^3/uL 279 MPV (8.0-11.0) fL 9.7 Immature Gran % % 0.6 Neutrophils % % 80.0 Lymphocytes % % 15.3 Monocytes % % 3.7 Eosinophils % % 0.2 Basophils % % 0.2 Nucleated RBC % (0.0-0.3) % 0.0 Absolute Neutrophils (1.2-6.7) 10^3/uL 7.24 H Absolute Lymphocytes (1.2-3.4) 10^3/uL 1.38 Absolute Monocytes (0.1-0.8) 10^3/uL 0.33 Absolute Eosinophils (0.0-0.7) 10^3/uL 0.02 Absolute Basophils (0.0-0.2) 10^3/uL 0.02 ESR (0-30) mm/hr 72 H VBG Lactate (0.6-1.4) mmol/L 1.1 Sodium (136-145) mmol/L 137 Potassium (3.5-5.1) mmol/L 4.2 Chloride (98-107) mmol/L 102 Carbon Dioxide (21.0-32.0) mmol/L 26.6 Anion Gap (3-11) mmol/L 8.4 BUN (7-18) mg/dL 10 Creatinine (0.55-1.02) mg/dL 0.6 Est GFR (CKD-EPI 2020) (mL/min/1.73m2) 103.98 Glucose (74-106) mg/dL 153 H Calcium (8.5-10.1) mg/dL 9.4 Total Bilirubin (0.2-1.0) mg/dL 0.5 AST (15-37) U/L 7 L ALT (14-59) U/L 20 Alkaline Phosphatase (46-116) U/L 68 C-Reactive Protein (<or=0.5) mg/dL 2.48 H Total Protein (6.4-8.2) g/dL 7.7 Albumin (3.4-5.0) g/dL 3.1 L Urine Color (Yellow) Yellow Urine Clarity (Clear) Clear Urine pH (5-8) 6.5 Ur Specific [place] (1.005-1.025) 1.020 Urine Protein (Neg-Trace) mg/dL Negative Urine Ketones (Negative) mg/dL Negative Urine Blood (Negative) Negative Urine Nitrite (Negative) Negative Urine Bilirubin (Negative) Negative Urine Urobilinogen (Up to 0.2) mg/dL 0.2 Ur Leukocyte Esterase (Negative) Negative Urine Glucose (Negative) mg/dL Negative Medical Decision Making 57-year-old female presenting secondary to back pain for the past month after a radiofrequency ablation to her spine at [facility]. Patient states her symptoms started 3 days postprocedure. She has some weakness on her right lower extremity, overlying L5-S1 and weakness with dorsi and plantarflexion, there is no evidence of cauda equina syndrome however MRI is concerning for extensive epidural abscess throughout the lumbar spine to S2 with possible extension into the psoas muscle. Patient's white count is within normal limits. CRP and ESR slightly elevated. Patient was given a milligram of Dilaudid for pain, ceftriaxone and vancomycin to treat abscess. Patient needs neurosurgical consultation and transfer, [facility] was called at approximately 1400 and have yet to return call. I placed another call at 3 and they said that orthopedics or neurosurgery is yet to call back. Patient will be signed out pending neurosurgical consultation and transfer. Quality:SDOH Health Related Social Needs: No Data to Display Critical Care Time Critical Care Time Attestation: 35 minutes of critical care time secondary to likely specifically diagnosis of epidural abscess for requiring urgent treatment with IV antibiotics, blood cultures, telemetry monitoring, neurological monitoring frequently, neurosurgical consultation at tertiary care center and likely transfer for higher level of care and intervention PFSH All Active Problems (Updated 10/07/23 @ 16:30 by GLADIS Buck) Spinal epidural abscess (Acute) Back pain (Acute) Anxiety (Chronic) JULIO (obstructive sleep apnea) (Chronic) CPAP Pain disorder associated with psychological and physical factors (Acute) Chronic pain (Chronic) Psychological and behavioral factors associated with disorders or diseases classified elsewhere (Acute) Lumbosacral spondylosis without myelopathy (Acute) Chronic pain syndrome (Chronic) Osteoarthritis of knees, bilateral (Chronic) Depo-medrol injection: 06/07/2023; 03/08/2023; 12/04/22; 08/17/2022; 04/20/2022 Encounter for Pap smear of cervix with HPV DNA cotesting (Acute) IUD surveillance (Acute) Counseling for hormone replacement therapy (Acute) Well woman exam (Acute) Medical History Snoring Sciatica Plantar fascial fibromatosis Obesity Knee pain Insomnia Idiopathic osteoarthritis Hyperlipidemia Hip pain Ganglion and cyst of synovium, tendon and bursa Depressive disorder Deformity Carpal tunnel syndrome Calcaneal spur of right foot Arthropathy Surgical History History of bilateral total hip arthroplasty (07/06/23) Ganglion cyst of finger of right hand Achilles tendonitis osteotomy and tendon repair - left Status post carpal tunnel release of both wrists Status post cholecystectomy Status post tubal ligation History of section Family History Mother Hypertension Father Heart disease Social History Smoking/Tobacco Use Status: Former Tobacco Use Quit Date: 05/17/13 Smoking risk assessment performed?: Yes Alcohol Intake: current Alcohol Intake frequency: holidays/special occasions only Alcohol type: wine Drug use: Never Substance use type: does not use Housing: house Do you feel safe at home: Yes Do you feel safe in your relationship?: Yes Sign Out Sign Out Data: Sign Out Comment: pending neurosurgical consultation [facility] [place] [place] epidural abscess Last updated by Yenifer Espinosa PA at 10/07/23 16:09
[2023-10-07] MEDS: HYDROmorphone 2 MG/ML SYR 0.5 MG IVP ×2 (15:46→19:36)
--- NOTE | 2023-10-07 16:23 | W.EDPROG ---
Date of service: 10/07/23 Time of Service: 16:23 Medical Decision Making This dictation utilizes [id number] dictation software and may contain unedited grammatical errors. Patient seen in sign-out from Yenifer Espinosa PA-C, please see their complete note. Essentially this 57 y/o F presents to ED today with a chief complaint of one week of worsening back pain, R LE weakness, denies bowel/urinary changes- had RF ablation L3-S1 on 09/09/23, and was seen at Urgent Care, ordered MRI which shows large spinal epidural abscess with involvement of psoas muscles as well. Patient was able to give voluntary urine here. Patient is pending [facility] Ortho-Spine consult, will likely need transfer to tertiary care facility for decompression with her R LE symptoms- weakness 3/5, no overt foot drop, has some ROM. Patients' medical history: History of sciatica, history of bilateral total hip arthroplasty with prior spinal injection for this procedure chronic pain syndrome, lumbosacral spondylosis without myelopathy. Family and social history: [ ]. Pertinent exam findings / vital signs include R Foot weakness intermittent 2+-3/5, no saddle anesthesia, resting comfortably with nontoxic vitals. Differential / pathologies of concern include spinal epidural abscess. Diagnostic studies of: -CBC, CMP, Lactate, CRP/ESR, Blood Cx's - MRI done prior to arrival. -CBC shows no leukocytosis -CMP unremarkable -CRP 2.5, ESR 72 -Lactate wnl -Blood Cx's pending -MRI shows large spinal epidural abscess extending S2 to T11 (upper limit of view of this study) with thecal compression worst at L3-4 level, abscess involving the ileopsoas muscle partially imaged, and a T12-L1 disc herniation causing compression of cord/thecal sac Interventions of: -IV Ceftriaxone, IV Vancomycin, Dilaudid for pain- all given prior to sign-out. -Consulted with [facility] Ortho-Spine, no capacity, Consulted with [facility] Spine Dr. Hernandez, recommends ED to ED transfer, ED accepting Dr. Palafox at 1815. ED Course/Assessment/Plan: 57-year-old female has been experiencing significant worsening back pain since her radiofrequency ablation of her lumbar spine at pain care here at [facility] on September 08. MRI was ordered by express care provider and she was advised to present immediately to the ED for spinal epidural abscess, the patient likely needs further imaging as the abscess extends above the upper [id number] of the lumbar MRI, likely needs thoracic, there is iliopsoas muscle involvement and the abscess, she also has an incidental T12 disc herniation that is compressing the thecal sac. She has intermittent severe right leg weakness and burning sensation in her right leg, no complete paralysis of the right foot has very limited plantar dorsiflexion. Patient was accepted at [facility] ED to ED transfer per orthospine service of Dr. Rosales. Accepting Dr. Palafox ED to ED, given 0.5mg hydromorphone x2 here, one right before transfer, transferring at S level. Counseled patient and family on transfer. Disposition of Spinal Epidural Abscess. Patient verbalized understanding of the plan and return to ED criteria and engaged in shared decision making. Medical Records Medical records reviewed: Yes I reviewed the patient's medical records. Imaging Data Radiologic Study: Attestation: I personally reviewed and interpreted this imaging study as follows: Imaging: MRI Radiologist's impression: EXAM: MR LUMBAR SPINE WO/W CLINICAL HISTORY: lower back pain, after ablation, new weak rt foot, dorsalgia, M54.9. TECHNIQUE: Multiplanar multisequence MRI of the Lumbar spine was performed. COMPARISON: MR MR LS SPINE W/O CONTRAST from 03/21/2014 XR PA[facility] LUMBAR SP 2V from 09/09/2023 FINDINGS: There are no interval MRI studies since 2013 our PACS. There is a complex peripherally enhancing posterior epidural fluid collection extending the entire length of the lumbosacral spinal column to the S2 level and extending cranially beyond the upper field of view of this study which is upper T11 level. This is highly suspicious for epidural abscess and is causing significant compression of the thecal sac. Maximum transverse diameter measurement of this abnormal epidural collection is at the L5-S1 level (1.7 cm) and maximum AP diameter of 0.9 cm also evident at this level. There is is adjacent to the right facet joint at L5-S1 level which exhibits abnormal signal and surrounding enhancement and may be the epicenter of infection here. Enhancement at this level also involves the right neural foramen and right posterior paraspinal musculature. Conus medullaris is at normal level. However, it is significantly compressed. There is a prominent disc herniation at T12-L1 level which is posterior central and left paracentral and extends posteriorly 9 mm and is approximately 1.8 cm wide, significantly compressing the spinal cord-conus medullaris. There are no other disc herniations and no evidence of discitis nor osteomyelitis. No compression fractures nor listhesis evident. And there is also abnormal signal in the left ileo psoas muscle with possible abscess at this level a partially included in the field of view of this MRI study.. IMPRESSION: 1. Large posterior epidural fluid collection extending the entire length of the lumbosacral spinal canal from S2 up to be on the field of view of this lumbar spine MRI study (T11 level). The most marked thecal sac compression is at L3-4 level. 2. Significant facet arthropathy in the lower lumbar spine and there is significant signal abnormality and enhancement around the right L5/S1 facet joint and neural foramen which may be the etiologic epicenter for this sections process. 3. There is also a significant disc herniation at the T12-L1 level which is adding to the compression of the distal spinal cord-thecal sac. 4. There is also a left ileopsoas muscle abscess but this is only partially included in the field of view. This patient requires further imaging of the thoracic spine as well as the pelvic musculature. Lab Data Lab results reviewed: Yes I reviewed the patient's lab results. Labs: 10/07/23 13:48 Blood Blood Culture - Pending 10/07/23 13:36 Blood Blood Culture - Pending Laboratory Tests Range/Units 10/07/23 10/07/23 13:36 14:13 WBC (4.4-10.8) 10^3/uL 9.04 RBC (3.93-5.22) 10^6/uL 4.56 Hgb (11.2-15.7) g/dL 12.7 Hct (36.0-46.0) % 40.9 MCV (80-95) fL 90 MCH (27.0-33.0) pg 27.9 MCHC (32.0-36.0) % 31.1 L RDW (11.7-14.6) % 15.1 H Plt Count (130-400) 10^3/uL 279 MPV (8.0-11.0) fL 9.7 Immature Gran % % 0.6 Neutrophils % % 80.0 Lymphocytes % % 15.3 Monocytes % % 3.7 Eosinophils % % 0.2 Basophils % % 0.2 Nucleated RBC % (0.0-0.3) % 0.0 Absolute Neutrophils (1.2-6.7) 10^3/uL 7.24 H Absolute Lymphocytes (1.2-3.4) 10^3/uL 1.38 Absolute Monocytes (0.1-0.8) 10^3/uL 0.33 Absolute Eosinophils (0.0-0.7) 10^3/uL 0.02 Absolute Basophils (0.0-0.2) 10^3/uL 0.02 ESR (0-30) mm/hr 72 H VBG Lactate (0.6-1.4) mmol/L 1.1 Sodium (136-145) mmol/L 137 Potassium (3.5-5.1) mmol/L 4.2 Chloride (98-107) mmol/L 102 Carbon Dioxide (21.0-32.0) mmol/L 26.6 Anion Gap (3-11) mmol/L 8.4 BUN (7-18) mg/dL 10 Creatinine (0.55-1.02) mg/dL 0.6 Est GFR (CKD-EPI 2020) (mL/min/1.73m2) 103.98 Glucose (74-106) mg/dL 153 H Calcium (8.5-10.1) mg/dL 9.4 Total Bilirubin (0.2-1.0) mg/dL 0.5 AST (15-37) U/L 7 L ALT (14-59) U/L 20 Alkaline Phosphatase (46-116) U/L 68 C-Reactive Protein (<or=0.5) mg/dL 2.48 H Total Protein (6.4-8.2) g/dL 7.7 Albumin (3.4-5.0) g/dL 3.1 L Urine Color (Yellow) Yellow Urine Clarity (Clear) Clear Urine pH (5-8) 6.5 Ur Specific [place] (1.005-1.025) 1.020 Urine Protein (Neg-Trace) mg/dL Negative Urine Ketones (Negative) mg/dL Negative Urine Blood (Negative) Negative Urine Nitrite (Negative) Negative Urine Bilirubin (Negative) Negative Urine Urobilinogen (Up to 0.2) mg/dL 0.2 Ur Leukocyte Esterase (Negative) Negative Urine Glucose (Negative) mg/dL Negative Quality:SDOH Health Related Social Needs: No Data to Display Sign Out Sign Out Data: Sign Out Comment: pending neurosurgical consultation [facility] [place] epidural abscess Last updated by Yenifer Espinosa PA at 10/07/23 16:09 Discharge Plan Disposition Patient Disposition: Transfer-Acute Inpatient Care Specific Acute Inpt Facility: [facility] Condition: Stable Discharge Details Clinical Impression: Spinal epidural abscess Primary Care Provider: Percy Roche ED Provider: Saw Vera [place] Meds and New Rx's Prescriptions: No Action gabapentin 100 mg capsule 300 mg PO TID sertraline 100 mg tablet 150 mg PO DAILY tramadol 50 mg tablet 50 mg PO Q12H PRN magnesium 250 mg tablet 500 mg PO DAILY losartan 25 mg tablet 25 mg PO DAILY acetaminophen 500 mg tablet 1,000 mg PO Q8H PRN Qty: 90 0RF Rx Instructions: Take two tablets up to every 8 hours as needed for pain lidocaine 5 % Adhesive Patch,Medicated 2 patch topical DAILY Qty: 10 1RF methocarbamol 1,000 mg tablet 1,000 mg PO QID PRNQty: 20 0RF
[2023-10-07] MEDS: VANCOMYCIN/WATER (PEG) 2 GM/400 ML BAG IVPB (16:25)
== END 2023-10-07 19:47 | disposition short-term general hospital (02) ==
PROVIDERS: Physician Assistant; Emergency Provider Physician Assistant; PCP Neuromusculoskeletal Medicine & OMM
DX: G06.1 Intraspinal abscess and granuloma (principal); M54.50 Low back pain, unspecified
CPT/HCPCS: 00123; 36415; 80053; 85652; 87040; 96365; 96366; 96367; 96375; 96376; 99291; 81003; 83605; 85025; 86140; J0696; J1170; J3372

== ENCOUNTER 2023-10-18 12:47 | Outpatient (REF) | payer MEDICAID, SELFPAY ==
[2023-10-18 13:07] LABS: Absolute Basophil Count 0.02 10^3/uL (0.0-0.2); Absolute Eosinophil Count 0.14 10^3/uL (0.0-0.7); Absolute Lymphocyte Count 2.35 10^3/uL (1.2-3.4); Absolute Monocyte Count 0.59 10^3/uL (0.1-0.8); Absolute Neutrophil Count 4.52 10^3/uL (1.2-6.7); Basophils % 0.3 %; Eosinophils % 1.8 %; HCT 33.4 % (36.0-46.0); HGB 10.2 g/dL (11.2-15.7); Immature Grans % 1.3 %; Lymphocytes % 30.4 %; MCH 27.7 pg (27.0-33.0); MCHC 30.5 % (32.0-36.0); MCV 91 fL (80-95); MPV 10.3 fL (8.0-11.0); Monocytes % 7.6 %; Neutrophils % 58.6 %; Platelet Count 311 10^3/uL (130-400); RBC 3.68 10^6/uL (3.93-5.22); RDW-SD 49.8 fL; WBC 7.72 10^3/uL (4.4-10.8)
[2023-10-18 13:12] LABS: CREATININE 0.7 mg/dL (0.55-1.02); Estimated GFR 100.19 (mL/min/1.73m2)
== END 2023-10-18 12:48 | disposition home or self-care (01) ==
LOC: LBN 12:47
PROVIDERS: PCP Neuromusculoskeletal Medicine & OMM; Visit Provider Nurse Practitioner Gerontology
DX: M54.59 Other low back pain (principal); G89.4 Chronic pain syndrome; G06.1 Intraspinal abscess and granuloma; Z79.2 Long term (current) use of antibiotics; Z79.899 Other long term (current) drug therapy
CPT/HCPCS: 82565; 85025

== ENCOUNTER 2023-11-01 13:26 | Outpatient (REF) | payer MEDICAID, SELFPAY ==
[2023-11-01 13:58] LABS: Abs Immature Grans 0.02 10^3/uL (0.0-0.06); Absolute Basophil Count 0.02 10^3/uL (0.0-0.2); Absolute Eosinophil Count 0.23 10^3/uL (0.0-0.7); Absolute Lymphocyte Count 1.67 10^3/uL (1.2-3.4); Absolute Monocyte Count 0.51 10^3/uL (0.1-0.8); Basophils % 0.3 %; Eosinophils % 3.3 %; HCT 36.5 % (36.0-46.0); Immature Grans % 0.3 %; Lymphocytes % 23.7 %; MCH 27.1 pg (27.0-33.0); MCHC 30.1 % (32.0-36.0); MCV 90 fL (80-95); MPV 10.7 fL (8.0-11.0); Monocytes % 7.2 %; Neutrophils % 65.2 %; Platelet Count 271 10^3/uL (130-400); RBC 4.06 10^6/uL (3.93-5.22); RDW 15.6 % (11.7-14.6); RDW-SD 51.2 fL; WBC 7.05 10^3/uL (4.4-10.8)
[2023-11-01 14:55] LABS: Magnesium 1.7 mg/dL (1.8-2.4)
== END 2023-11-01 13:27 | disposition home or self-care (01) ==
LOC: LBN 13:26
PROVIDERS: PCP Neuromusculoskeletal Medicine & OMM; Visit Provider Nurse Practitioner Gerontology
DX: G06.2 Extradural and subdural abscess, unspecified (principal); Z79.2 Long term (current) use of antibiotics
CPT/HCPCS: 83735; 85025

== ENCOUNTER 2023-11-09 15:19 | Outpatient (REF) | payer MEDICAID, SELFPAY ==
[2023-11-09 15:26] LABS: Abs Immature Grans 0.03 10^3/uL (0.0-0.06); Absolute Basophil Count 0.02 10^3/uL (0.0-0.2); Absolute Eosinophil Count 0.38 10^3/uL (0.0-0.7); Absolute Lymphocyte Count 1.69 10^3/uL (1.2-3.4); Absolute Monocyte Count 0.68 10^3/uL (0.1-0.8); Absolute Neutrophil Count 3.59 10^3/uL (1.2-6.7); Basophils % 0.3 %; Eosinophils % 5.9 %; HCT 38.3 % (36.0-46.0); HGB 12.1 g/dL (11.2-15.7); Immature Grans % 0.5 %; Lymphocytes % 26.4 %; MCH 27.2 pg (27.0-33.0); MCHC 31.6 % (32.0-36.0); MCV 86 fL (80-95); MPV 10.5 fL (8.0-11.0); Monocytes % 10.6 %; Neutrophils % 56.3 %; Platelet Count 223 10^3/uL (130-400); RBC 4.45 10^6/uL (3.93-5.22); RDW 15.8 % (11.7-14.6); RDW-SD 49.5 fL; WBC 6.39 10^3/uL (4.4-10.8)
[2023-11-09 15:37] LABS: CREATININE 0.6 mg/dL (0.55-1.02); Estimated GFR 103.33 (mL/min/1.73m2)
== END 2023-11-09 15:20 | disposition home or self-care (01) ==
LOC: LBN 15:19
PROVIDERS: PCP Neuromusculoskeletal Medicine & OMM; Visit Provider Neurological Surgery
DX: G06.1 Intraspinal abscess and granuloma (principal); Z79.2 Long term (current) use of antibiotics
CPT/HCPCS: 82565; 85025

== ENCOUNTER 2023-11-10 14:15 | Outpatient (RCR) | payer MEDICAID, SELFPAY ==
[2023-10-26] MEDS: Water,Injection,Sterile 10 ML VIAL (09:08)
[2023-10-26] MEDS: Alteplase 2 MG VIAL IJ (09:08)
[2023-10-26 10:43] LABS: Eosinophils % 3.1 %; HCT 34.6 % (36.0-46.0); HGB 10.8 g/dL (11.2-15.7); Lymphocytes % 24.4 %; MCH 27.3 pg (27.0-33.0); MCHC 31.2 % (32.0-36.0); MCV 88 fL (80-95); MPV 10.7 fL (8.0-11.0); Monocytes % 7.8 %; Platelet Count 325 10^3/uL (130-400); RBC 3.95 10^6/uL (3.93-5.22); RDW 14.9 % (11.7-14.6); WBC 7.71 10^3/uL (4.4-10.8)
[2023-10-26 10:44] LABS: Abs Immature Grans 0.03 10^3/uL (0.0-0.06); Absolute Basophil Count 0.02 10^3/uL (0.0-0.2); Absolute Eosinophil Count 0.24 10^3/uL (0.0-0.7); Absolute Lymphocyte Count 1.88 10^3/uL (1.2-3.4); Absolute Neutrophil Count 4.94 10^3/uL (1.2-6.7); Basophils % 0.3 %; Immature Grans % 0.4 %
[2023-10-26] MEDS: Normal Saline Flush 10 ML SYR IVP (10:45)
[2023-10-26 11:04] LABS: CREATININE 0.6 mg/dL (0.55-1.02); Estimated GFR 103.98 (mL/min/1.73m2)
[2023-11-10] MEDS: Water,Injection,Sterile 10 ML VIAL (14:12)
[2023-11-10] MEDS: Alteplase 2 MG VIAL (14:12)
[2023-11-10] MEDS: Normal Saline Flush 10 ML SYR IVP (14:17)
== END 2023-11-14 23:59 | disposition home or self-care (01) ==
LOC: INF 14:15
PROVIDERS: Internal Medicine Infectious Disease; PCP Neuromusculoskeletal Medicine & OMM; Visit Provider Nurse Practitioner Acute Care
DX: G06.2 Extradural and subdural abscess, unspecified (principal)
CPT/HCPCS: 36592; 82565; 85025; J2997

== ENCOUNTER 2023-11-15 12:25 | Outpatient (REF) | payer MEDICAID, SELFPAY ==
[2023-11-15 13:01] LABS: Abs Immature Grans 0.01 10^3/uL (0.0-0.06); Absolute Basophil Count 0.02 10^3/uL (0.0-0.2); Absolute Eosinophil Count 0.37 10^3/uL (0.0-0.7); Absolute Lymphocyte Count 1.07 10^3/uL (1.2-3.4); Absolute Monocyte Count 0.41 10^3/uL (0.1-0.8); Absolute Neutrophil Count 3.64 10^3/uL (1.2-6.7); Basophils % 0.4 %; Eosinophils % 6.7 %; HCT 36.6 % (36.0-46.0); HGB 11.4 g/dL (11.2-15.7); Immature Grans % 0.2 %; Lymphocytes % 19.4 %; MCHC 31.1 % (32.0-36.0); MCV 87 fL (80-95); MPV 11.1 fL (8.0-11.0); Monocytes % 7.4 %; Neutrophils % 65.9 %; Platelet Count 203 10^3/uL (130-400); RBC 4.22 10^6/uL (3.93-5.22); RDW 16.1 % (11.7-14.6); RDW-SD 50.5 fL; WBC 5.52 10^3/uL (4.4-10.8)
[2023-11-15 13:10] LABS: Magnesium 1.8 mg/dL (1.8-2.4)
== END 2023-11-15 12:26 | disposition home or self-care (01) ==
LOC: LBN 12:25
PROVIDERS: PCP Neuromusculoskeletal Medicine & OMM; Visit Provider Nurse Practitioner Gerontology
DX: G06.1 Intraspinal abscess and granuloma (principal); Z79.2 Long term (current) use of antibiotics
CPT/HCPCS: 83735; 85025

== ENCOUNTER 2023-11-22 18:16 | Outpatient (REF) | payer MEDICAID, SELFPAY ==
[2023-11-22 16:12] LABS: Abs Immature Grans 0.02 10^3/uL (0.0-0.06); Absolute Basophil Count 0.02 10^3/uL (0.0-0.2); Absolute Eosinophil Count 0.37 10^3/uL (0.0-0.7); Absolute Lymphocyte Count 1.51 10^3/uL (1.2-3.4); Absolute Monocyte Count 0.59 10^3/uL (0.1-0.8); Absolute Neutrophil Count 4.09 10^3/uL (1.2-6.7); Basophils % 0.3 %; Eosinophils % 5.6 %; HCT 37.9 % (36.0-46.0); HGB 11.7 g/dL (11.2-15.7); Immature Grans % 0.3 %; Lymphocytes % 22.9 %; MCH 27.1 pg (27.0-33.0); MCHC 30.9 % (32.0-36.0); MCV 88 fL (80-95); MPV 10.6 fL (8.0-11.0); Monocytes % 8.9 %; Platelet Count 247 10^3/uL (130-400); RBC 4.32 10^6/uL (3.93-5.22); RDW 16.2 % (11.7-14.6); RDW-SD 52.2 fL
[2023-11-22 16:44] LABS: Magnesium 1.8 mg/dL (1.8-2.4)
== END 2023-11-22 18:17 | disposition home or self-care (01) ==
LOC: LBN 18:16
PROVIDERS: PCP Neuromusculoskeletal Medicine & OMM; Visit Provider Nurse Practitioner Gerontology
DX: G06.1 Intraspinal abscess and granuloma (principal); Z79.2 Long term (current) use of antibiotics
CPT/HCPCS: 83735; 85025

== ENCOUNTER 2024-01-24 11:49 | Outpatient (REF) | payer MEDICAID, SELFPAY ==
--- NOTE | 2024-01-24 11:30 | PAPFT_PTH ---
PATIENT: Rox Cervantes LOC: [facility] U#:[id number] AGE/SX: 58/F ROOM: RE01/24/[address]: Clary Osullivan NP : 1965 BED: DIS: 01/24/2024 SPEC #: [id number] RECD: 01/24/24 13:05 STATUS: JEANETH REAmado #: [id number] DEBORA: 01/24/24 11:[address]: Clary Osullivan NP DEPT: [facility] Cytology RECD BY: Yenifer Leon ENTERED: 01/24/24 13:05 SP TYPE: PAPFT OTHR DR: Percy Roche Tissues: 1 - CX/ENDOCX FOR PAP SMEARS Procedures: PAP THIN PREP/[facility] Screening HPV DNA PROBE Comments: [id number] (HPV 16 & 18/45)
== END 2024-01-24 11:50 | disposition home or self-care (01) ==
LOC: LBN 11:49
PROVIDERS: PCP Neuromusculoskeletal Medicine & OMM; Visit Provider Nurse Practitioner Women's Health
DX: Z12.39 Encounter for other screening for malignant neoplasm of breast (principal); Z12.11 Encounter for screening for malignant neoplasm of colon; Z01.419 Encounter for gynecological examination (general) (routine) without abnormal findings; B97.7 Papillomavirus as the cause of diseases classified elsewhere; Z12.31 Encounter for screening mammogram for malignant neoplasm of breast
CPT/HCPCS: 88142; 87624

== ENCOUNTER 2024-07-10 12:52 | Outpatient (CLI) | payer MEDICAID, SELFPAY ==
--- NOTE | 2024-07-10 09:45 | DI.RAD_ITS ---
Exam(s) XR HIP LT AP LAT ONLY XR HIP RT AP LAT ONLY EXAM: XR HIP RT AP LAT ONLY CLINICAL HISTORY: ANNUAL F/U BILAT THAs. TECHNIQUE: 2D digital imaging was performed. Two views of both hips COMPARISON: CR XR HIP PELVIS ADULT BL from 07/19/2023 CR XR HIP LT AP LAT ONLY from 07/10/2024 FINDINGS: BONES: No acute fracture is present. No bony destructive lesion is seen. JOINTS: No dislocation present. Stable alignment of bilateral hip prostheses. SOFT TISSUE: Normal. IMPRESSION: No acute abnormality. Stable appearance of bilateral hip prostheses. DATA REPOSITORY: RADIATION DOSE DELIVERED:
== END 2024-07-10 12:53 | disposition home or self-care (01) ==
LOC: DIORS 12:52
PROVIDERS: PCP Neuromusculoskeletal Medicine & OMM; Visit Provider Physician Assistant
DX: Z96.643 Presence of artificial hip joint, bilateral (principal); Z47.1 Aftercare following joint replacement surgery
CPT/HCPCS: 73502

== ENCOUNTER 2024-08-22 00:55 | Outpatient (CLI) | payer MEDICAID, SELFPAY ==
--- NOTE | 2024-08-22 06:15 | DI.MAMMO_ITS ---
Exam(s) MAMMO SCREENING EXAM: MAMMO SCREENING CLINICAL HISTORY: screening,z12.39 TECHNIQUE: Mammograms were interpreted according to the usual protocol including computer analysis w [employer] CAD system, tomosynthesis and C-view imaging. COMPARISON: 2020 FINDINGS: The breasts are composed of mainly fatty density , Breast Density category A. No suspicious masses or suspicious microcalcifications are seen. No skin thickening or abnormal axillary lymph nodes are seen. There has been no significant change from prior exams. IMPRESSION: BI-RADS Category 1, Negative mammogram Yearly screening mammography is recommended. Breast Density - Category A, fatty density. A negative radiographic report should not delay biopsy if a dominant or clinically suspicious mass is present. Up to ten percent of cancers are not identified on mammography. A negative report may reinforce clinical impression. Adenosis and dense breasts may obscure an underlying neoplasm. False positive reports average 6 to 10%. Patient will receive a letter notifying them of these results.
== END 2024-08-22 01:15 ==
LOC: DI 00:56
PROVIDERS: PCP Neuromusculoskeletal Medicine & OMM; Visit Provider Nurse Practitioner Women's Health
DX: Z12.31 Encounter for screening mammogram for malignant neoplasm of breast (principal); R92.313 Mammographic fatty tissue density, bilateral breasts
CPT/HCPCS: 77063; 77067

== ENCOUNTER 2024-10-23 14:06 | Outpatient (CLI) | payer MEDICAID, SELFPAY ==
--- NOTE | 2024-10-23 13:30 | DI.RAD_ITS ---
Exam(s) XR WRIST RT COMPLETE EXAM: XR WRIST RT COMPLETE CLINICAL HISTORY: R wrist pain. TECHNIQUE: 2D digital imaging was performed. COMPARISON: No exams were available for comparison FINDINGS: 3 views No evidence of acute fracture or dislocation nor significant ulnar variance. Scaphoid and scapholuna te distance unremarkable. Bone density normal. No osseous lesions. There are mild degenerative dl nges at the 1st carpometacarpal joint. IMPRESSION: Mild degenerative changes at the 1st carpometacarpal joint. No other significant radiographic findin gs in the right wrist. DATA REPOSITORY: RADIATION DOSE DELIVERED:
== END 2024-10-23 14:07 | disposition home or self-care (01) ==
LOC: DIORS 14:07
PROVIDERS: PCP Neuromusculoskeletal Medicine & OMM; Referring Provider Neuromusculoskeletal Medicine & OMM; Visit Provider Physician Assistant
DX: M19.031 Primary osteoarthritis, right wrist (principal)
CPT/HCPCS: 73110

== ENCOUNTER 2025-01-29 13:42 | Outpatient (REF) | payer MEDICAID, SELFPAY ==
--- NOTE | 2025-01-29 13:15 | PAPFT_PTH ---
PATIENT: Rox Cervantes LOC: [facility] U#:[id number] AGE/SX: 59/F ROOM: RE01/29/[address]: Clary Osullivan NP : 1965 BED: DIS: 01/29/2025 SPEC #: [id number] RECD: 01/29/25 18:00 STATUS: JEANETH AYAN #: [id number] DEBORA: 01/29/25 13:[address]: Clary Osullivan NP DEPT: [facility] Cytology RECD BY: Yenifer Leon ENTERED: 01/29/25 18:00 SP TYPE: PAPFT OTHR DR: Percy Roche Tissues: 1 - CX/ENDOCX FOR PAP SMEARS Procedures: PAP THIN PREP/[facility] Screening HPV DNA PROBE Comments: [id number] (HPV 16 & 18/45)
== END 2025-01-29 13:43 | disposition home or self-care (01) ==
LOC: LBN 13:42
PROVIDERS: PCP Neuromusculoskeletal Medicine & OMM; Visit Provider Nurse Practitioner Women's Health
DX: Z12.4 Encounter for screening for malignant neoplasm of cervix (principal)
CPT/HCPCS: 88142; 87624